=== PATIENT | male | born 1955 | race Caucasian/White ===

== ENCOUNTER 2020-11-23 09:25 | Inpatient (IN) | payer MEDICARE, OTHER ==
[~2020-11-23] VITALS: Ht 170.2 cm; Wt 87.1 kg
--- NOTE | 2020-11-23 09:45 | NUR ---
BIBRA39 HOME, WEAKNESS, DIARRHEA X 3 WEEKS. "I FAINT GOING TO THE BATHROOM" POSITIVE COVID19 CONTACTS. "BLACK TARRY STOOL NOTED." PATIENT A/OX4, BREATHING EVEN AND UNLABORED, NOS OB NOTED. PATIENT COVERED WITH BLACK STOOLS. CLEANED UP THE PATIENT. CHANGED INTO A GOWN. PERICARE AND SKINCARE PROVIDED.
[2020-11-23] MEDS ORDERED: PANTOPRAZOLE 40 MG VIAL ONE (09:48)
[2020-11-23] MEDS ORDERED: IV NS 0.9% 500 ML BAG IV ONE (10:00)
[2020-11-23] MEDS ORDERED: PANTOPRAZOLE 40 MG VIAL IV ONE (10:00)
[2020-11-23 10:25] LABS: BASOPHILS % (AUTO) 0.3 % (0.0-2.0); HEMATOCRIT 21 % (39-51); HEMOGLOBIN 7.4 g/dL (13.5-17.5); LYMPHOCYTES # (AUTO) 0.8 /CMM (0.8-4.8); LYMPHOCYTES % (AUTO) 11.8 % (20.0-44.0); MEAN CORPUSCULAR HGB CONC 35 g/dl (31.0-36.0); MEAN CORPUSCULAR VOLUME 92 fL (80-96); MONOCYTES # (AUTO) 0.5 /CMM (0.1-1.30); MONOCYTES % (AUTO) 7.6 % (2.0-12.0); NEUTROPHILS # (AUTO) 5.6 /CMM (1.8-8.9); NEUTROPHILS % (AUTO) 80.3 % (43.0-81.0); PLATELET COUNT (AUTO) 155 /CMM (150-450); RED BLOOD CELL COUNT(AUTO) 2.31 MIL/uL (4.5-6.0); WHITE BLOOD COUNT (AUTO) 6.9 K/uL (4.3-11.0)
--- NOTE | 2020-11-23 10:41 | NUR ---
COVID SWAB SENT. PATIENT WITH O2 SAT OF 80% ON ROOM AIR, PLACED PATIENT ON 4LPM VIA NC. NO DISTRESS NOTED. NEEDS ATTENDED.
[2020-11-23 11:00] LABS: ALANINE AMINOTRANSFERASE 41 U/L (12-78); ALBUMIN 2.8 g/dL (3.4-5.0); ALKALINE PHOSPHATASE 73 U/L (46-116); ASPARTATE AMINOTRANSFERASE 58 U/L (15-37); BILIRUBIN,DIRECT 0.2 mg/dL (0.0-0.2); BILIRUBIN,TOTAL 0.4 mg/dL (0.2-1.0); CALCIUM, SERUM 7.4 mg/dL (8.5-10.1); CARBON DIOXIDE 16 mmol/L (21-32); CHLORIDE 100 mmol/L (98-107); CREATININE 6.8 mg/dL (0.6-1.3); GLUCOSE 146 mg/dL (74-106); LIPASE 533 U/L (73-393); POTASSIUM 4.6 mmol/L (3.5-5.1); SODIUM SERUM 136 mmol/L (136-145); TOTAL PROTEIN, SERUM 6.5 g/dL (6.4-8.2)
[2020-11-23 11:05] LABS: UREA NITROGEN, BLOOD 199 mg/dL (7-18)
[2020-11-23] MEDS ORDERED: LOSA1TAB39 PO (11:09)
[2020-11-23] MEDS ORDERED: SIMV-46 PO (11:09)
[2020-11-23] MEDS ORDERED: METF-440 PO (11:09)
[2020-11-23] MEDS ORDERED: AMLO2.5T4 PO (11:09)
[2020-11-23] MEDS ORDERED: ATEN50TA PO (11:09)
--- NOTE | 2020-11-23 11:17 | NUR ---
16FR DEMARCO CATH INSERTED PER VERBAL ORDER FROM DR TIAN
[2020-11-23] MEDS ORDERED: LEVOFLOXACIN 750 MG /D5W 150ML 150 ML IV ONE ×2 (11:23→11:30)
[2020-11-23] MEDS ORDERED: IV NS 0.9% 1,000 ML BAG IV ONE (11:30)
[2020-11-23] MEDS ORDERED: ZOLPIDEM TARTRATE 5 MG TABLET PO PRN (11:30)
[2020-11-23] MEDS ORDERED: ONDANSETRON HCL/PF 4 MG/2 ML VIAL IVP PRN (11:30)
[2020-11-23] MEDS ORDERED: MAG HYDROX/AL HYDROX/SIMETH 30 ML UDC PO PRN (11:30)
[2020-11-23] MEDS ORDERED: Z GUARD REMEDY 2 OZ OINT TP PRN (11:30)
[2020-11-23] MEDS ORDERED: FAMOTIDINE/PF INJ 20 MG/2 ML VIAL IV SCH (12:00)
--- NOTE | 2020-11-23 14:06 | NUR ---
CALLED NURSING SUP FOR TELE BED.
--- NOTE | 2020-11-23 15:42 | NUR ---
PT IS COVID + PER RAPID SWAB
--- NOTE | 2020-11-23 15:46 | NUR ---
BED 204-2
--- NOTE | 2020-11-23 15:50 | NUR ---
REPORT GIVENT Lashell TOVAR RN FOR EMMANUEL.
[2020-11-23] MEDS: DEXAMETHASONE SOD PHOSPHATE 10 MG/ML VIAL IV SCH (16:00)
--- NOTE | 2020-11-23 16:33 | NUR ---
PATIENT TRANSFERRED TO ROOM 204-2 VIA ACLS PROTOCOL. NO DISTRESS NOTED. NEEDS ATTENDED.
[2020-11-23 17:24] LABS: C-REACTIVE PROTEIN 5.7 mg/dL (0.0-0.9)
[2020-11-23] MEDS: PANTOPRAZOLE 40 MG VIAL IV SCH (17:25)
--- NOTE | 2020-11-23 18:51 | NUR ---
RN closing Patient in bed resting, does no appears pain or discomfort. Skin is warm to touch keep clean/dry, intact site with SL. Respiratory even and unlabored with oxygen at 15LPM with NRM O2sat 99%. Kept elevated HOB for ensure air way and aspiration precaution and lowest bed for safety. Call light within reach, will endorse airdox fitter.
--- NOTE | 2020-11-23 19:30 | NUR ---
TELE/RN OPENING NOTES RECEIVED PATIENT IN BED RESTING. PATIENT IS ALERT AND ORIENTED X 4. PATIENT BREATHING IS LABORED, NO SIGNS OF RESPIRATORY DISTRESS NOTED. PATIENT HAS RIGHT WRIST #18G AND LEFT FA #20G. SAFETY MEASURES ARE IN PLACE, BED IS LOCKED AND PLACED IN THE LOW POSITION , SIDE RAILS UP X 2, CALL LIGHT WITHIN REACH. WILL CONTINUE TO MONITOR THROUGH OUT SHIFT.
[2020-11-23 20:00] VITALS: BP 90/54
[2020-11-23] MEDS ORDERED: SIMVASTATIN 20 MG TABLET PO SCH (22:00)
[2020-11-23 23:25] VITALS: BP 86/46
--- NOTE | 2020-11-23 23:25 | NUR ---
TELE/RN NOTES PATIENT STARTED ON BLOOD TRANSFUSION. STARTED ON LEFT FA, IV ACCESS INTACT. V/S BP 85/46 HR 76 RR 24 ON 15L NRM 97% TEMP 97.6. WILL CONTINUE TO MONITOR.
[2020-11-23 23:45] VITALS: BP 85/43
[2020-11-23] MEDS: HYDROCODONE/APAP 5/325MG TABLET PO PRN (23:50)
[2020-11-24] VITALS (9 sets, daily range): BP systolic 80–104; BP diastolic 42–64
[2020-11-24] MEDS: HYDROCODONE/APAP 5/325MG TABLET PO PRN (01:06)
[2020-11-24 07:00] LABS: BASOPHILS % (AUTO) 0.5 % (0.0-2.0); HEMATOCRIT 23 % (39-51); HEMOGLOBIN 7.8 g/dL (13.5-17.5); LYMPHOCYTES # (AUTO) 0.3 /CMM (0.8-4.8); MEAN CORPUSCULAR HGB CONC 34 g/dl (31.0-36.0); MEAN CORPUSCULAR VOLUME 93 fL (80-96); MONOCYTES # (AUTO) 0.2 /CMM (0.1-1.30); MONOCYTES % (AUTO) 5.5 % (2.0-12.0); NEUTROPHILS # (AUTO) 2.9 /CMM (1.8-8.9); PLATELET COUNT (AUTO) 104 /CMM (150-450); RED BLOOD CELL COUNT(AUTO) 2.45 MIL/uL (4.5-6.0); WHITE BLOOD COUNT (AUTO) 3.5 K/uL (4.3-11.0)
--- NOTE | 2020-11-24 07:00 | NUR ---
TELE/RN CLOSING NOTES PATIENT IN BED RESTING. PATIENT IS ALERT AND ORIENTED X 4. PATIENT BREATHING IS UNLABORED, NO SIGNS OF RESPIRATORY DISTRESS NOTED. PATIENT HAS RIGHT WRIST #18G AND LEFT FA #20G. PATIENT RECEIVED BLOOD TRANSFUSION ENDED AT 0238HRS. PATIENT IS HYPOTENSIVE. ALL NEEDS HAVE BEEN MET DURING SHIFT. SAFETY MEASURES ARE IN PLACE, BED IS LOCKED AND PLACED IN THE LOW POSITION , SIDE RAILS UP X 2, CALL LIGHT WITHIN REACH. WILL ENDORSE CARE TO DAY SHIFT NURSE.
--- NOTE | 2020-11-24 07:55 | NUR ---
MAIL COURIER OPEN NOTES PATIENT IS A/O X 4 WITH NO SIGNS OF DISTRESS ON 15L NONE-REBREATHER. IV R WRIST 18G AND L FA #20G INTACT. NO COMPLAIN OF PAIN AT THIS TIME. ON TELE MONITOR SR 62. SAFETY MEASURES ARE APPLIED, BED IS IN LOW POSITION SIDE RAILS UP X 2. CALL LIGHT WITHIN REACH. WILL CONTINUE TO MONITOR.
[2020-11-24 08:33] LABS: ALBUMIN 2.2 g/dL (3.4-5.0); BILIRUBIN,TOTAL 0.4 mg/dL (0.2-1.0); CALCIUM, SERUM 6.7 mg/dL (8.5-10.1); CREATININE 5.3 mg/dL (0.6-1.3); MAGNESIUM 2.2 mg/dL (1.8-2.4); PHOSPHORUS 6.1 mg/dL (2.5-4.9); POTASSIUM 4.5 mmol/L (3.5-5.1); TOTAL PROTEIN, SERUM 5.4 g/dL (6.4-8.2)
[2020-11-24] MEDS ORDERED: AMLODIPINE BESYLATE 2.5 MG TABLET PO SCH (09:00)
[2020-11-24] MEDS ORDERED: ATENOLOL 50 MG TABLET PO SCH (09:00)
--- NOTE | 2020-11-24 09:17 | NUR ---
INFORMED DR. RAYMOND ABOUT PATIENT ELEVATED TROPONIN 4.537.
--- NOTE | 2020-11-24 09:24 | NUR ---
RN NOTES RELAYED BUN 175 AND LOW BP OF 88/[address] RUTHERFORD WITH ORDER FOR NS BOLUS 500ML.
[2020-11-24] MEDS ORDERED: HEPARIN INFUSION/D5W 500 ML IV PRN (09:30)
[2020-11-24] MEDS ORDERED: IV NS 0.9% 500 ML IV ONE (09:30)
[2020-11-24] MEDS: ASPIRIN 81 MG TAB.CHEW PO SCH (09:33)
[2020-11-24] MEDS: DEXAMETHASONE SOD PHOSPHATE 10 MG/ML VIAL IV SCH (09:33)
[2020-11-24] MEDS: PANTOPRAZOLE 40 MG VIAL IV SCH ×2 (09:33→16:06)
--- NOTE | 2020-11-24 09:40 | NUR ---
CALLED DR. RAYMOND TO CLARIFY ORDER FOR HEPARIN DRIP SINCE PATIENT IS A GI BLEED, ANEMIC. S/P BLOOD TRANSFUSION ON 11/24/2019 @0200. DR. RAYMOND SAID TO CLARIFY ODER FIRST WITH DR. RUTHERFORD BEFORE STARTING .
--- NOTE | 2020-11-24 09:45 | NUR ---
CALLED DR. RUTHERFORD TO CLARIFY FIRST IF ITS OK TO START PATIENT ON HEPARIN DRIP DO TO ELEVATED TROPONIN 4.537. NO ANSWER YET WAITING FOR ORDERS.
--- NOTE | 2020-11-24 11:16 | NUR ---
INFORMED DR. RAYMOND ABOUT NOT HAVING CLARIFIED ORDERS YET FROM DR. RUTHERFORD IF ITS OK TO START PATIENT ON HEPARIN DRIP DO TO ELEVATED TROPONIN 4.537.
--- NOTE | 2020-11-24 11:35 | NUR ---
CALLED DR. RUTHERFORD TO CLARIFY AGAIN TO SEE IF ITS OK TO START PATIENT ON HEPARIN DRIP DO TO ELEVATED TROPONIN 4.537. NO ANSWER YET WAITING FOR ORDERS. SPOKE TO CHARGE NURSE JONI ABOUT IT AND SAID TO HOLD HEPARIN DRIP UNTIL GETTING CONFORMATION FOR HE ORDER FROM DR. RUTHERFORD.
--- NOTE | 2020-11-24 11:40 | NUR ---
INFORMED PHARMACY WE ARE HOLDING HEPARIN DRIP UNTIL WE GET THE OK TO START PATIENT ON HEPARIN DRIP FROM DR. RUTHERFORD. WILL CONTINUE TO MONITOR PATIENT.
--- NOTE | 2020-11-24 12:00 | NUR ---
PER DR. SANGEETA MISTRY TO GIVE HEPARIN DRIP ORDERED BY DR. RAYMOND.
--- NOTE | 2020-11-24 13:30 | NUR ---
HEPARIN DRIP WAS INITIALLY STARTED, EDUCATED PATIENT ON HEPARIN DRIP TO WATCH FOR ANY BLEEDING, PATIENT REPEATED BACK UNDERSTANDING, WILL CONTINUE TO MONITOR.
[2020-11-24] MEDS: ACETAMINOPHEN 325 MG TABLET PO PRN (17:22)
--- NOTE | 2020-11-24 19:44 | NUR ---
GAS METER CHECKER CLOSING NOTES PATIENT IS A/O X 4 WITH NO SIGNS OF DISTRESS ON 15L NONE-REBREATHER. IV L FA #20G INTACT RUNNING HEPARIN 1,100 U/HR PER HEPARIN PROTOCOL. NO COMPLAIN OF PAIN AT THIS TIME. ON TELE MONITOR SR 62. PATIENT KEPT CLEAN AND DRY. ALL NEEDS, CARE, TREATMENT, AND MEDICATIONS WERE ADMINISTERED ANTICIPATED PER ORDER. SAFETY MEASURES ARE APPLIED, BED IS IN LOW POSITION SIDE RAILS UP X 2. CALL LIGHT WITHIN REACH WILL ENDORSE TO THE ANNUAL CAMPAIGN MANAGER NURSE.
--- NOTE | 2020-11-24 20:24 | NUR ---
MANAGER SECURITY AND SAFETY OPENING NOTE Patient awake in bed, A/O x4, on bedrest. Tele monitor reading sinus rhythm. Breathing even, unlabored on 15 LPM non-rebreather mask. Skin is warm, pink, dry, appropriate for ethnicity, intact. Mild weakness noted on lower extremities. Borden catheter in place. Urine output clear, yellow. Patient is NPO except medications. IV site LFA 20g running heparin gtt @ 1100 units/hr. Bed in low position, wheels locked, side rails up x2, call light within reach.
--- NOTE | 2020-11-24 21:49 | NUR ---
RESPIRATORY MEDICINE PHYSICIAN NOTE Critical lab value reported. aPTT 108.4. Hospitalist notified. Heparin gtt stop for 1 hour. Will continue to monitor.
[2020-11-25] VITALS (9 sets, daily range): BP systolic 80–115; BP diastolic 51–72
--- NOTE | 2020-11-25 02:37 | NUR ---
BIOPHYSICS SCIENTIST NOTE Critical lab value reported by lab. aPTT 134.8. Hospitalist notified. Stopped infusion for 1 hour. Will continue to monitor.
--- NOTE | 2020-11-25 02:50 | NUR ---
SOLAR THERMAL INSTALLER NOTE Lab called to report gram(+) cocci clusters. Hospitalist notified. Afebrile. No acute distress noted. Will continue to monitor.
[2020-11-25] MEDS ORDERED: IV NS 0.9% 500 ML IV ONE (04:30)
--- NOTE | 2020-11-25 05:05 | NUR ---
MEDICAL RECORDS DIRECTOR NOTE Blood pressure 80/64. Hospitalist notified. Received new order for IV bolus. Will continue to monitor.
--- NOTE | 2020-11-25 05:06 | NUR ---
REGULATORY AFFAIRS SPECIALIST NOTE Per hospitalist, holding heparin gtt until next lab draw.
[2020-11-25 05:13] LABS: BASOPHILS % (AUTO) 0.3 % (0.0-2.0); HEMATOCRIT 26 % (39-51); HEMOGLOBIN 9.1 g/dL (13.5-17.5); LYMPHOCYTES # (AUTO) 0.4 /CMM (0.8-4.8); LYMPHOCYTES % (AUTO) 5.4 % (20.0-44.0); MEAN CORPUSCULAR HGB CONC 35 g/dl (31.0-36.0); MEAN CORPUSCULAR VOLUME 92 fL (80-96); MONOCYTES # (AUTO) 0.4 /CMM (0.1-1.30); MONOCYTES % (AUTO) 5.6 % (2.0-12.0); NEUTROPHILS # (AUTO) 6.3 /CMM (1.8-8.9); NEUTROPHILS % (AUTO) 88.7 % (43.0-81.0); PLATELET COUNT (AUTO) 139 /CMM (150-450); RED BLOOD CELL COUNT(AUTO) 2.86 MIL/uL (4.5-6.0); WHITE BLOOD COUNT (AUTO) 7.1 K/uL (4.3-11.0)
[2020-11-25 05:28] LABS: ALBUMIN 2.5 g/dL (3.4-5.0); BILIRUBIN,TOTAL 0.4 mg/dL (0.2-1.0); CALCIUM, SERUM 7.3 mg/dL (8.5-10.1); CREATININE 4.1 mg/dL (0.6-1.3); MAGNESIUM 2.4 mg/dL (1.8-2.4); PHOSPHORUS 5.1 mg/dL (2.5-4.9); POTASSIUM 4.3 mmol/L (3.5-5.1); TOTAL PROTEIN, SERUM 6.2 g/dL (6.4-8.2)
--- NOTE | 2020-11-25 05:48 | NUR ---
QUALITY CONTROL LAB TECHNICIAN NOTE Lab called for critical lab value. Trop 2.698. Hospitalist notified. Will continue to monitor.
[2020-11-25] MEDS ORDERED: VANCOMYCIN 1.5 GM in IV D5W 500ml IV ONE (06:30)
--- NOTE | 2020-11-25 07:14 | NUR ---
CERAMIC ARTIST CLOSING NOTE Patient asleep in bed, A/O x4, on bedrest. Tele monitor reading sinus rhythm. Breathing even, mild labor on 15 LPM non-rebreather mask, satting 94%. Skin is warm, pink, dry, appropriate for ethnicity, intact. Mild weakness noted on lower extremities. Borden catheter in place, 1275 ml output. Urine output clear, yellow. Patient is NPO except medications. IV site LFA 20g running heparin gtt @ 700 units/hr. Bed in low position, wheels locked, side rails up x2, call light within reach. Will endorse to oncoming nurse.
--- NOTE | 2020-11-25 07:25 | NUR ---
TIE LOADER OPENING NOTE Patient is in bed, awake and verbally responsive. A/O x4, able to make needs known. Breathing even, not distressed, currently on 15 LPM non-rebreather mask, saturating between 94-96%. On tele monitoring, reading of sinus rhythm, hr is in the 70's. Borden catheter intact, draining urine of yellow color. Currently NPO except medications. IV line on LFA 20g, intact and patent. Safety precs in place: bed locked and on lowest position, side rails up x2, call light within reach. Will continue to monitor.
[2020-11-25] MEDS: ASPIRIN 81 MG TAB.CHEW PO SCH (08:25)
[2020-11-25] MEDS: DEXAMETHASONE SOD PHOSPHATE 10 MG/ML VIAL IV SCH (08:25)
[2020-11-25] MEDS: PANTOPRAZOLE 40 MG VIAL IV SCH ×2 (08:28→17:13)
[2020-11-25] MEDS: HYDROCORTISONE SOD SUCCINATE 100 MG/2 ML VIAL IV SCH ×3 (08:30→23:07)
[2020-11-25] MEDS: IV NS 0.9% 1,000 ML IV PRN (11:48)
[2020-11-25] MEDS: SOD FERRIC GLUC 125 MG in IV NS 0.9% 100 ML IV SCH (15:07)
[2020-11-25] MEDS: HEPARIN SODIUM, PORCINE 5000 UNITS/1 ML VIAL SQ SCH ×2 (17:20→23:07)
--- NOTE | 2020-11-25 19:01 | NUR ---
UNEMPLOYMENT INSPECTOR CLOSING NOTE Patient is in bed resting, awake and verbally responsive. A/O x4, able to make needs known. Breathing even and unlabored, tolerating 15 LPM non-rebreather mask, saturating between 90-94%. On tele monitoring, reading of sinus rhythm, hr in the low 70's. Borden catheter intact, draining urine of yellow color. Changed diet to ccho, upgraded as per Dr. Stock. IV line on LFA 20g, intact and patent. Safety maintained: bed locked and on lowest position, side rails up x2, call light within reach. Will endorse to night court magistrate rn for suhas.
--- NOTE | 2020-11-25 20:43 | NUR ---
MS2/RN DURING INITIAL SHIFT ROUNDING, PATIENT WAS LYING IN BED TALKING ON THE PHONE, AWAKE, ALERT, ORIENTED, COMFORTABLE, NO C/O PAIN, NO DISTRESS NOTE, ON NRM 15LPM O2, CALL LIGHT IN REACH, WILL MONITOR.
[2020-11-26] VITALS: BP 122/71
[2020-11-26 02:08] LABS: PTH, INTACT 180 pg/mL (15-65)
--- NOTE | 2020-11-26 02:51 | NUR ---
MS2/RN O2 SAT 77-83, PATIENT REPORTS "HARD BREATHING", NO CHEST PAIN, NOTIFIED MONSTER ALMEIDA DNP, WITH ORDER FOR HIGH FLOW OXYGEN. ORDER ENTERED, NOTIFIED RT.
--- NOTE | 2020-11-26 03:03 | NUR ---
MS2/RN PER RT, PATIENT IS NOW ON HIGH FLOW O2 ORDERED, WITH O2 SAT 95%. WILL CONTINUE TO MONITOR PATIENT.
[2020-11-26 04:00] VITALS: BP 128/69
[2020-11-26] MEDS: IV NS 0.9% 1,000 ML IV PRN ×2 (04:34→15:22)
[2020-11-26] MEDS: HYDROCORTISONE SOD SUCCINATE 100 MG/2 ML VIAL IV SCH ×2 (05:38→20:55)
--- NOTE | 2020-11-26 06:16 | NUR ---
MS2/RN PATIENT IS AWAKE, ALERT, ORIENTED, COMFORTABLE, NO C/O PAIN, NO DISTRESS NOTED, ON HIGH FLOW OXYGEN, CALL LIGHT IN REACH, ALL NEEDS ATTENDED AT THIS TIME, WILL CONTINUE TO MONITOR.
[2020-11-26] MEDS ORDERED: VANCOMYCIN 500 MG in IV D5W 100 ML IV PRN (07:00)
[2020-11-26 07:11] LABS: BASOPHILS % (AUTO) 0.2 % (0.0-2.0); HEMATOCRIT 23 % (39-51); HEMOGLOBIN 8.3 g/dL (13.5-17.5); LYMPHOCYTES # (AUTO) 0.3 /CMM (0.8-4.8); LYMPHOCYTES % (AUTO) 3.8 % (20.0-44.0); MEAN CORPUSCULAR HGB CONC 35 g/dl (31.0-36.0); MEAN CORPUSCULAR VOLUME 91 fL (80-96); MONOCYTES # (AUTO) 0.4 /CMM (0.1-1.30); MONOCYTES % (AUTO) 5.5 % (2.0-12.0); NEUTROPHILS # (AUTO) 7.2 /CMM (1.8-8.9); NEUTROPHILS % (AUTO) 90.5 % (43.0-81.0); PLATELET COUNT (AUTO) 163 /CMM (150-450); RED BLOOD CELL COUNT(AUTO) 2.57 MIL/uL (4.5-6.0); WHITE BLOOD COUNT (AUTO) 7.9 K/uL (4.3-11.0)
[2020-11-26 07:37] LABS: ALBUMIN 2.4 g/dL (3.4-5.0); BILIRUBIN,TOTAL 0.4 mg/dL (0.2-1.0); CALCIUM, SERUM 7.3 mg/dL (8.5-10.1); CREATININE 2.9 mg/dL (0.6-1.3); MAGNESIUM 2.5 mg/dL (1.8-2.4); PHOSPHORUS 3.7 mg/dL (2.5-4.9); POTASSIUM 4.1 mmol/L (3.5-5.1)
[2020-11-26 08:16] VITALS: BP 114/68
--- NOTE | 2020-11-26 08:17 | NUR ---
MS/RN OPENING NOTES RECEIVED PATIENT IN BED. AWAKE. ALERT AND ORIENTED X4. PATIENT IS ON HIGH FLOW OXYGEN AT 60LPM SATURATION 97%. PATIENT IN NO APPARENT RESPIRATORY DISTRESS NOTED. NO COMPLAINED OF PAIN AT THIS TIME. TELE MONITOR READING SINUS RHYTHM 90. BUN [address] HARO IS AWARE, NO NEW ORDER AT THIS TIME. WILL CONTINUE TO MONITOR.
[2020-11-26] MEDS: DEXAMETHASONE SOD PHOSPHATE 10 MG/ML VIAL IV SCH (08:55)
[2020-11-26] MEDS: ASPIRIN 81 MG TAB.CHEW PO SCH (08:56)
[2020-11-26] MEDS: PANTOPRAZOLE 40 MG VIAL IV SCH ×2 (08:56→16:39)
--- NOTE | 2020-11-26 09:15 | NUR ---
TELE/RN NOTES DR. PARHAM ORDER TO TITRATE FIO2 FROM 100% TO 50% IF SATURATION 90-100. NOTED AND CARRIED OUT. RESPIRATORY THERAPIST IS AWARE.
[2020-11-26] MEDS: HEPARIN SODIUM, PORCINE 5000 UNITS/1 ML VIAL SQ SCH ×2 (09:24→20:57)
[2020-11-26 12:15] VITALS: BP 122/73
[2020-11-26 13:11] LABS: *SPE A/G RATIO 0.8 (0.7-1.7); *SPE ALBUMIN 2.1 g/dL (2.9-4.4); *SPE ALPHA-1-GLOBULIN 0.3 g/dL (0.0-0.4); *SPE BETA GLOBULIN 0.7 g/dL (0.7-1.3); *SPE GLOBULIN, TOTAL 2.5 g/dL (2.2-3.9); *SPE M-SPIKE Not Observed g/dL (Not Observed); *SPEGAMMA GLOBULIN 0.4 g/dL (0.4-1.8)
[2020-11-26] MEDS: SOD FERRIC GLUC 125 MG in IV NS 0.9% 100 ML IV SCH (15:15)
[2020-11-26 16:30] VITALS: BP 124/76
[2020-11-26] MEDS: VANCOMYCIN 0.75 GM in IV D5W 250 ML IV SCH (16:39)
--- NOTE | 2020-11-26 18:55 | NUR ---
TELE/RN CLOSING NOTES PATIENT IS ON BED. ALERT AND ORIENTED X4. PATIENT IS ON HIGH FLOW OXYGEN AT 60LPM SATURATION 94%. PATIENT IN NO APPARENT RESPIRATORY DISTRESS NOTED. NO COMPLAINED OF PAIN AT THIS TIME. TELE MONITOR READING SINUS RHYTHM 88 BPM WITH SLIGHTLY INVERTED T WAVE. SEEN AND EXAMINED BY MD WITH ORDERS MADE AND CARRIED OUT. ALL DUE MEDICATIONS WAS GIVEN. IV ACCESS AT LEFT FOREARM WITH IV FLUID OF NS 1L AT 70 ML/HR ON AND INFUSING WELL. SAFETY PRECAUTIONS WAS IN PLACED. BED IN LOWEST POSITION AND LOCKED. SIDERAILS UP X2. WILL ENDORSED TO WILDLIFE REFUGE SPECIALIST FOR EMMANUEL.
--- NOTE | 2020-11-26 19:30 | NUR ---
TELE/RN OPENING NOTES RECEIVED PATIENT IN BED. PATIENT ALERT AND ORIENTED X 3. PATIENT IS ON HIGH FLOW OXYGEN AT 50LPM SATURATION 92%. PATIENT IN NO APPARENT RESPIRATORY DISTRESS NOTED. NO COMPLAINED OF PAIN AT THIS TIME. TELE MONITOR READING SINUS RHYTHM. IV ACCESS AT LEFT FOREARM WITH IV FLUID OF NS AT 70 ML/HR. SAFETY PRECAUTIONS ARE IN PLACED. BED IN LOWEST POSITION AND LOCKED. SIDE RAILS UP X 3. WILL CONTINUE TO MONITOR THROUGH OUT SHIFT.
[2020-11-26 20:00] VITALS: BP 138/77
[2020-11-27] VITALS (9 sets, daily range): BP systolic 112–135; BP diastolic 67–89
--- NOTE | 2020-11-27 05:00 | NUR ---
TELE/RN NOTES PATIENT HIGH FLOW SETTING AT 40L NOT TOLERATING WELL. TITRATED UP TO 50L, PATIENT O2 STAT AT 88-90%. PATIENT TOLERATING HIGH FLOW SETTING AT 60L 02 STAT AT 94%. WILL CONTINUE TO MONITOR.
--- NOTE | 2020-11-27 06:39 | NUR ---
TELE/RN CLOSING NOTES PATIENT IN BED SLEEPING EASY TO AROUSE. PATIENT ALERT AND ORIENTED X 3. PATIENT IS ON HIGH FLOW OXYGEN AT 60L/PM SATURATION 94%. PATIENT IN NO APPARENT RESPIRATORY DISTRESS NOTED. TELE MONITOR READING SINUS RHYTHM. IV ACCESS AT LEFT FOREARM WITH IV FLUID OF NS AT 70 ML/HR. ALL PATIENTS NEEDS HAVE BEEN MET DURING SHIFT. SAFETY MEASURES ARE IN PLACE, BED IS LOCKED AND PLACED IN THE LOWEST POSITION, CALL LIGHT IS WITHIN REACH, SIDE RAILS X 3. WILL ENDORSE CARE TO DAY SHIFT NURSE.
[2020-11-27 06:45] LABS: HEMATOCRIT 22 % (39-51); HEMOGLOBIN 7.7 g/dL (13.5-17.5); LYMPHOCYTES # (AUTO) 0.5 /CMM (0.8-4.8); LYMPHOCYTES % (AUTO) 6.2 % (20.0-44.0); MEAN CORPUSCULAR HGB CONC 35 g/dl (31.0-36.0); MEAN CORPUSCULAR VOLUME 93 fL (80-96); MONOCYTES # (AUTO) 0.5 /CMM (0.1-1.30); MONOCYTES % (AUTO) 6.6 % (2.0-12.0); NEUTROPHILS # (AUTO) 6.5 /CMM (1.8-8.9); NEUTROPHILS % (AUTO) 87.2 % (43.0-81.0); PLATELET COUNT (AUTO) 158 /CMM (150-450); RED BLOOD CELL COUNT(AUTO) 2.43 MIL/uL (4.5-6.0); WHITE BLOOD COUNT (AUTO) 7.5 K/uL (4.3-11.0)
[2020-11-27 07:53] LABS: CALCIUM, SERUM 6.8 mg/dL (8.5-10.1); CREATININE 2.4 mg/dL (0.6-1.3); MAGNESIUM 2.4 mg/dL (1.8-2.4); PHOSPHORUS 3.5 mg/dL (2.5-4.9)
--- NOTE | 2020-11-27 08:00 | NUR ---
RN Opening note Received patient in bed, AO x 1 able to responds all stimuli, Pt does no appears pain or distress. Skin is warm to touch keep clean/dry intact IV site, respiratory even and unlabored with hi flow . Kept locked bed with elevated HOB for aspiration precaution and ensure airway and lowest bed foe safety. Call light within reach, will continue to monitor.
[2020-11-27 10:11] LABS: BAND % (MANUAL) 1 % (0.0-5.0); LYMPHOCYTES % (MANUAL) 9 % (16-48); METAMYELOCYTES % 1 % (0-0); MONOCYTES % (MANUAL) 3 % (0-11.0); MYELOCYTES % 3 % (0-0); NEUTROPHILS % (MANUAL) 83 (42-76)
[2020-11-27] MEDS: DEXAMETHASONE SOD PHOSPHATE 10 MG/ML VIAL IV SCH (10:54)
[2020-11-27] MEDS: ASPIRIN 81 MG TAB.CHEW PO SCH (10:54)
[2020-11-27] MEDS: PANTOPRAZOLE 40 MG VIAL IV SCH ×2 (10:55→17:25)
[2020-11-27] MEDS: HYDROCORTISONE SOD SUCCINATE 100 MG/2 ML VIAL IV SCH ×2 (10:56→21:37)
[2020-11-27] MEDS: HEPARIN SODIUM, PORCINE 5000 UNITS/1 ML VIAL SQ SCH ×2 (10:58→11:24)
[2020-11-27] MEDS: IV 1/2NS 1000 ML 1,000 ML IV PRN (11:35)
[2020-11-27] MEDS ORDERED: VANCOMYCIN 1 GM in IV D5W 250ml IV SCH (12:00)
[2020-11-27] MEDS: SOD FERRIC GLUC 125 MG in IV NS 0.9% 100 ML IV SCH (15:23)
[2020-11-27] MEDS: VANCOMYCIN 0.75 GM in IV D5W 250 ML IV SCH (16:06)
--- NOTE | 2020-11-27 18:45 | NUR ---
RN closing Patient in bed resting, finished RBC transfusion no s/s of reaction observed, patient denies itchy skin or discomfort. Skin is warm to touch no fever keep clean/dry, intact IV site. Respiratory even and unlabored with high flow oxygen at 60L Fio2 100% O2sat 93%. Kept elevated HOB for ensure air way and aspiration precaution and lowest bed for safety. Call light within reach, will endorse fast food shift lead.
--- NOTE | 2020-11-27 19:30 | NUR ---
supply technician opening notes Pt is resting in bed comfortably. Pt is alert and orientedX3-4. Respiration on high flow 60 L. No SOB. No S/S of distress noted. IV site at LFA# 20 is clean, intact and infusing well 0.45% @ 75 ml/hr. Borden cath is intact, patent and draining yellow urine. Tele monitor showed SR hr at 87 bpm. safety precautions is maintained. Bed at low position, brakes locked, side rails upX2 and call light is within reach. Will continue to monitor.
--- NOTE | 2020-11-27 20:17 | NUR ---
Tle RN notes Collected a stool sample for occult blood. Called lab to mixing picker tender the specimen.
--- NOTE | 2020-11-27 21:05 | NUR ---
tents assembler notes Informed and notified Boston Graham NP regarding Pt's history of diabetes and no order for accucheck. pt stated " i have diabetes and taking oral meds and i don't remember the name of meds." FOOD PHOTOGRAPHER order for mild sliding scale ACHS. Order carried out.
[2020-11-27 21:43] LABS: OCCULT BLOOD STOOL POSITIVE (NEGATIVE)
[2020-11-27] MEDS ORDERED: DEXTROSE 50%-WATER 50 ML DISP.SYRIN IV PRN (22:00)
[2020-11-27] MEDS: BLOOD SUGAR DIAGNOSTIC 1 EACH STRIP IN SCH (23:02)
[2020-11-27] MEDS: INSULIN REGULAR, HUMAN 100 UNIT/ML 3 ML VIAL SQ PRN (23:04)
[2020-11-28] VITALS (7 sets, daily range): BP systolic 133–147; BP diastolic 85–94
--- NOTE | 2020-11-28 00:09 | NUR ---
store detective notes Informed and notified COMMUNITY PHARMACIST regarding Pt's occult blood was positive. No new orders received. Will continue to monitor.
[2020-11-28] MEDS: BLOOD SUGAR DIAGNOSTIC 1 EACH STRIP IN SCH ×4 (06:41→22:00)
[2020-11-28] MEDS: INSULIN REGULAR, HUMAN 100 UNIT/ML 3 ML VIAL SQ PRN ×4 (06:43→21:32)
--- NOTE | 2020-11-28 06:50 | NUR ---
freelance displayer closing notes Pt is resting in bed comfortably. Pt is alert and orientedX3-4. Respiration on high flow 60 L Fio2 is 100%. No SOB. No S/S of distress noted. VS is stable. Afebrile. Routine meds were given as ordered. IV site at LFA# 20 is clean, intact and infusing well 0.45% @ 75 ml/hr. Borden cath is intact, patent and draining yellow urine 2000ml. Tele monitor showed SR hr at 85 bpm. Kept Pt clean, dry and comfortable. Safety precautions is maintained. Bed at low position, brakes locked, side rails upX2 and call light is within reach. Will endorse to morning nurse for EMMANUEL. Addendum: 11/28/20 at 0759 by SOLIS POTTS RN O2 sat is between 91-96%.
[2020-11-28 07:21] LABS: HEMATOCRIT 27 % (39-51); HEMOGLOBIN 9.4 g/dL (13.5-17.5); LYMPHOCYTES # (AUTO) 0.5 /CMM (0.8-4.8); LYMPHOCYTES % (AUTO) 5.3 % (20.0-44.0); MEAN CORPUSCULAR HGB CONC 35 g/dl (31.0-36.0); MEAN CORPUSCULAR VOLUME 92 fL (80-96); MONOCYTES # (AUTO) 0.5 /CMM (0.1-1.30); NEUTROPHILS # (AUTO) 8.5 /CMM (1.8-8.9); NEUTROPHILS % (AUTO) 89.7 % (43.0-81.0); PLATELET COUNT (AUTO) 180 /CMM (150-450); RED BLOOD CELL COUNT(AUTO) 2.96 MIL/uL (4.5-6.0); WHITE BLOOD COUNT (AUTO) 9.5 K/uL (4.3-11.0)
--- NOTE | 2020-11-28 07:30 | NUR ---
TELE/RN OPENING NOTE THE PATIENT IS RECEIVED IN BED. HE IS ON HIGH FLOW OXYGEN AT 60L FIO2 100%. PATIENT IS NOTED TO HAVE SOB WITH EXERTION. RESPIRATION REGULAR. PATIENT IS ALERT AND ORIENTED X3. DENIES PAIN. LFA G 20 PATENT AND 1/2 NS INFUSING AT 75ML/HR AND NO S/S INFILTRATION NOTED. TELE BOX READING IS SR 81. DEMARCO CATH PRESENT AND DRAINING CLEAR, YELLOW COLOR URINE. BED LOW AND LOCKED. SIDE RAILS UP X3. CALL LIGHT WITHIN REACH. WILL CONTINUE TO MONITOR.
[2020-11-28 07:46] LABS: CALCIUM, SERUM 6.8 mg/dL (8.5-10.1); CREATININE 2.1 mg/dL (0.6-1.3)
[2020-11-28] MEDS: DEXAMETHASONE SOD PHOSPHATE 10 MG/ML VIAL IV SCH (08:36)
[2020-11-28] MEDS: PANTOPRAZOLE 40 MG VIAL IV SCH ×2 (08:37→17:23)
[2020-11-28] MEDS: HYDROCORTISONE SOD SUCCINATE 100 MG/2 ML VIAL IV SCH ×2 (08:37→21:21)
[2020-11-28] MEDS: ASPIRIN 81 MG TAB.CHEW PO SCH ×2 (08:38→09:00)
[2020-11-28] MEDS: HEPARIN SODIUM, PORCINE 5000 UNITS/1 ML VIAL SQ SCH ×2 (09:00→21:00)
[2020-11-28] MEDS: IV 1/2NS 1000 ML 1,000 ML IV PRN (11:42)
--- NOTE | 2020-11-28 12:12 | NUR ---
RN NOTE PER DR HARO ASPIRIN 81 MF AND HEPARIN 5000 UNIT DUE AT 0900 ARE HELD.
[2020-11-28 13:58] LABS: BAND % (MANUAL) 3 % (0.0-5.0); LYMPHOCYTES % (MANUAL) 3 % (16-48); METAMYELOCYTES % 1 % (0-0); MONOCYTES % (MANUAL) 2 % (0-11.0); MYELOCYTES % 2 % (0-0); NEUTROPHILS % (MANUAL) 89 (42-76)
[2020-11-28] MEDS: SOD FERRIC GLUC 125 MG in IV NS 0.9% 100 ML IV SCH (14:54)
[2020-11-28] MEDS: VANCOMYCIN 0.75 GM in IV D5W 250 ML IV SCH (17:23)
--- NOTE | 2020-11-28 17:33 | NUR ---
TELE/RN URINE COLLECTED URINE COLLECTED AND LAB IS MADE AWARE TO SHIPPING CLERK CRATING THE SPECIMEN.
--- NOTE | 2020-11-28 18:05 | NUR ---
TELE/RN CLOSING NOTE PATIENT ALERT AND ORIENTED X3, ON HIGH FLOW OXYGEN AT 60L FIO2 100%. RESPIRATION REGULAR AND UNLABORED AT THIS TIME. DENIES PAIN. LFA G 20 PATENT AND 1/2 NS INFUSING AT 75ML/HR AND NO S/S INFILTRATION NOTED. TELE BOX READING IS SR 81. DEMARCO CATH PRESENT AND DRAINING CLEAR, YELLOW COLOR URINE. NO BLADDER DISTENSION NOTED. BED LOW AND LOCKED. SIDE RAILS UP X3. CALL LIGHT WITHIN REACH. WILL CONTINUE TO MONITOR. Addendum: 11/28/20 at 1828 by CYNTHIA BUCHANAN RN TELE/RN NOTE TELE BOX READING IS SR 81.
[2020-11-28 18:28] LABS: BILIRUBIN,URINE NEGATIVE (NEGATIVE); COLOR,URINE YELLOW (YELLOW); LEUKOCYTE ESTERASE ,URINE NEGATIVE (NEGATIVE); NITRITE, URINE NEGATIVE (NEGATIVE); PH,URINE 5.5 (5.0-8.0); PROTEIN,URINE 30 mg/dl (NEGATIVE); UGLUCOSE 250 MG/DL mg/dL (NEGATIVE); UROBILINOGEN,URINE 0.2 EU/dL (0.2)
[2020-11-28 18:56] LABS: CREATININE, URINE 80.5 MG/DL (30.0-125.0)
[2020-11-28 20:03] LABS: BACTERIA,URINE None seen /HPF (None Seen); SQUAMOUS EPITHELIAL CELL,UR 0-2 /HPF (None Seen)
[2020-11-28 20:04] LABS: URIC ACID CRYSTALS,URINE Moderate /HPF (None Seen)
[2020-11-28 20:15] LABS: EOSINOPHIL,URINE RARE
[2020-11-29] VITALS (8 sets, daily range): BP systolic 122–149; BP diastolic 63–92
[2020-11-29] MEDS: IV 1/2NS 1000 ML 1,000 ML IV PRN (06:56)
[2020-11-29] MEDS: INSULIN REGULAR, HUMAN 100 UNIT/ML 3 ML VIAL SQ PRN ×3 (06:57→23:16)
--- NOTE | 2020-11-29 07:36 | NUR ---
WASTE WATER PLANT OPERATOR OPENING NOTES RECEIVED PATIENT IN BED, AWAKE, A/O X4. PATIENT ON HIGH FLOW OXYGEN AT 60L FIO2 100%; BREATHING EVEN AT THIS TIME. NO COMPLAINS OF PAIN. R HAND IV ACCESS G # 22 PRESENT AND INTACT INFUSING 1/2 NS @ 75 MLS/HR. DEMARCO CATH IN PLACE DRAINING YELLOW URINE. SAFETY PRECAUTIONS IN PLACE; BED IN LOW POSITION AND LOCKED, RAILS UP X2, CALL LIGHT WITHIN REACH. WILL CONTINUE TO MONITOR PATIENT.
[2020-11-29] MEDS: BLOOD SUGAR DIAGNOSTIC 1 EACH STRIP IN SCH ×4 (07:55→23:17)
[2020-11-29 08:52] LABS: CALCIUM, SERUM 6.8 mg/dL (8.5-10.1); CREATININE 1.7 mg/dL (0.6-1.3); POTASSIUM 3.7 mmol/L (3.5-5.1)
[2020-11-29] MEDS: ASPIRIN 81 MG TAB.CHEW PO SCH (09:00)
[2020-11-29] MEDS: HEPARIN SODIUM, PORCINE 5000 UNITS/1 ML VIAL SQ SCH ×2 (09:00→21:00)
[2020-11-29] MEDS: PANTOPRAZOLE 40 MG VIAL IV SCH ×2 (09:04→16:10)
[2020-11-29] MEDS: DEXAMETHASONE SOD PHOSPHATE 10 MG/ML VIAL IV SCH (09:04)
[2020-11-29] MEDS: HYDROCORTISONE SOD SUCCINATE 100 MG/2 ML VIAL IV SCH ×2 (09:05→23:17)
[2020-11-29] MEDS: SOD FERRIC GLUC 125 MG in IV NS 0.9% 100 ML IV SCH (14:31)
[2020-11-30] VITALS: BP 153/80
[2020-11-30 04:00] VITALS: BP 110/90
--- NOTE | 2020-11-30 05:30 | NUR ---
pt titrated down by resp therapist to 100 liters on 70% hiflow oygen via nc. patient still saturationg at 97 percent will cont to monitor.
--- NOTE | 2020-11-30 07:30 | NUR ---
TELE/RN OPENING NOTE Received patient resting in bed, A&O x 4. No complaints of pain/discomfort at this time. Breathing even and non-labored on high flow 60 L Fio2 70%, saturating at 90%. No cardiac distress noted, on tele monitor reading SR 87. IV access noted on R hand 22, patent and intact, and running 1/2 NS @75 ml/hr. Borden in place, draining clear yellow urine well. Bed locked to its lowest position, side rails x 2 up, call light in hand. Will continue with current medical management.
[2020-11-30] MEDS: INSULIN REGULAR, HUMAN 100 UNIT/ML 3 ML VIAL SQ PRN ×4 (07:58→22:00)
[2020-11-30] MEDS: BLOOD SUGAR DIAGNOSTIC 1 EACH STRIP IN SCH ×4 (07:58→21:55)
[2020-11-30 08:00] VITALS: BP 141/84
[2020-11-30] MEDS: PANTOPRAZOLE 40 MG VIAL IV SCH ×2 (08:28→17:12)
[2020-11-30] MEDS: DEXAMETHASONE SOD PHOSPHATE 10 MG/ML VIAL IV SCH (08:28)
[2020-11-30] MEDS: ASPIRIN 81 MG TAB.CHEW PO SCH (08:28)
[2020-11-30] MEDS: HYDROCORTISONE SOD SUCCINATE 100 MG/2 ML VIAL IV SCH ×2 (08:28→20:33)
[2020-11-30] MEDS: HEPARIN SODIUM, PORCINE 5000 UNITS/1 ML VIAL SQ SCH ×2 (08:28→21:00)
[2020-11-30 10:19] LABS: CALCIUM, SERUM 6.7 mg/dL (8.5-10.1); CREATININE 1.5 mg/dL (0.6-1.3); POTASSIUM 3.8 mmol/L (3.5-5.1)
[2020-11-30 10:45] LABS: EOSINOPHILS % (AUTO) 0.1 % (0.0-6.0); HEMOGLOBIN 9.2 g/dL (13.5-17.5); PLATELET COUNT (AUTO) 202 /CMM (150-450)
[2020-11-30 11:05] LABS: HEMATOCRIT 27 % (39-51); LYMPHOCYTES # (AUTO) 0.4 /CMM (0.8-4.8); LYMPHOCYTES % (AUTO) 4.2 % (20.0-44.0); MEAN CORPUSCULAR HGB CONC 34 g/dl (31.0-36.0); MEAN CORPUSCULAR VOLUME 93 fL (80-96); MONOCYTES # (AUTO) 0.4 /CMM (0.1-1.30); MONOCYTES % (AUTO) 3.5 % (2.0-12.0); NEUTROPHILS # (AUTO) 9.3 /CMM (1.8-8.9); NEUTROPHILS % (AUTO) 92.2 % (43.0-81.0); RED BLOOD CELL COUNT(AUTO) 2.88 MIL/uL (4.5-6.0)
[2020-11-30] MEDS: IV 1/2NS 1000 ML 1,000 ML IV PRN (17:12)
--- NOTE | 2020-11-30 19:00 | NUR ---
TELE/RN CLOSING NOTE Patient in awake in bed, A&O x 4. No complaints of pain/discomfort throughout shift. Breathing even and non-labored on high flow 50 L Fio2 70%, saturating at 95%. No cardiac distress noted, on tele monitor reading SR 82. IV access noted on R hand 22, patent and intact, and running 1/2 NS @75 ml/hr. Borden in place, draining clear yellow urine well. Fall precautions maintained. Will endorse to rn night nurse.
--- NOTE | 2020-11-30 19:30 | NUR ---
WIND FARM SUPPORT SPECIALIST NOTES PATIENT IN BED, RESTING, ALERT AND ORIENTED X 4. BREATHING EVEN AND UNLABORED ON HIGH FLOW NASAL CANNULA 50L. SHOWS NO SIGNS OF ACUTE RESPIRATORY DISTRESS, NO ACUTE PAIN. TELE SR. FC INTACT AND IN PLACE. R HAND 22G 1/2 NS AT 75ML/HR. SHOWS NO SIGNS OF INFILTRATION, NO REDNESS. SAFETY PRECAUTIONS IN PLACE. BED IN LOWEST POSITION, LOCKED, AND CALL LIGHT KEPT WITHIN REACH. WILL CONTINUE TO MONITOR.
[2020-11-30 20:00] VITALS: BP 144/89
[2020-11-30 21:19] VITALS: BP 144/89
[2020-12-01] VITALS: BP 142/89
[2020-12-01] MEDS: IV 1/2NS 1000 ML 1,000 ML IV PRN (04:25)
[2020-12-01] MEDS: BLOOD SUGAR DIAGNOSTIC 1 EACH STRIP IN SCH ×4 (06:30→22:27)
[2020-12-01] MEDS: INSULIN REGULAR, HUMAN 100 UNIT/ML 3 ML VIAL SQ PRN ×3 (06:34→17:31)
[2020-12-01 06:40] VITALS: BP 142/80
--- NOTE | 2020-12-01 06:55 | NUR ---
CHIEF REVENUE OFFICER NOTES PATIENT IN BED, RESTING, ALERT AND ORIENTED X 4. BREATHING EVEN AND UNLABORED ON HIGH FLOW NASAL CANNULA 60L. SHOWS NO SIGNS OF ACUTE RESPIRATORY DISTRESS, NO ACUTE PAIN. TELE SR. FC INTACT AND IN PLACE FLOWING YELLOW URINE. R HAND 22G 1/2 NS AT 75ML/HR. SHOWS NO SIGNS OF INFILTRATION, NO REDNESS. ALL DUE MEDICATIONS GIVEN. ALL NEEDS ATTENDED TO. SAFETY PRECAUTIONS IN PLACE. BED IN LOWEST POSITION, LOCKED, AND CALL LIGHT KEPT WITHIN REACH. WILL ENDORSE TO ONCOMING NURSE.
--- NOTE | 2020-12-01 07:30 | NUR ---
TELE/RN OPENING NOTE Received patient resting in bed, A&O x 4. No complaints of pain/discomfort at this time. Breathing even and non-labored on high flow 60 L Fio2 100%, saturating at 92%. No cardiac distress noted, on tele monitor reading SR 83. IV access noted on R hand 22, patent and intact, and running 1/2 NS @75 ml/hr. Borden in place, draining clear yellow urine well. Bed locked to its lowest position, side rails x 2 up, call light in hand. Will continue with current medical management.
[2020-12-01 07:59] LABS: BASOPHILS % (AUTO) 0.1 % (0.0-2.0); EOSINOPHILS % (AUTO) 0.1 % (0.0-6.0); HEMATOCRIT 25 % (39-51); HEMOGLOBIN 8.9 g/dL (13.5-17.5); LYMPHOCYTES # (AUTO) 0.4 /CMM (0.8-4.8); MEAN CORPUSCULAR HGB CONC 35 g/dl (31.0-36.0); MEAN CORPUSCULAR VOLUME 90 fL (80-96); MONOCYTES # (AUTO) 0.3 /CMM (0.1-1.30); MONOCYTES % (AUTO) 3.5 % (2.0-12.0); NEUTROPHILS # (AUTO) 9.1 /CMM (1.8-8.9); NEUTROPHILS % (AUTO) 92.3 % (43.0-81.0); PLATELET COUNT (AUTO) 202 /CMM (150-450); RED BLOOD CELL COUNT(AUTO) 2.81 MIL/uL (4.5-6.0); WHITE BLOOD COUNT (AUTO) 9.8 K/uL (4.3-11.0)
[2020-12-01 08:00] VITALS: BP 137/85
[2020-12-01] MEDS: HYDROCORTISONE SOD SUCCINATE 100 MG/2 ML VIAL IV SCH ×2 (08:18→21:26)
[2020-12-01] MEDS: HEPARIN SODIUM, PORCINE 5000 UNITS/1 ML VIAL SQ SCH ×2 (08:18→21:27)
[2020-12-01] MEDS: DEXAMETHASONE SOD PHOSPHATE 10 MG/ML VIAL IV SCH (08:18)
[2020-12-01] MEDS: PANTOPRAZOLE 40 MG VIAL IV SCH ×2 (08:18→17:29)
[2020-12-01 08:19] LABS: BILIRUBIN,TOTAL 0.7 mg/dL (0.2-1.0); CALCIUM, SERUM 6.6 mg/dL (8.5-10.1); CREATININE 1.6 mg/dL (0.6-1.3); MAGNESIUM 1.5 mg/dL (1.8-2.4); PHOSPHORUS 2.9 mg/dL (2.5-4.9); POTASSIUM 3.6 mmol/L (3.5-5.1)
[2020-12-01] MEDS: ASPIRIN 81 MG TAB.CHEW PO SCH (08:19)
--- NOTE | 2020-12-01 09:00 | NUR ---
TELE/RN NOTE Infiltrated IV noted on R hand #22, removed IV access with catheter intact, placed pressure with dry dressing and tape. Elevated arm to heart level. Sravanthi CHAPMAN inserted a new IV access on L hand #22g, blood return noted, patent and intact, and flushing well. Addendum: 12/01/20 at 1936 by KATRIN JONES RN Patient is hard stick, notified and nursing supervisor public message service for midline access insertion.
[2020-12-01] MEDS ORDERED: Magnesium 1GM/D5W 100ML PREMIX 100 ML IV SCH (10:30)
[2020-12-01 11:56] VITALS: BP 132/76
--- NOTE | 2020-12-01 15:00 | NUR ---
MS/RN NOTE Midline nurse arrived, inserted midline in GENOVEVA, #18g, patent and intact, and flushing well.
[2020-12-01 16:43] VITALS: BP 141/93
--- NOTE | 2020-12-01 19:00 | NUR ---
TELE/RN CLOSING NOTE Patient awake in bed, A&O x 4. No complaints of pain/discomfort throughout shift. Breathing even and non-labored on high flow 60 L Fio2 100%, saturating at 94-97%. No cardiac distress noted, on tele monitor reading SR 82. IV access noted on L hand #22, and GENOVEVA midline #18. running 1/2 NS @75 ml/hr. Borden in place, draining clear yellow urine well. Fall precautions maintained. Will endorse to shift leader nurse.
--- NOTE | 2020-12-01 19:30 | NUR ---
TELE/RN NOTES RECEIVED PATIENT IN BED RESTING. PATIENT IS ALERT AND ORIENTED X 3. STATES NO PAIN AT THIS TIME. PATIENTS BREATHING IS EVEN AND UNLABORED. NO SIGNS OF RESPIRATORY DISTRESS NOTED. PATIENT HAD IV ACCESS ON RIGHT UA MIDLINE RUNNING 1/2 NS AT 75 ML/HR. SAFETY MEASURES ARE IN PLACE, BED IS LOCKED AND PLACED IN THE LOWEST POSITION, CALL LIGHT IS WITHIN REACH. WILL CONTINUE TO MONITOR THROUGH OUT SHIFT.
[2020-12-01 20:16] VITALS: BP 130/54
[2020-12-02 01:31] VITALS: BP 133/83
[2020-12-02 04:56] VITALS: BP 117/73
[2020-12-02] MEDS: IV 1/2NS 1000 ML 1,000 ML IV PRN (05:14)
[2020-12-02 06:25] LABS: BASOPHILS % (AUTO) 0.1 % (0.0-2.0); EOSINOPHILS % (AUTO) 0.2 % (0.0-6.0); HEMATOCRIT 26 % (39-51); LYMPHOCYTES # (AUTO) 0.4 /CMM (0.8-4.8); LYMPHOCYTES % (AUTO) 4.2 % (20.0-44.0); MEAN CORPUSCULAR HGB CONC 35 g/dl (31.0-36.0); MEAN CORPUSCULAR VOLUME 90 fL (80-96); MONOCYTES # (AUTO) 0.3 /CMM (0.1-1.30); MONOCYTES % (AUTO) 3.2 % (2.0-12.0); NEUTROPHILS # (AUTO) 8.7 /CMM (1.8-8.9); NEUTROPHILS % (AUTO) 92.3 % (43.0-81.0); PLATELET COUNT (AUTO) 195 /CMM (150-450); RED BLOOD CELL COUNT(AUTO) 2.87 MIL/uL (4.5-6.0); WHITE BLOOD COUNT (AUTO) 9.4 K/uL (4.3-11.0)
[2020-12-02] MEDS: BLOOD SUGAR DIAGNOSTIC 1 EACH STRIP IN SCH ×4 (06:43→22:16)
--- NOTE | 2020-12-02 07:00 | NUR ---
TELE/RN CLOSING NOTES PATIENT IN BED RESTING. PATIENT IS ALERT AND ORIENTED X 3. PATIENTS BREATHING IS EVEN AND UNLABORED. NO SIGNS OF RESPIRATORY DISTRESS NOTED. PATIENT HAD IV ACCESS ON RIGHT UA MIDLINE RUNNING 1/2 NS AT 75 ML/HR. PATIENT ON HIGH FLOW AT 60L STAT AT 93-96%. ALL PATIENT NEEDS HAVE BEEN DURING SHIFT. SAFETY MEASURES ARE IN PLACE, BED IS LOCKED AND PLACED IN THE LOWEST POSITION, CALL LIGHT IS WITHIN REACH. WILL ENDORSE CARE TO DAY SHIFT NURSE.
[2020-12-02 07:16] LABS: CALCIUM, SERUM 6.9 mg/dL (8.5-10.1); CREATININE 1.5 mg/dL (0.6-1.3); MAGNESIUM 1.7 mg/dL (1.8-2.4); PHOSPHORUS 3.1 mg/dL (2.5-4.9); POTASSIUM 3.7 mmol/L (3.5-5.1)
--- NOTE | 2020-12-02 07:39 | NUR ---
OPEN NOTES PATIENT IS IN BED A/O X 4 ON HIGH FLOW 60L FIO2 100% SPO2 90-97% WITH NO SIGNS OF DISTRESS. L HAND #22G AND R UA MIDLINE. ON TELE MONITOR SR 80. DEMARCO CATH INTACT. NO COMPLAIN OF PAIN AT THIS TIME. SAFETY MEASURES ARE APPLIED BED IS IN THE LOWEST POSITION SIDE RAILS UP X 2. CALL LIGHT WITHIN REACH WILL CONTINUE TO MONITOR.
[2020-12-02 08:00] VITALS: BP 151/89
[2020-12-02] MEDS: PANTOPRAZOLE 40 MG VIAL IV SCH ×2 (08:12→16:40)
[2020-12-02] MEDS: ASPIRIN 81 MG TAB.CHEW PO SCH (08:12)
[2020-12-02] MEDS: DEXAMETHASONE SOD PHOSPHATE 10 MG/ML VIAL IV SCH (08:12)
[2020-12-02] MEDS: HYDROCORTISONE SOD SUCCINATE 100 MG/2 ML VIAL IV SCH ×2 (08:12→20:08)
[2020-12-02] MEDS: HEPARIN SODIUM, PORCINE 5000 UNITS/1 ML VIAL SQ SCH (08:23)
[2020-12-02] MEDS ORDERED: Magnesium 1GM/D5W 100ML PREMIX 100 ML IV SCH (11:30)
[2020-12-02 12:00] VITALS: BP 126/89
[2020-12-02] MEDS: INSULIN REGULAR, HUMAN 100 UNIT/ML 3 ML VIAL SQ PRN ×2 (12:19→16:43)
[2020-12-02 16:00] VITALS: BP 140/83
--- NOTE | 2020-12-02 18:53 | NUR ---
CLOSING NOTES PATIENT IS IN BED A/O X 4 ON HIGH FLOW 60L FIO2 100% SPO2 90-97% WITH NO SIGNS OF DISTRESS. L HAND #22G AND R UA MIDLINE. ON TELE MONITOR SR. DEMARCO CATH INTACT. NO COMPLAIN OF PAIN AT THIS TIME.PATIENT KEPT CLEAN AND DRY. ALL NEEDS, CARE, TREATMENT, AND MEDICATIONS WERE ADMINISTERED ANTICIPATED PER ORDER. SAFETY MEASURES ARE APPLIED, BED IS IN LOW POSITION SIDE RAILS UP X 2. CALL LIGHT WITHIN REACH WILL ENDORSE TO THE SEISMIC PROSPECTING OBSERVER NURSE.
--- NOTE | 2020-12-02 19:30 | NUR ---
field project manager opening notes Received Pt from morning nurse. Pt is resting in bed comfortably. Pt is alert and orientedX4. Respiration on high flow 60 L fi02 100%. O2 sat is 94%. No SOB. No S/s of distress noted. IV site at L hand#22 is clean, intact and SL. GENOVEVA midline# 18 is clean, intact and infusing well 0.45%@75 ml/hr. Tele monitor showed SR Hr at 75 bpm. Safety precautions is maintained. Bed at low position, brakes locked, side rails upX2 and call light is within reach. Will continue to monitor.
[2020-12-02 20:00] VITALS: BP 130/91
--- NOTE | 2020-12-02 23:50 | NUR ---
spray drier operator notes Pt is complaining of sob. Pt is on high flow 60 L fio2 100% with O2 sat is 87%. Called RT Marco A. Marco A came and put on non rebreather mask 15 L with high flow. Pt O2 sat is 90%. Pt stated 'I feel better now." No SOB. No S/S of distress noted. Will continue to monitor.
[2020-12-03] VITALS (7 sets, daily range): BP systolic 111–152; BP diastolic 63–87
--- NOTE | 2020-12-03 06:33 | NUR ---
clam bed worker notes Noted Pt removed non rebreather mask several times. Educated and explained risks and benefits. Pt verbally understanding. No SOB. No S/S of distress noted. O2 sat is 90%. Will continue to monitor.
--- NOTE | 2020-12-03 06:50 | NUR ---
body straightener closing notes Pt is resting in bed comfortably. Pt is alert and orientedX4. Respiration on high flow 60 L fi02 100% and non rebreather mask 15 L. O2 sat is 90%. No SOB. No S/s of distress noted. IV site at L hand#22 is clean, intact and SL. GENOVEVA midline# 18 is clean, intact and SL. Tele monitor showed S tachy Hr at 116 bpm. Borden cath is intact and draining yellow urine 500 ml. Routine meds were given as ordered. Kept Pt clean, dry and comfortable. All needs met and attended. Safety precautions is maintained. Bed at low position, brakes locked, side rails upX2 and call light is within reach. Will endorse to morning nurse for EMMANUEL.
[2020-12-03] MEDS: BLOOD SUGAR DIAGNOSTIC 1 EACH STRIP IN SCH ×4 (07:02→22:33)
[2020-12-03] MEDS: INSULIN REGULAR, HUMAN 100 UNIT/ML 3 ML VIAL SQ PRN ×3 (07:02→17:41)
--- NOTE | 2020-12-03 07:15 | NUR ---
TELE/RN OPENING NOTES PATIENT RECEIVED IN BED ON SIDE LYING POSITION. A/O X4. AFEBRILE. RESPIRATION ON HIGH FLOW 60 L. NON REBREATHER MASK. SA02 87-89%. IN NO APPARENT DISTRESS. ON DEMARCO, INTACT, DRAINING WELL. L HAND #22 G SL AND GENOVEVA MIDLINE #18. PROVIDED SAFETY MEASURES. BED IN LOWEST POSITION, LOCKED. SIDE RAILS UP X 2. CALL LIGHT WITHIN REACH. WILL CONTINUE PLAN OF CARE.
[2020-12-03 07:22] LABS: BASOPHILS % (AUTO) 0.2 % (0.0-2.0); EOSINOPHILS % (AUTO) 0.9 % (0.0-6.0); HEMATOCRIT 29 % (39-51); HEMOGLOBIN 10.1 g/dL (13.5-17.5); LYMPHOCYTES # (AUTO) 0.5 /CMM (0.8-4.8); LYMPHOCYTES % (AUTO) 4.8 % (20.0-44.0); MEAN CORPUSCULAR HGB CONC 35 g/dl (31.0-36.0); MEAN CORPUSCULAR VOLUME 90 fL (80-96); MONOCYTES # (AUTO) 0.4 /CMM (0.1-1.30); MONOCYTES % (AUTO) 3.6 % (2.0-12.0); NEUTROPHILS # (AUTO) 9.3 /CMM (1.8-8.9); NEUTROPHILS % (AUTO) 90.5 % (43.0-81.0); PLATELET COUNT (AUTO) 216 /CMM (150-450); RED BLOOD CELL COUNT(AUTO) 3.23 MIL/uL (4.5-6.0); WHITE BLOOD COUNT (AUTO) 10.3 K/uL (4.3-11.0)
[2020-12-03 07:28] LABS: CALCIUM, SERUM 7.5 mg/dL (8.5-10.1); CREATININE 1.5 mg/dL (0.6-1.3); POTASSIUM 3.3 mmol/L (3.5-5.1)
[2020-12-03] MEDS: ASPIRIN 81 MG TAB.CHEW PO SCH (08:12)
[2020-12-03] MEDS: HYDROCORTISONE SOD SUCCINATE 100 MG/2 ML VIAL IV SCH ×2 (08:13→22:29)
[2020-12-03] MEDS: PANTOPRAZOLE 40 MG VIAL IV SCH ×2 (08:14→16:43)
[2020-12-03] MEDS ORDERED: FUROSEMIDE 40 MG/4 ML VIAL IV ONE (09:00)
[2020-12-03] MEDS ORDERED: POTASSIUM CHLORIDE 10 MEQ TABLET.SA PO ONE (11:00)
[2020-12-03 11:24] LABS: ABG OXYGEN SATURATION 95.8 % (92.0-98.5); ABG PCO2 26.2 mmHg (35.0-45.0); ABG PH 7.484 (7.350-7.450); ABG PO2 77.3 mmHg (75.0-100.0); AaDO2 609.5 mmHg; COHb 0.3 % (0.5-1.5); MetHb 0.1 % (0.0-1.5); O2Hb 95.4 % (94.0-97.0); SITE, ABG Left Radial; VENT MODE, BG HFNC 60L/100% + NRB 15L
[2020-12-03] MEDS: POTASSIUM CHLORIDE 20 MEQ TAB.PRT.SR PO SCH ×3 (11:33→13:14)
--- NOTE | 2020-12-03 19:36 | NUR ---
TELE/RN CLOSING NOTES PATIENT RESTING BED COMFORTABLY. A/O X4. AFEBRILE. IN NO APPARENT DISTRESS. ON HIGH FLOW O2 FI02 100 % WITH NON REBREATHER MASK. DEMARCO CATHETER, INTACT, DRAINING IN YELLOW URINE. L HAND @22 SL, GENOVEVA MIDLINE #18G. ROUTINE MEDS WERE GIVEN. SAFETY MEASURES MAINTAINED. BED IN LOWEST POSITION, LOCKED. SIDE RAILS UP X2. CALL LIGHT WITHIN REACH. WILL ENDORSE TO LOCOMOTIVE FIRER FOR EMMANUEL.
--- NOTE | 2020-12-03 20:00 | NUR ---
LAND MANAGER NOTE OPENING PATIENT IN BED. PT IS SR ON TELE MONITORING A/O X4. AFEBRILE. IN NO APPARENT DISTRESS. ON HIGH FLOW O2 FI02 100 % WITH NON REBREATHER MASK AT 15 LNC SATURATING AT 94%. DEMARCO CATHETER DRAINING IN YELLOW URINE. L HAND @22 SL, GENOVEVA MIDLINE #18G FLUSHED AND BOTH PATENT. PT ON CONTINUOUS SPO2 MONITOR. IVS ARE HEPLOCKED. BED IN LOWEST POSITION, LOCKED. SIDE RAILS UP X2. CALL LIGHT WITHIN REACH. PT VERBALIZED UNDERSTANDING TO CALL FOR ASSISTANCE IF NEEDED.
[2020-12-04] VITALS: BP 120/74
[2020-12-04] MEDS: BLOOD SUGAR DIAGNOSTIC 1 EACH STRIP IN SCH ×4 (07:00→22:57)
[2020-12-04] MEDS: INSULIN REGULAR, HUMAN 100 UNIT/ML 3 ML VIAL SQ PRN ×4 (07:01→22:57)
[2020-12-04 07:50] LABS: BASOPHILS % (AUTO) 0.1 % (0.0-2.0); EOSINOPHILS % (AUTO) 0.1 % (0.0-6.0); HEMATOCRIT 26 % (39-51); LYMPHOCYTES # (AUTO) 0.3 /CMM (0.8-4.8); LYMPHOCYTES % (AUTO) 3.4 % (20.0-44.0); MEAN CORPUSCULAR HGB CONC 35 g/dl (31.0-36.0); MEAN CORPUSCULAR VOLUME 92 fL (80-96); MONOCYTES # (AUTO) 0.3 /CMM (0.1-1.30); NEUTROPHILS # (AUTO) 8.3 /CMM (1.8-8.9); NEUTROPHILS % (AUTO) 93.4 % (43.0-81.0); PLATELET COUNT (AUTO) 181 /CMM (150-450); RED BLOOD CELL COUNT(AUTO) 2.84 MIL/uL (4.5-6.0); WHITE BLOOD COUNT (AUTO) 8.9 K/uL (4.3-11.0)
--- NOTE | 2020-12-04 07:55 | NUR ---
MANAGER DIESEL OPENING NOTE PATIENT IS IN BED RESTING. PATIENT IS IN NO ACUTE DISTRESS. NO SOB NOTED. PATIENT IS ON HIGH FLOW 60L AND NON-REBREATHER MASK AT 15L. PATIENT IS ON BUSINESS OBJECTS READING SR 87. SAFETY PRECAUTIONS ARE IN PLACE. BED IS LOCKED AND IN THE LOWEST POSITION. SIDE RAILS ARE UP CALL LIGHT WITHIN REACH. WILL CONTINUE TO MONITOR CLOSELY THROUGH OUT THE SHIFT.
[2020-12-04 07:58] LABS: CALCIUM, SERUM 7.5 mg/dL (8.5-10.1); CREATININE 1.6 mg/dL (0.6-1.3); MAGNESIUM 1.6 mg/dL (1.8-2.4); PHOSPHORUS 3.4 mg/dL (2.5-4.9); POTASSIUM 3.9 mmol/L (3.5-5.1)
[2020-12-04 08:00] VITALS: BP 145/85
[2020-12-04] MEDS: HYDROCORTISONE SOD SUCCINATE 100 MG/2 ML VIAL IV SCH (08:55)
[2020-12-04] MEDS: ASPIRIN 81 MG TAB.CHEW PO SCH (08:55)
[2020-12-04] MEDS: PANTOPRAZOLE 40 MG VIAL IV SCH ×2 (08:55→16:55)
[2020-12-04] MEDS ORDERED: FUROSEMIDE 40 MG/4 ML VIAL IV ONE (10:30)
[2020-12-04] MEDS ORDERED: Magnesium 1GM/D5W 100ML PREMIX 100 ML IV SCH (11:00)
[2020-12-04 12:00] VITALS: BP 124/75
[2020-12-04 16:00] VITALS: BP 117/75
--- NOTE | 2020-12-04 19:28 | NUR ---
SHIPPING HELPER CLOSING NOTE PATIENT IS IN BED RESTING. PATIENT IS ON HIGH FLOW ON 60L. TOLERATING WELL. NO SOB NOTED. PATIENT KEPT CLEAN DRY AND COMFORTABLE THROUGH OUT THE SHIFT. NO SIGNS ON DISTRESS NOTED. SAFETY PRECAUTIONS ARE IN PLACE. BED IN THE LOWEST POSITION, WITH BREAK ON. SIDE RAILS ARE UP, CALL LIGHT WITHIN REACH. ENDORSE PATIENT TO THE FINANCIAL AID MANAGER NURSE FOR EMMANUEL.
[2020-12-04 20:00] VITALS: BP 143/80
--- NOTE | 2020-12-04 20:27 | NUR ---
SAMPLE CARD MAKER OPENING NOTES PATIENT IN BED; A/O X4 WITH CONFUSION; ABLE TO MAKE NEEDS KNOWN. EXTERNAL CARDIAC MONITORING READS SR HR AT 80. ON HIGHFLOW 60LPM AND NRB 15LPM, TOLERATING WELL WITH NO SOB NOTED. NO S/S OF PAIN OR DISCOMFORT AT THIS TIME. GENOVEVA MIDLINE #18 PATENT AND INTACT. IV #22 ON L HAND; PATENT AND INTACT. DEMARCO CATHETER PATENT AND INTACT; DRAINING CLEAR YELLOW URINE BY GRAVITY. SAFETY MEASURES IN PLACE: BED IN LOWEST LOCK POSITION, SIDE RAILS UP X2, CALL LIGHT WITHIN REACH, BED ALARMS ON. WILL CONTINUE TO MONITOR.
[2020-12-05] VITALS: BP_SYST 130; BP_SYST 143; BP_DIAS 78; BP_DIAS 81
[2020-12-05 04:00] VITALS: BP 138/76
[2020-12-05 05:57] LABS: BASOPHILS % (AUTO) 0.1 % (0.0-2.0); EOSINOPHILS % (AUTO) 0.7 % (0.0-6.0); HEMATOCRIT 28 % (39-51); HEMOGLOBIN 9.6 g/dL (13.5-17.5); LYMPHOCYTES # (AUTO) 0.4 /CMM (0.8-4.8); MEAN CORPUSCULAR HGB CONC 35 g/dl (31.0-36.0); MEAN CORPUSCULAR VOLUME 91 fL (80-96); MONOCYTES # (AUTO) 0.4 /CMM (0.1-1.30); MONOCYTES % (AUTO) 3.7 % (2.0-12.0); NEUTROPHILS # (AUTO) 8.9 /CMM (1.8-8.9); NEUTROPHILS % (AUTO) 91.5 % (43.0-81.0); PLATELET COUNT (AUTO) 201 /CMM (150-450); RED BLOOD CELL COUNT(AUTO) 3.03 MIL/uL (4.5-6.0); WHITE BLOOD COUNT (AUTO) 9.8 K/uL (4.3-11.0)
[2020-12-05 06:21] LABS: CREATININE 1.6 mg/dL (0.6-1.3); MAGNESIUM 1.7 mg/dL (1.8-2.4); POTASSIUM 3.3 mmol/L (3.5-5.1)
[2020-12-05] MEDS: BLOOD SUGAR DIAGNOSTIC 1 EACH STRIP IN SCH ×3 (06:59→17:17)
--- NOTE | 2020-12-05 07:41 | NUR ---
SHIP ERECTOR CLOSING NOTES PATIENT IN BED; A/O X4 WITH CONFUSION; ABLE TO MAKE NEEDS KNOWN. EXTERNAL CARDIAC MONITORING READS SR. ON HIGHFLOW 60LPM AND NRB 15LPM, TOLERATING WELL WITH NO SOB NOTED. GENOVEVA MIDLINE #18 PATENT AND INTACT. IV #22 ON L HAND; PATENT AND INTACT. DEMARCO CATHETER PATENT AND INTACT; DRAINING CLEAR YELLOW URINE BY GRAVITY. SAFETY MEASURES IN PLACE: BED IN LOWEST LOCK POSITION, SIDE RAILS UP X2, CALL LIGHT WITHIN REACH, BED ALARMS ON. ENDORSED EMMANUEL TO ONCOMING MORNING RN
--- NOTE | 2020-12-05 07:56 | NUR ---
OPTICAL MODEL MAKER AND TESTER OPENING NOTES RECEIVED PATIENT IN BED, AWAKE, A/O X4. PATIENT ON HIGH FLOW 60LPM AND NRB 15LPM, TOLERATING WELL WITH NO SOB NOTED. GENOVEVA MIDLINE #18 PATENT AND INTACT. IV #22 ON L HAND; PATENT AND INTACT. DEMARCO CATHETER IN PLACE; DRAINING CLEAR YELLOW URINE BY GRAVITY. SAFETY PRECAUTIONS IN PLACE; BED IN LOW POSITION AND LOCKED, RAILS UP X2, CALL LIGHT WITHIN REACH. WILL CONTINUE TO MONITOR PATIENT.
[2020-12-05 08:00] VITALS: BP 141/73
[2020-12-05] MEDS ORDERED: Magnesium 1GM/D5W 100ML PREMIX 100 ML IV SCH (08:29)
[2020-12-05] MEDS: POTASSIUM CHLORIDE 20 MEQ TAB.PRT.SR PO SCH ×2 (08:31→10:15)
[2020-12-05] MEDS: HYDROCORTISONE SOD SUCCINATE 100 MG/2 ML VIAL IV SCH (08:31)
[2020-12-05] MEDS: ASPIRIN 81 MG TAB.CHEW PO SCH (08:31)
[2020-12-05] MEDS: PANTOPRAZOLE 40 MG VIAL IV SCH ×2 (08:31→16:12)
[2020-12-05 12:18] VITALS: BP 151/77
[2020-12-05 18:11] VITALS: BP 147/83
--- NOTE | 2020-12-05 18:48 | NUR ---
NET C DEVELOPER CLOSING NOTES PATIENT REMAINS IN BED, AWAKE, A/O X4. PATIENT ON HIGH FLOW 60LPM AND NRB 15LPM, HAS SOME DIFFICULTY BREATHING; SATURATING 88-89% RT AT BEDSIDE. GENOVEVA MIDLINE #18 PATENT AND INTACT. IV #22 ON L HAND; PATENT AND INTACT. DEMARCO CATHETER IN PLACE; DRAINING CLEAR YELLOW URINE BY GRAVITY WITH DAILY OUTPUT OF 700 MLS. ALL NEEDS ATTENDED THROUGHOUT THE DAY. SAFETY PRECAUTIONS IN PLACE; BED IN LOW POSITION AND LOCKED, RAILS UP X2, CALL LIGHT WITHIN REACH. WILL ENDORSE TO JAVA TECHNICAL MANAGER NURSE.
--- NOTE | 2020-12-05 19:36 | NUR ---
SOYBEAN GROWER OPENING NOTES PATIENT IN BED; A/O X4 WITH CONFUSION; ABLE TO MAKE NEEDS KNOWN. EXTERNAL CARDIAC MONITORING READS SR. ON O2 HIGHFLOW 60LPM AND NRB 15LPM, WITH SOB NOTED. NO S/S OF PAIN OR DISCOMFORT AT THIS TIME. GENOVEVA MIDLINE #18 PATENT AND INTACT. IV #22 ON L HAND; PATENT AND INTACT. DEMARCO CATHETER PATENT AND INTACT; DRAINING CLEAR YELLOW URINE BY GRAVITY. SAFETY MEASURES IN PLACE: BED IN LOWEST LOCK POSITION, SIDE RAILS UP X2, CALL LIGHT WITHIN REACH, BED ALARMS ON. WILL CONTINUE TO MONITOR.
[2020-12-05 20:07] VITALS: BP 147/91
[2020-12-05] MEDS ORDERED: ALBUTEROL SULFATE INH 18 GM HFA.AER.AD IH PRN (22:30)
[2020-12-05 22:32] LABS: ABG BASE EXCESS -3.2 mmol/L; ABG OXYGEN SATURATION 79.2 % (92.0-98.5); ABG PCO2 25.8 mmHg (35.0-45.0); ABG PH 7.486 (7.350-7.450); AaDO2 646.2 mmHg; COHb 0.4 % (0.5-1.5); MetHb 0.3 % (0.0-1.5); O2Hb 78.6 % (94.0-97.0); SITE, ABG Right Radial
[2020-12-05] MEDS ORDERED: SUCCINYLCHOLINE CHLORIDE 20 MG/ML VIAL IV ONE (23:30)
[2020-12-05] MEDS ORDERED: ETOMIDATE 2 MG/ML VIAL IV ONE (23:30)
--- NOTE | 2020-12-05 23:40 | NUR ---
RT NOTES PT ORALLY INTUBATED BY MD WITH 7.5 ETT SECURED AT 25CM AT THE LIP LINE. PT PLACED ON [facility] VENT PER MD ORDERS ON SETTINGS AC MODE, RATE 20, FIO2 100%, PEEP +10. EQUAL CHEST RISE NOTED, MIST IN TUBE NOTED. SVP DIGITAL SALES DONE. SUCTIONED SMALL AMOUNT OF PINK TINGE SECRETIONS. ALARMS SET AND AUDIBLE. AMBUBAG AT BEDSIDE. VENT PLUGGED INTO RED OUTLET. WILL CONT TO MONITOR CLOSELY. Addendum: 12/06/20 at 0032 by JAIRON VENCES RT Amended: Links added.
--- NOTE | 2020-12-05 23:46 | NUR ---
RN NOTES - TRANSFER PATIENT ON HIGH FLOW 60L FIO2 100% AND 15LPM VIA NRB; PATIENT SOB RR 30; O2SAT 78-85%. PATIENT A/O X4; RESPONSIVE; COMPLAINS OF "CANT BREATHE" AND CHEST PAIN. NOTIFIED DR. GRACIA; GOT ORDER FOR ABG STAT, INTUBATION, ALBUTEROL INHALER, AND TRANSFER TO ICU. INFORMED PATIENT THAT HE WILL BE INTUBATED TO HELP HIM BREATH AND HE VERBALLY AGREED. SHANIQUE CHARGE NURSE AWARE. RN GAVE REPORT TO VAL CHAPMAN. TRANSFERRED PATIENT TO ICU.
[2020-12-05] MEDS ORDERED: PROPOFOL 100 ML ONE (23:49)
[2020-12-05] MEDS ORDERED: MIDAZOLAM HCL 2 MG/2ML VIAL ONE (23:50)
[2020-12-06] VITALS (77 sets, daily range): BP systolic 65–178; BP diastolic 39–90
[2020-12-06] MEDS ORDERED: MIDAZOLAM HCL 5 MG/5ML VIAL IV ONE
[2020-12-06] MEDS ORDERED: PROPOFOL 100 ML IV PRN
[2020-12-06] MEDS: PROPOFOL 100 ML IV PRN ×6 (00:48→21:08)
[2020-12-06] MEDS: IV NS 0.9% 250 ML IV PRN (00:50)
[2020-12-06] MEDS ORDERED: PHENYLEPHRINE 10 MG/ML VIAL ONE (00:57)
[2020-12-06] MEDS: PHENYLEPHRINE 50 MG in IV NS 0.9% 245 ML IV PRN ×2 (01:09→18:52)
[2020-12-06 01:39] LABS: ABG BASE EXCESS -5.9 mmol/L; ABG OXYGEN SATURATION 97.9 % (92.0-98.5); ABG PCO2 29.5 mmHg (35.0-45.0); ABG PH 7.401 (7.350-7.450); ABG PO2 119.3 mmHg (75.0-100.0); AaDO2 564.2 mmHg; COHb 0.2 % (0.5-1.5); MetHb 0.2 % (0.0-1.5); O2Hb 97.5 % (94.0-97.0); SITE, ABG Right Radial
--- NOTE | 2020-12-06 02:37 | NUR ---
agricultural equipment operator. transfer the pt from [facility] [place] for desaturation with high flow and nonrebreather. pt intubated by md bautista. ett 7.5,ac 20,lip 25,tv 500,fio2 100%,peep 5. sat 98%. no acute distress noted. diprivan started. fc patent. urine draining. gabbie soft wrist restraint checked and released, no injury or redness noted. will continue to monitor
[2020-12-06] MEDS ORDERED: ACETAMINOPHEN 650 MG/SUPP.RECT RC PRN (04:00)
[2020-12-06 05:18] LABS: BASOPHILS % (AUTO) 0.3 % (0.0-2.0); EOSINOPHILS % (AUTO) 0.4 % (0.0-6.0); HEMATOCRIT 28 % (39-51); HEMOGLOBIN 9.4 g/dL (13.5-17.5); LYMPHOCYTES # (AUTO) 0.8 /CMM (0.8-4.8); MEAN CORPUSCULAR HGB CONC 34 g/dl (31.0-36.0); MEAN CORPUSCULAR VOLUME 92 fL (80-96); MONOCYTES # (AUTO) 0.6 /CMM (0.1-1.30); MONOCYTES % (AUTO) 4.6 % (2.0-12.0); NEUTROPHILS # (AUTO) 11.5 /CMM (1.8-8.9); NEUTROPHILS % (AUTO) 88.7 % (43.0-81.0); PLATELET COUNT (AUTO) 258 /CMM (150-450); RED BLOOD CELL COUNT(AUTO) 3.01 MIL/uL (4.5-6.0)
[2020-12-06 05:47] LABS: MAGNESIUM 1.8 mg/dL (1.8-2.4); PHOSPHORUS 3.4 mg/dL (2.5-4.9); POTASSIUM 4.1 mmol/L (3.5-5.1)
--- NOTE | 2020-12-06 07:36 | NUR ---
agriculture science teacher. dip 70mcg/kg/min,to 1mcg/kg/min, temp 101. tylenol supp given.
--- NOTE | 2020-12-06 08:41 | NUR ---
received pt from night shift manager, s/p intubation s/t covid PNA, sedated on Diprivan at 80mcg, ST, on 100% fio2 sat 88 -90, lungs congested, no edema, NPO, f/c OK output, receiving to at 1 mcg, v/s stable, no pain, pt turned and repositioned.
[2020-12-06] MEDS: ASPIRIN 81 MG TAB.CHEW PO SCH (09:00)
[2020-12-06] MEDS: FUROSEMIDE 40 MG/4 ML VIAL IV SCH (09:05)
[2020-12-06] MEDS: PANTOPRAZOLE 40 MG VIAL IV SCH ×2 (09:06→17:20)
[2020-12-06] MEDS: HYDROCORTISONE SOD SUCCINATE 100 MG/2 ML VIAL IV SCH (09:06)
[2020-12-06 09:12] LABS: ABG BASE EXCESS -3.1 mmol/L; ABG OXYGEN SATURATION 87.1 % (92.0-98.5); ABG PCO2 38.1 mmHg (35.0-45.0); ABG PH 7.375 (7.350-7.450); ABG PO2 55.4 mmHg (75.0-100.0); AaDO2 619.5 mmHg; COHb 0.4 % (0.5-1.5); MetHb 0.4 % (0.0-1.5); O2Hb 86.4 % (94.0-97.0); SITE, ABG Left Radial; VENT MODE, BG AC 20 500 +8 100%
--- NOTE | 2020-12-06 17:05 | NUR ---
pt is resting in the bed, sedated on Diprivan at 100%, receiving to at 1mcg, on 80% fi02 and peep of 12, v/s stable, no pain, pt cleaned, changed and repositioned.
--- NOTE | 2020-12-06 17:59 | NUR ---
RT 0740 RECEIVED PT ORALLY INTUBATED WITH NOTED SETTINGS. 7.5 ETT MARKED @ 25CM LIP. TAIL SAWYER DONE AND TUBE IS SECURE. AMBU BAG NOTED HOB. VENT ALARMS CHECKED AND AUDIBLE. VENT PLUGGED IN RED OUTLET. [address] PARHAM, DECREASE FIO2 TO 70% 0920 PT START DESATTING INCREASED FIO2 TO 100%, ABG DONE AND RESULTS RELAYED TO DR PARHAM. [address] PARHAM, INCREASE PEEP TO 8 AND CAN GO UP TO 15 TO MAINTAIN SP02 > 90%, ORDER IS IN AND VENT CHANGES MADE 1030 INCREASED PEEP TO 12, DUE TO LOW SP02 85-87%, ORDER IS IN , VENT CHANGES MADE
--- NOTE | 2020-12-06 19:38 | NUR ---
PT REC'D ORALLY INTUBATED VIA ETT 7.5 SECURED @ 25 CM LIP LINE ON [facility] VENT WITH THE SETTINGS OF AC 20, 500,70%,PEEP 12. ET TUBE SECURED AND PATENT. BILATERAL CHEST RISE NOTED. PT IS SEDATED. SX DONE . ALARMS ARE SET AND AUDIBLE. VENT PLUGGED INTO RED OUTLET. AMBU BAG@ BEDSIDE. WILL CONTINUE TO MONITOR T/O THE SHIFT.
--- NOTE | 2020-12-06 23:00 | NUR ---
PT IS DESATTING, INCREASED FIO2 TO 100%, RN BIN AWARE.
--- NOTE | 2020-12-06 23:28 | NUR ---
INCREASED PEEP TO [address]'S ORDER[address] ARI STEWARD NOTIFIED
[2020-12-06] MEDS: HYDROCODONE/APAP 5/325MG TABLET PO PRN (23:41)
[2020-12-07] VITALS (85 sets, daily range): BP systolic 68–143; BP diastolic 25–85
[2020-12-07] MEDS: PROPOFOL 100 ML IV PRN ×9 (00:05→21:39)
[2020-12-07] MEDS: PHENYLEPHRINE 50 MG in IV NS 0.9% 245 ML IV PRN ×5 (02:12→22:43)
--- NOTE | 2020-12-07 08:00 | NUR ---
RN NOTE RECEIVED PATIENT IN BED, SEDATED. PATIENT IN NO S/SX OF ACUTE DISTRESS AT THIS TIME. PATIENT'S BREATHING IS EVEN AND UNLABORED. TOLERATING MECHANICAL VENT SETTING WELL. SATURATION CURRENTLY AT 94%. PATIENT IS SR-SR ON BEDSIDE MONITOR, HR IS 90. NG TUBE AT PLACEMENT WAS CHECKED , AND CLAMPED. NOTED GENOVEVA MIDLINE L PATENT AND FLUSHING WELL, NOREPINEPHRINE AT 3 MCG,LOW BP 88/50, DIPRIVAN 90MCG/KG/HR, DEMARCO CATH DRAINING TO A CLEAR YELLOW OUTPUT. ASSIST TURN AND REPOSTION Q 2 HR, SAFETY MEASURES IMPLEMENTED PER PROTOCOL. PATIENT BED ALARM IS ON. HEAD OF BED ELEVATED. BED IS LOCKED, IN LOWEST POSITION AND SIDE RAILS UP. CALL LIGHT WITHIN REACH OF THE PATIENT. WILL CONTINUE TO MONITOR.
[2020-12-07 08:39] LABS: BASOPHILS # (AUTO) 0.1 /CMM (0.0-0.2); BASOPHILS % (AUTO) 0.8 % (0.0-2.0); EOSINOPHILS % (AUTO) 0.2 % (0.0-6.0); HEMATOCRIT 28 % (39-51); HEMOGLOBIN 9.5 g/dL (13.5-17.5); LYMPHOCYTES # (AUTO) 0.4 /CMM (0.8-4.8); LYMPHOCYTES % (AUTO) 3.6 % (20.0-44.0); MEAN CORPUSCULAR HGB CONC 34 g/dl (31.0-36.0); MEAN CORPUSCULAR VOLUME 94 fL (80-96); MONOCYTES # (AUTO) 0.5 /CMM (0.1-1.30); MONOCYTES % (AUTO) 4.3 % (2.0-12.0); NEUTROPHILS # (AUTO) 10.2 /CMM (1.8-8.9); NEUTROPHILS % (AUTO) 91.1 % (43.0-81.0); PLATELET COUNT (AUTO) 191 /CMM (150-450); RED BLOOD CELL COUNT(AUTO) 3.03 MIL/uL (4.5-6.0); WHITE BLOOD COUNT (AUTO) 11.2 K/uL (4.3-11.0)
[2020-12-07 08:43] LABS: ABG BASE EXCESS -6.9 mmol/L; ABG OXYGEN SATURATION 98.3 % (92.0-98.5); ABG PCO2 36.2 mmHg (35.0-45.0); ABG PH 7.324 (7.350-7.450); ABG PO2 146.6 mmHg (75.0-100.0); AaDO2 530.2 mmHg; COHb 0.3 % (0.5-1.5); MetHb 0.4 % (0.0-1.5); O2Hb 97.6 % (94.0-97.0); SITE, ABG Right Femoral
[2020-12-07] MEDS: FUROSEMIDE 40 MG/4 ML VIAL IV SCH (09:00)
--- NOTE | 2020-12-07 09:00 | NUR ---
RN NOTES SEDATION VACATION, DONE TITRATED DIPRIVAN PER PROTOCOL, AM CARE DONE, ASSIST TURN AND REPOSITION Q 2 HR.
[2020-12-07] MEDS: HYDROCORTISONE SOD SUCCINATE 100 MG/2 ML VIAL IV SCH (10:32)
[2020-12-07] MEDS: PANTOPRAZOLE 40 MG VIAL IV SCH ×2 (10:33→16:23)
[2020-12-07] MEDS: ASPIRIN 81 MG TAB.CHEW PO SCH (10:33)
[2020-12-07 13:42] LABS: CALCIUM, SERUM 8.4 mg/dL (8.5-10.1); CREATININE 3.2 mg/dL (0.6-1.3); POTASSIUM 4.3 mmol/L (3.5-5.1)
[2020-12-07 14:46] LABS: MAGNESIUM 1.7 mg/dL (1.8-2.4); PHOSPHORUS 4.9 mg/dL (2.5-4.9)
[2020-12-07] MEDS: Magnesium 1GM/D5W 100ML PREMIX 100 ML IV SCH ×2 (16:23→17:07)
[2020-12-07] MEDS: GLUCERNA 1.2 1,000 ML BOTTLE NG PRN (17:20)
--- NOTE | 2020-12-07 17:30 | NUR ---
rn notes started Glucerna OGT feeding at this time 20 cc/hr intact, administered scheduled medication.
--- NOTE | 2020-12-07 18:30 | NUR ---
RN NOTES PATIENT PM CARE DONE, MEDICATION ADMINISTERED, SUCTION, NO ACUTE RESPIRATORY DISTRESS. OGT INTACT, RUNNING GLUCERNA 20 CC/HR INTACT, GOAL IS TITRATE 50CC Q12 HR, INFUSING DIPRIVAN 90MCG/KG/HR, AND NEOSYNEPHRINE 2.2 MCH/KG/HR,BP 95/51, AND DIPRIVAN 90MCG/KG/HR INTACT ON RIGHT UPPER ARM MIDLINE INFUSING WELL, DEMARCO DRAINING YELLOW OUTPUT, ASSIST TURN AND REPOSTION Q 2 HR, KEEP HOB ELEVATED. ENDORSED ONCOMING NURSE FOLLOW PLAN OF CARE.
[2020-12-07] MEDS ORDERED: PHENYLEPHRINE 10 MG/ML VIAL ONE (22:25)
[2020-12-08] VITALS (82 sets, daily range): BP systolic 89–129; BP diastolic 51–72
[2020-12-08] MEDS: PROPOFOL 100 ML IV PRN ×11 (00:38→22:59)
[2020-12-08] MEDS ORDERED: PHENYLEPHRINE 10 MG/ML VIAL ONE (03:33)
[2020-12-08] MEDS: PHENYLEPHRINE 50 MG in IV NS 0.9% 245 ML IV PRN ×4 (03:54→20:42)
--- NOTE | 2020-12-08 04:33 | NUR ---
RN notes Received patient in bed, sedated with no distress noted. Breathing even and unlabored. Vent setting well tolerated. No significant change of condition. FiO2 decreased to at 80% with a peep of 12, tolerating well. On Profopol drip (90mcg) and neosporing at drip (4mcg), No physical manifestation of pain or discomfort. On Levo drip at 2.2 mcg, no adverse effect noted. Vital signs within normal level. Suctioned moderate amount of semi loose yellowish thick secretion. Feeding well tolerated, increased to 50 mls/hr, no residual. Abdomen soft and non tender. Borden Cath in place draining clear yellow with no foul odor urine. Kept clean and dry. Will endorse to next shift for continuity of care. Addendum: 12/08/20 at 0442 by BIN POLK RN On neosyphrine drip, not levo. increased to 3mcg/kg/hr. No adverse effect noted. Addendum: 12/08/20 at 0446 by BIN POLK RN On neosyphrine drip, not levo at 2.2mcg/kg/hr (not 3mcg). NO adverse effect noted
[2020-12-08 05:46] LABS: ABG BASE EXCESS -5.8 mmol/L; ABG OXYGEN SATURATION 95.8 % (92.0-98.5); ABG PCO2 51.3 mmHg (35.0-45.0); ABG PH 7.243 (7.350-7.450); ABG PO2 88.4 mmHg (75.0-100.0); AaDO2 428.1 mmHg; COHb 0.3 % (0.5-1.5); MetHb 0.4 % (0.0-1.5); O2Hb 95.1 % (94.0-97.0); PEEP,BG 12 cm H2O; SITE, ABG Right Radial; VENT MODE, BG AC 20 500 80% +12; VT, ABG 500 mL
--- NOTE | 2020-12-08 08:00 | NUR ---
RN NOTES PATIENT HAS NO ACUTE RESPIRATORY DISTRESS, TOLERATING EET VENT SETTING WELL, BP HOLDING ON 99/64 ON NEOSYNEPHRINE 2 MCG/KG/HR AND DIPRIVAN 90 MCG/KG/HR ON RIGHT PICC LINE UPPER ARM INTACT, INFUSING WELL, DEMARCO DRAINING YELLOW OUTPUT BY GRAVITY. RESIDUAL 135 ML, PLACEMENT CHECKED TOO. KEEP HOB ELEVATED, MEDICATION ADMINISTERED VIS OGT, ASSIST TURN AND REPOSTION Q 2 HR. WILL MONITORING.
[2020-12-08] MEDS: FUROSEMIDE 40 MG/4 ML VIAL IV SCH (08:15)
[2020-12-08] MEDS ORDERED: DEXTROSE 50%-WATER 50 ML DISP.SYRIN IV PRN (09:00)
--- NOTE | 2020-12-08 09:00 | NUR ---
RN NOTES BS132 MG/DL, COVERAGE GIVEN, RESIDUAL GET 135 ML.
[2020-12-08] MEDS: BLOOD SUGAR DIAGNOSTIC 1 EACH STRIP IN SCH ×4 (09:20→22:16)
[2020-12-08] MEDS: HYDROCORTISONE SOD SUCCINATE 100 MG/2 ML VIAL IV SCH (09:20)
[2020-12-08] MEDS: PANTOPRAZOLE 40 MG VIAL IV SCH ×2 (09:20→16:44)
[2020-12-08] MEDS: ASPIRIN 81 MG TAB.CHEW PO SCH (09:20)
--- NOTE | 2020-12-08 12:00 | NUR ---
RN NOTES SEDATION VACATION DONE. AM CARE PROVIDED, SUCTION MOUTH, PATIENT HAS LATS OF SECRETION. MOUTH CARE DONE, BS-149MG/DL COVERAGE GIVEN.
[2020-12-08] MEDS: INSULIN REGULAR, HUMAN 100 UNIT/ML 3 ML VIAL SQ PRN ×3 (13:09→22:22)
[2020-12-08 13:53] LABS: BASOPHILS % (AUTO) 0.3 % (0.0-2.0); EOSINOPHILS % (AUTO) 0.4 % (0.0-6.0); HEMATOCRIT 26 % (39-51); HEMOGLOBIN 8.5 g/dL (13.5-17.5); LYMPHOCYTES # (AUTO) 0.3 /CMM (0.8-4.8); LYMPHOCYTES % (AUTO) 3.3 % (20.0-44.0); MEAN CORPUSCULAR HGB CONC 33 g/dl (31.0-36.0); MEAN CORPUSCULAR VOLUME 94 fL (80-96); MONOCYTES # (AUTO) 0.6 /CMM (0.1-1.30); NEUTROPHILS # (AUTO) 8.2 /CMM (1.8-8.9); RED BLOOD CELL COUNT(AUTO) 2.76 MIL/uL (4.5-6.0); WHITE BLOOD COUNT (AUTO) 9.2 K/uL (4.3-11.0)
[2020-12-08 14:05] LABS: ALBUMIN 1.5 g/dL (3.4-5.0); BILIRUBIN,TOTAL 0.6 mg/dL (0.2-1.0); CALCIUM, SERUM 8.3 mg/dL (8.5-10.1); CREATININE 3.3 mg/dL (0.6-1.3); MAGNESIUM 2.3 mg/dL (1.8-2.4); PHOSPHORUS 4.9 mg/dL (2.5-4.9); POTASSIUM 4.4 mmol/L (3.5-5.1); TOTAL PROTEIN, SERUM 5.4 g/dL (6.4-8.2)
[2020-12-08] MEDS: GLUCERNA 1.2 1,000 ML BOTTLE NG PRN (16:43)
[2020-12-08 16:52] LABS: PLATELET COUNT (AUTO) 146 /CMM (150-450)
--- NOTE | 2020-12-08 18:48 | NUR ---
RN NOTES PM CARE DONE, SUCTION , DUE MEDICATION ADMINISTERED, BS-158 MG/DL COVERAGE GIVEN. INFUSING DIPRIVAN 90 MCG/KG/HR, AND NEOSYNEPHRINE 2 MCG/KG/HR, BP-, RUNNING GLUCERNA 50 CC./HR INTACT, KEEP HOB ELEVATED, ASSIST TURN AND REPOSTION Q 2 HR. ENDORSED ONCOMING NURSE FOLLOW PLAN OF CARE.
--- NOTE | 2020-12-08 19:10 | NUR ---
LINE COOK NOTE RECEIVED PATIENT SEDATED ON MECHANICAL VENT SETTING ON ETT 7.5/25 AC20 TV 821QGF0:70% PEEP 10 O2:96% ON ORAL G TUBE GLUCERNA 1.2 AT 50 CC/HR CHECKED PLACEMENT IN PLACE 110 CC RESIDUAL, ON NEOSY 1.8 MCG/KG/MIN AND PROPOFOL 90MCG/KG/MIN HEAD OF BED ELEVATED, IV LINE IS ON RIGHT UPPER ARM MIDLINE INTACT PATENT,SAFETY MEASURE IMPLEMENT CONTINUE TO MONITOR.
[2020-12-09] VITALS (89 sets, daily range): BP systolic 78–138; BP diastolic 44–76
[2020-12-09] MEDS: PROPOFOL 100 ML IV PRN ×7 (01:48→15:42)
[2020-12-09] MEDS: PHENYLEPHRINE 50 MG in IV NS 0.9% 245 ML IV PRN ×2 (02:47→14:31)
[2020-12-09 04:35] LABS: BASOPHILS % (AUTO) 0.7 % (0.0-2.0); EOSINOPHILS % (AUTO) 2.1 % (0.0-6.0); HEMATOCRIT 26 % (39-51); HEMOGLOBIN 8.7 g/dL (13.5-17.5); LYMPHOCYTES # (AUTO) 0.6 /CMM (0.8-4.8); LYMPHOCYTES % (AUTO) 8.3 % (20.0-44.0); MEAN CORPUSCULAR HGB CONC 34 g/dl (31.0-36.0); MEAN CORPUSCULAR VOLUME 94 fL (80-96); MONOCYTES # (AUTO) 0.4 /CMM (0.1-1.30); MONOCYTES % (AUTO) 5.3 % (2.0-12.0); NEUTROPHILS # (AUTO) 5.7 /CMM (1.8-8.9); NEUTROPHILS % (AUTO) 83.6 % (43.0-81.0); PLATELET COUNT (AUTO) 148 /CMM (150-450); RED BLOOD CELL COUNT(AUTO) 2.75 MIL/uL (4.5-6.0); WHITE BLOOD COUNT (AUTO) 6.8 K/uL (4.3-11.0)
[2020-12-09 04:51] LABS: CALCIUM, SERUM 8.4 mg/dL (8.5-10.1); POTASSIUM 4.1 mmol/L (3.5-5.1)
--- NOTE | 2020-12-09 06:00 | NUR ---
RN NOTE FIO2 INCREASED FROM 70% TO 80%
[2020-12-09 06:06] LABS: ABG BASE EXCESS -4.5 mmol/L; ABG OXYGEN SATURATION 90.3 % (92.0-98.5); ABG PCO2 44.1 mmHg (35.0-45.0); ABG PH 7.307 (7.350-7.450); ABG PO2 63.1 mmHg (75.0-100.0); AaDO2 388.6 mmHg; COHb 0.1 % (0.5-1.5); MetHb 0.3 % (0.0-1.5); O2Hb 89.9 % (94.0-97.0); PEEP,BG 10 cm H2O; SITE, ABG Right Radial; VENT MODE, BG AC 20 500 70% +10; VT, ABG 500 mL
--- NOTE | 2020-12-09 07:06 | NUR ---
RN NOTE PATIENT REMAINS ON SEDATED ON MECHANICAL VENT ETT 7.5/25 AC 20 TV500 FIO2:80% PEEP 10 ON ORAL G-TUBE GLUCERNA 1.2 50CC/HR ON PROPOFOL 90 MCG/KG/MIN AND STOPPED NEORSY HEAD THE BED ELEVATED ALL DUE MEDS GIVEN MD ORDERED KEPT CLEAN AND ALL THE TIME,ENDORSE NEXT COMING SHIFT FOR CONTINUATION OF CARE.
[2020-12-09] MEDS: BLOOD SUGAR DIAGNOSTIC 1 EACH STRIP IN SCH ×4 (08:02→22:59)
[2020-12-09] MEDS: PANTOPRAZOLE 40 MG VIAL IV SCH ×2 (08:16→16:03)
[2020-12-09] MEDS: ASPIRIN 81 MG TAB.CHEW PO SCH (08:16)
[2020-12-09] MEDS: HYDROCORTISONE SOD SUCCINATE 100 MG/2 ML VIAL IV SCH (08:16)
[2020-12-09] MEDS: INSULIN REGULAR, HUMAN 100 UNIT/ML 3 ML VIAL SQ PRN ×2 (08:39→12:13)
[2020-12-09] MEDS ORDERED: FENTANYL CITRATE IV 1,250 MCG in IV NS 0.9% 225 ML IV PRN (10:00)
[2020-12-09] MEDS ORDERED: LORAZEPAM INJ 2 MG/ML VIAL IV STA (10:01)
[2020-12-09] MEDS: FENTANYL CITRAT IV 2,500 MCG in IV NS 0.9% 200 ML IV PRN (11:43)
[2020-12-09] MEDS: GLUCERNA 1.2 1,000 ML BOTTLE NG PRN (12:13)
[2020-12-09] MEDS: ACETAMINOPHEN 325 MG TABLET PO PRN ×2 (13:40→19:52)
[2020-12-09] MEDS: MIDAZOLAM HCL 100 MG in IV NS 0.9% 80 ML IV PRN (15:47)
[2020-12-10] VITALS (98 sets, daily range): BP systolic 84–145; BP diastolic 57–83
[2020-12-10] MEDS: PHENYLEPHRINE 50 MG in IV NS 0.9% 245 ML IV PRN ×2 (01:30→14:02)
[2020-12-10] MEDS ORDERED: ADENOSINE 6 MG/2 ML VIAL IVP STA (04:15)
[2020-12-10] MEDS ORDERED: ADENOSINE 6 MG/2 ML VIAL IVP ONE (04:30)
[2020-12-10 04:49] LABS: CALCIUM, SERUM 8.3 mg/dL (8.5-10.1); CREATININE 2.5 mg/dL (0.6-1.3); MAGNESIUM 1.9 mg/dL (1.8-2.4); PHOSPHORUS 4.7 mg/dL (2.5-4.9); POTASSIUM 4.8 mmol/L (3.5-5.1)
[2020-12-10 04:51] LABS: BASOPHILS # (AUTO) 0.1 /CMM (0.0-0.2); BASOPHILS % (AUTO) 1.1 % (0.0-2.0); EOSINOPHILS % (AUTO) 1.8 % (0.0-6.0); HEMATOCRIT 26 % (39-51); HEMOGLOBIN 8.4 g/dL (13.5-17.5); LYMPHOCYTES # (AUTO) 0.6 /CMM (0.8-4.8); LYMPHOCYTES % (AUTO) 8.9 % (20.0-44.0); MEAN CORPUSCULAR HGB CONC 33 g/dl (31.0-36.0); MEAN CORPUSCULAR VOLUME 94 fL (80-96); MONOCYTES # (AUTO) 0.5 /CMM (0.1-1.30); MONOCYTES % (AUTO) 6.9 % (2.0-12.0); NEUTROPHILS # (AUTO) 5.6 /CMM (1.8-8.9); NEUTROPHILS % (AUTO) 81.3 % (43.0-81.0); PLATELET COUNT (AUTO) 108 /CMM (150-450); RED BLOOD CELL COUNT(AUTO) 2.72 MIL/uL (4.5-6.0); WHITE BLOOD COUNT (AUTO) 6.9 K/uL (4.3-11.0)
--- NOTE | 2020-12-10 05:00 | NUR ---
BRAKE REPAIR SUPERVISOR PT NOTED TO GO INTO SVT 180s. ADENOSINE 6 MG IVP GIVEN; NOT EFFECTIVE FOLLOWED BY 12 MG; ST 120s.
[2020-12-10 05:23] LABS: ABG BASE EXCESS -2.2 mmol/L; ABG OXYGEN SATURATION 97.2 % (92.0-98.5); ABG PCO2 55.6 mmHg (35.0-45.0); ABG PO2 109.7 mmHg (75.0-100.0); AaDO2 402.3 mmHg; COHb 0.2 % (0.5-1.5); MetHb 0.4 % (0.0-1.5); O2Hb 96.6 % (94.0-97.0); SITE, ABG Right Radial
[2020-12-10] MEDS: MIDAZOLAM HCL 100 MG in IV NS 0.9% 80 ML IV PRN ×2 (05:44→20:45)
[2020-12-10] MEDS ORDERED: AMIODARONE 150 MG in IV D5W 100 ML IV ONE (07:30)
[2020-12-10] MEDS ORDERED: AMIODARONE 450 MG in IV D5W 250 ML IV PRN (07:30)
[2020-12-10] MEDS: BLOOD SUGAR DIAGNOSTIC 1 EACH STRIP IN SCH ×4 (07:30→21:47)
--- NOTE | 2020-12-10 08:33 | NUR ---
RN NOTES LOADING DOSE OF AMIO GIVEN, AMIO DRIP IS ALREADY RUNNING BUT UNABLE TO SCAN, CALLED PHARMACY TO INFORM THEM, PER PHARMACY IT IS OKAY, JUST PUT NOTES AND THEY WILL SEND A NEW LABEL.
[2020-12-10] MEDS: ACETAMINOPHEN 325 MG TABLET PO PRN ×2 (08:41→17:28)
[2020-12-10] MEDS: PANTOPRAZOLE 40 MG VIAL IV SCH ×2 (08:41→16:04)
[2020-12-10] MEDS: ASPIRIN 81 MG TAB.CHEW PO SCH (08:42)
[2020-12-10] MEDS: HYDROCORTISONE SOD SUCCINATE 100 MG/2 ML VIAL IV SCH (08:42)
[2020-12-10] MEDS: GLUCERNA 1.2 1,000 ML BOTTLE NG PRN (08:51)
[2020-12-10] MEDS: INSULIN REGULAR, HUMAN 100 UNIT/ML 3 ML VIAL SQ PRN ×4 (09:05→21:48)
[2020-12-10] MEDS: FENTANYL CITRAT IV 2,500 MCG in IV NS 0.9% 200 ML IV PRN (12:58)
--- NOTE | 2020-12-10 14:45 | NUR ---
RN NOTES AMIO DRIP STARTED AT 08:30, 1MG/MIN (33.3 RATE) X 6HRS THEN AT 14:30 CHANGED IT TO 0.5MG/MIN (16.6 RATE) AND WILL RUN FOR 18 HRS. UNABLE TO SCAN THE MEDICATION, CALLED PHARMACY AND SPOKE TO HERMELINDA. WILL CONTINUE TO MONITOR.
--- NOTE | 2020-12-10 19:29 | NUR ---
FINISH CLEANER OPENING NOTES: Rec'd pt in bed, intubated 7.5/25cm at the lip on mechanical ventilation. Tolerating settings well. ST on tele monitor. GTF Glucerna infusing at 50ml/hr. GENOVEVA midline patent and infusing Fentanyl at 1mcg, Versed at 7ml/hr, Simon at 1mcg, and Amio at 0.5mg/hr. Borden catheter in place draining urine via gravity. Safety measures in place. Will continue to monitor.
[2020-12-11] VITALS (92 sets, daily range): BP systolic 93–140; BP diastolic 55–104
[2020-12-11] MEDS: PHENYLEPHRINE 50 MG in IV NS 0.9% 245 ML IV PRN ×2 (01:35→13:16)
[2020-12-11 04:21] LABS: BASOPHILS % (AUTO) 0.6 % (0.0-2.0); EOSINOPHILS % (AUTO) 1.5 % (0.0-6.0); HEMATOCRIT 25 % (39-51); HEMOGLOBIN 8.3 g/dL (13.5-17.5); LYMPHOCYTES # (AUTO) 0.7 /CMM (0.8-4.8); LYMPHOCYTES % (AUTO) 10.3 % (20.0-44.0); MEAN CORPUSCULAR HGB CONC 33 g/dl (31.0-36.0); MEAN CORPUSCULAR VOLUME 95 fL (80-96); MONOCYTES # (AUTO) 0.5 /CMM (0.1-1.30); MONOCYTES % (AUTO) 7.5 % (2.0-12.0); NEUTROPHILS # (AUTO) 5.2 /CMM (1.8-8.9); NEUTROPHILS % (AUTO) 80.1 % (43.0-81.0); PLATELET COUNT (AUTO) 110 /CMM (150-450); RED BLOOD CELL COUNT(AUTO) 2.63 MIL/uL (4.5-6.0); WHITE BLOOD COUNT (AUTO) 6.4 K/uL (4.3-11.0)
[2020-12-11] MEDS: ACETAMINOPHEN 325 MG TABLET PO PRN (04:29)
[2020-12-11 04:34] LABS: CALCIUM, SERUM 8.4 mg/dL (8.5-10.1); CREATININE 2.3 mg/dL (0.6-1.3)
--- NOTE | 2020-12-11 04:36 | NUR ---
ROBOTIC MACHINE OPERATOR NOTE: Pt's GT residual noted to be 250ml. TF held, charge nurse aware.
--- NOTE | 2020-12-11 04:40 | NUR ---
SWAMPER NOTE: RT titrated fio2 to 70%. Will continue to monitor.
[2020-12-11] MEDS: ASPIRIN 81 MG TAB.CHEW PO SCH (08:49)
[2020-12-11] MEDS: HYDROCORTISONE SOD SUCCINATE 100 MG/2 ML VIAL IV SCH (08:50)
[2020-12-11] MEDS: PANTOPRAZOLE 40 MG VIAL IV SCH ×2 (08:50→17:10)
--- NOTE | 2020-12-11 08:53 | NUR ---
WOUND CARE CONSULT: REVIEWED CHART AND NURSING DOCUMENTATION WHICH INDICATES IMMOBILITY. PT IS ON LILI ISOFLEX LOW AIRLOSS BED. DEMARCO CATH NOTED. RECOMMENDATIONS MADE FOR SKIN PROTECTION. DISCUSSED WITH NURSING STAFF. MD IN AGREEMENT WITH PLAN OF CARE.
[2020-12-11] MEDS ORDERED: METOCLOPRAMIDE HCL 10 MG/2 ML VIAL IV PRN (11:00)
[2020-12-11] MEDS: MIDAZOLAM HCL 100 MG in IV NS 0.9% 80 ML IV PRN (11:15)
[2020-12-11] MEDS: BLOOD SUGAR DIAGNOSTIC 1 EACH STRIP IN SCH ×2 (11:31→17:17)
[2020-12-11] MEDS: INSULIN REGULAR, HUMAN 100 UNIT/ML 3 ML VIAL SQ PRN ×2 (11:35→17:20)
[2020-12-11] MEDS: AMIODARONE HCL 200 MG TABLET PO SCH ×2 (13:24→17:10)
[2020-12-11] MEDS: GLUCERNA 1.2 1,000 ML BOTTLE NG PRN (17:13)
[2020-12-12] VITALS (92 sets, daily range): BP systolic 99–142; BP diastolic 59–88
[2020-12-12] MEDS: BLOOD SUGAR DIAGNOSTIC 1 EACH STRIP IN SCH ×5 (00:58→23:14)
[2020-12-12] MEDS: FENTANYL CITRAT IV 2,500 MCG in IV NS 0.9% 200 ML IV PRN (01:00)
[2020-12-12] MEDS: MIDAZOLAM HCL 100 MG in IV NS 0.9% 80 ML IV PRN ×2 (01:07→12:47)
[2020-12-12] MEDS: PHENYLEPHRINE 50 MG in IV NS 0.9% 245 ML IV PRN ×3 (01:07→23:55)
[2020-12-12] MEDS: INSULIN REGULAR, HUMAN 100 UNIT/ML 3 ML VIAL SQ PRN ×3 (01:26→17:00)
[2020-12-12 04:11] LABS: BASOPHILS # (AUTO) 0.1 /CMM (0.0-0.2); BASOPHILS % (AUTO) 1.2 % (0.0-2.0); HEMATOCRIT 24 % (39-51); LYMPHOCYTES # (AUTO) 0.9 /CMM (0.8-4.8); LYMPHOCYTES % (AUTO) 12.3 % (20.0-44.0); MEAN CORPUSCULAR HGB CONC 33 g/dl (31.0-36.0); MEAN CORPUSCULAR VOLUME 94 fL (80-96); MONOCYTES # (AUTO) 0.5 /CMM (0.1-1.30); MONOCYTES % (AUTO) 7.3 % (2.0-12.0); NEUTROPHILS # (AUTO) 5.3 /CMM (1.8-8.9); NEUTROPHILS % (AUTO) 75.2 % (43.0-81.0); PLATELET COUNT (AUTO) 107 /CMM (150-450); WHITE BLOOD COUNT (AUTO) 7.1 K/uL (4.3-11.0)
[2020-12-12 04:17] LABS: CALCIUM, SERUM 8.3 mg/dL (8.5-10.1); CREATININE 2.1 mg/dL (0.6-1.3); MAGNESIUM 1.9 mg/dL (1.8-2.4); PHOSPHORUS 2.6 mg/dL (2.5-4.9); POTASSIUM 4.6 mmol/L (3.5-5.1)
[2020-12-12 07:34] LABS: ABG BASE EXCESS 0.3 mmol/L; ABG OXYGEN SATURATION 91.6 % (92.0-98.5); ABG PCO2 49.6 mmHg (35.0-45.0); ABG PH 7.342 (7.350-7.450); ABG PO2 65.9 mmHg (75.0-100.0); AaDO2 379.9 mmHg; COHb 0.8 % (0.5-1.5); MetHb 0.2 % (0.0-1.5); O2Hb 90.7 % (94.0-97.0); SITE, ABG Right Femoral; VENT MODE, BG AC 20 500 70% +10
--- NOTE | 2020-12-12 08:00 | NUR ---
rn notes Recivied pt in bed, intubated on mechanical ventilation tolearing setting well. no acute respiratory distress, suction patient hasn lats of secrition. ST on tele monitor 80. GTF Glucerna infusing at 50ml/hr. residual 100 ml, also checked placement. GENOVEVA midline patent and infusing Fentanyl at 1mcg, Versed at 7ml/hr, Simon at 1mcg. Borden catheter in place draining urine via gravity. Safety measures in place. Will continue to monitor.
[2020-12-12] MEDS: PANTOPRAZOLE 40 MG VIAL IV SCH ×2 (09:12→16:46)
[2020-12-12] MEDS: ASPIRIN 81 MG TAB.CHEW PO SCH (09:13)
[2020-12-12] MEDS: HYDROCORTISONE SOD SUCCINATE 100 MG/2 ML VIAL IV SCH (09:13)
[2020-12-12] MEDS: AMIODARONE HCL 200 MG TABLET PO SCH ×3 (09:13→16:46)
[2020-12-12] MEDS: GLUCERNA 1.2 1,000 ML BOTTLE NG PRN (10:57)
[2020-12-12] MEDS: IV NS 0.9% 250 ML IV PRN (13:35)
--- NOTE | 2020-12-12 16:35 | NUR ---
rn notes covid -19 retesting swab done .
--- NOTE | 2020-12-12 18:00 | NUR ---
rn notes patient covid test resule get negative, per lab result.
--- NOTE | 2020-12-12 18:30 | NUR ---
raul harris pm acre done, suction keep hob elevated, due medication administered, patient stable at this time. assist turn and repostion q 2 hr . titrated medication per protocol. keep hob elevated, assist turn and repostion q 2 hr. endorsed oncoming nurse follow plan of care.
--- NOTE | 2020-12-12 19:05 | NUR ---
RN NOTE RECEIVED PT SEDATED IN BED IN SEMI CHACON'S POSITION. INTUBATED AND TOLERATING VENT SETTINGS WELL. RESPIRATIONS EVEN AND UNLABORED, NO SIGNS OF PAIN OR DISCOMFORT. VITAL SIGNS STABLE VIA BEDSIDE MONITOR. SR ON THE ACUTE CARE REGISTERED NURSE. DEMARCO CATHETER PATENT AND IN PLACE DRAINING CLEAR YELLOW URINE VIA GRAVITY. OGT PATENT AND IN PLACE VERIFIED VIA AUSCULTATION AND ASPIRATION OF GASTRIC CONTENTS. WITH GLUCERNA RUNNING @ 50CC/HOUR HELD DUE TO GASTRIC RESIDUAL > 100ML. RIGHT UPPER ARM MID LINE PATENT AND WITHOUT COMPLICATIONS NOTED AT SITE. WITH VERSED RUNNING AT 7MG, FENTANYL RUNNING AT 1MCG, AND VAL RUNNING AT 1MCG. IV COMPATIBILITY VERIFIED VIA MICROMEDEX. ORAL CARE DONE. SAFETY MEASURES IN PLACE PER PROTOCOL, BED ALARM ON, BED LOCKED AND IN LOW POSITION, SIDE RAILS UP X 2, WILL MONITOR PATIENT.
--- NOTE | 2020-12-12 23:34 | NUR ---
RN NOTE RECHECKED GASTRIC RESIDUAL. 60CC. RESUMED FEEDING AT 35CC/HOUR AND WILL INCREASE TOLERATED. OGT PLACEMENT VERIFIED BY AUSCULTATION BEFORE RESUMPTION OF TUBE FEEDING.
[2020-12-13] VITALS (89 sets, daily range): BP systolic 84–124; BP diastolic 45–70
--- NOTE | 2020-12-13 | NUR ---
RN NOTE COMPLETE BED BATH AND LINEN CHANGE COMPLETED. PT TOLERATED WELL. VITAL SIGNS STABLE. OGT PLACEMENT VERIFIED BY AUSCULTATION AND ASPIRATION OF GASTRIC CONTENTS.
[2020-12-13] MEDS: FENTANYL CITRAT IV 2,500 MCG in IV NS 0.9% 200 ML IV PRN (00:17)
[2020-12-13] MEDS: MIDAZOLAM HCL 100 MG in IV NS 0.9% 80 ML IV PRN ×2 (02:55→16:30)
[2020-12-13 04:20] LABS: BASOPHILS % (AUTO) 0.7 % (0.0-2.0); EOSINOPHILS % (AUTO) 4.9 % (0.0-6.0); HEMATOCRIT 22 % (39-51); HEMOGLOBIN 7.4 g/dL (13.5-17.5); LYMPHOCYTES # (AUTO) 0.8 /CMM (0.8-4.8); LYMPHOCYTES % (AUTO) 12.9 % (20.0-44.0); MEAN CORPUSCULAR HGB CONC 33 g/dl (31.0-36.0); MEAN CORPUSCULAR VOLUME 95 fL (80-96); MONOCYTES # (AUTO) 0.5 /CMM (0.1-1.30); MONOCYTES % (AUTO) 8.8 % (2.0-12.0); NEUTROPHILS # (AUTO) 4.3 /CMM (1.8-8.9); NEUTROPHILS % (AUTO) 72.7 % (43.0-81.0); PLATELET COUNT (AUTO) 160 /CMM (150-450); RED BLOOD CELL COUNT(AUTO) 2.37 MIL/uL (4.5-6.0); WHITE BLOOD COUNT (AUTO) 5.9 K/uL (4.3-11.0)
[2020-12-13 04:34] LABS: CALCIUM, SERUM 8.3 mg/dL (8.5-10.1); CREATININE 1.9 mg/dL (0.6-1.3); MAGNESIUM 1.9 mg/dL (1.8-2.4); PHOSPHORUS 2.6 mg/dL (2.5-4.9); POTASSIUM 4.4 mmol/L (3.5-5.1)
[2020-12-13] MEDS: BLOOD SUGAR DIAGNOSTIC 1 EACH STRIP IN SCH ×4 (05:17→23:29)
[2020-12-13 05:39] LABS: BAND % (MANUAL) 5 % (0.0-5.0); EOSINOPHILS % (MANUAL) 3 % (0-4); LYMPHOCYTES % (MANUAL) 13 % (16-48); MONOCYTES % (MANUAL) 8 % (0-11.0); NEUTROPHILS % (MANUAL) 71 (42-76)
--- NOTE | 2020-12-13 06:05 | NUR ---
RN NOTE ABG RESULTED. NO CHANGES MADE TO VENT SETTINGS PER RT.
[2020-12-13 06:06] LABS: ABG OXYGEN SATURATION 94.1 % (92.0-98.5); ABG PCO2 55.1 mmHg (35.0-45.0); ABG PH 7.316 (7.350-7.450); ABG PO2 74.6 mmHg (75.0-100.0); AaDO2 365.3 mmHg; COHb 0.6 % (0.5-1.5); O2Hb 93.5 % (94.0-97.0); PEEP,BG 10 cm H2O
--- NOTE | 2020-12-13 06:55 | NUR ---
RN NOTE NO ACUTE CHANGES OBSERVED OVERNIGHT. PT REMAINS SEDATED IN BED IN SEMI CHACON'S POSITION. INTUBATED. NO CHANGES MADE TO VENT SETTINGS THIS SHIFT. RESPIRATIONS EVEN AND UNLABORED, NO SIGNS OF PAIN OR DISCOMFORT. VITAL SIGNS STABLE VIA BEDSIDE MONITOR. SR ON THE ELECTRONIC PARTS DESIGNER. DEMARCO CATHETER PATENT AND IN PLACE DRAINING CLEAR YELLOW URINE VIA GRAVITY. OGT PATENT AND IN PLACE VERIFIED VIA AUSCULTATION AND ASPIRATION OF GASTRIC CONTENTS. WITH GLUCERNA RUNNING @ 35CC/HOUR. 50ML OF GASTRIC RESIDUAL NOTED. RIGHT UPPER ARM MID LINE PATENT AND WITHOUT COMPLICATIONS NOTED AT SITE. WITH VERSED RUNNING AT 7MG, FENTANYL RUNNING AT 1MCG, AND VAL RUNNING AT 0.9MCG. ORAL CARE DONE. TURNED AND REPOSITIONED PER COMFORT AND TOLERATED, SAFETY MEASURES IN PLACE PER PROTOCOL, BED ALARM ON, BED LOCKED AND IN LOW POSITION, SIDE RAILS UP X 2, WILL ENDORSE TO MORNING RN FOR EMMANUEL.
--- NOTE | 2020-12-13 07:50 | NUR ---
RN NOTES GET PATIENT RESIDUAL 120 ML, HOLD FEEDING, V/S STABLE VIA BEDSIDE MONITOR SR 79, NO ACUTE RESPIRATORY DISTRESS, OGT PATENT AND IN PLACE VERIFIED VIA AUSCULTATION AND ASPIRATION OF GASTRIC. RIGHT UPPER ARM MID LINE PATENT AND WITHOUT COMPLICATIONS NOTED AT SITE. WITH VERSED AT 7MG, FENTANYL 1M MG AND NEOSYNEPHRINE 0.9 MCG/KG/HR. FOLET DRAINING BY GRAVITY. TURNED AND REPOSITIONED PER COMFORT AND TOLERATED, SAFETY MEASURES IN PLACE PER PROTOCOL, BED ALARM ON, BED LOCKED AND IN LOW POSITION, SIDE RAILS UP X 2. WILL MONITORING.
[2020-12-13] MEDS: HYDROCORTISONE SOD SUCCINATE 100 MG/2 ML VIAL IV SCH (09:19)
[2020-12-13] MEDS: PANTOPRAZOLE 40 MG VIAL IV SCH ×2 (09:19→17:43)
[2020-12-13] MEDS: AMIODARONE HCL 200 MG TABLET PO SCH ×3 (09:20→17:44)
[2020-12-13] MEDS: ASPIRIN 81 MG TAB.CHEW PO SCH (09:20)
[2020-12-13] MEDS: IV NS 0.9% 250 ML IV PRN (10:17)
[2020-12-13] MEDS: PHENYLEPHRINE 50 MG in IV NS 0.9% 245 ML IV PRN (12:29)
[2020-12-13] MEDS: INSULIN REGULAR, HUMAN 100 UNIT/ML 3 ML VIAL SQ PRN ×2 (13:39→17:52)
--- NOTE | 2020-12-13 17:04 | NUR ---
rn notes started blood transfusion at this time v/s wnl, t-98.2, r-20, bp 97/57,p-69 patient sedated, no acute respiratory distress, will monitoring.
--- NOTE | 2020-12-13 17:20 | NUR ---
rn notes v/s t-98, p-67, r-15, bp 104/61, no acute respiratory distress, increase infusion 75 ml/hr.
[2020-12-13] MEDS: GLUCERNA 1.2 1,000 ML BOTTLE NG PRN (17:43)
--- NOTE | 2020-12-13 18:00 | NUR ---
rn notes patient stable no acute respiratory distress, t098, r-19, p=67, bp 108/63. increased blood infusion 125 ml/hr intact. will monitoring.
--- NOTE | 2020-12-13 18:48 | NUR ---
rn notes GET TO ORDER DULCOLAX SUPPOSITORY RECTAL DAILY PRN. ORDER TAKEN AND CARRIED OUT.
--- NOTE | 2020-12-13 19:00 | NUR ---
RN NOTES PATIENT STILL GETTING BLOOD TRANSFUSION, NO ACUTE RESPIRATORY DISTRESS, V/S STABLE, ENDORSEDONCOMING NURSE FOLLOW PLAN OF CARE.
--- NOTE | 2020-12-13 19:15 | NUR ---
FLAT DRIER OPENING NOTES: Rec'd pt in bed, intubated 7.5/25cm at the lip on mechanical ventilation. Tolerating settings well. SR on tele monitor. GTF Glucerna infusing at 50ml/hr. GENOVEVA midline patent and infusing Fentanyl at 1mcg, Versed at 7ml/hr, and Simon at 0.5mcg. Blood transfusion currently infusing. No adverse reactions noted. Borden catheter in place draining urine via gravity. Safety measures in place. Will continue to monitor.
[2020-12-14] VITALS (82 sets, daily range): BP systolic 79–136; BP diastolic 50–75
[2020-12-14] MEDS: BISACODYL SUPP (10 MG) 10 MG/SUPP.RECT SUPP.RECT RC PRN (00:21)
[2020-12-14] MEDS: FENTANYL CITRAT IV 2,500 MCG in IV NS 0.9% 200 ML IV PRN (00:46)
[2020-12-14 05:06] LABS: BASOPHILS % (AUTO) 0.6 % (0.0-2.0); EOSINOPHILS % (AUTO) 4.3 % (0.0-6.0); HEMATOCRIT 27 % (39-51); HEMOGLOBIN 8.8 g/dL (13.5-17.5); LYMPHOCYTES # (AUTO) 0.7 /CMM (0.8-4.8); LYMPHOCYTES % (AUTO) 13.7 % (20.0-44.0); MEAN CORPUSCULAR HGB CONC 33 g/dl (31.0-36.0); MEAN CORPUSCULAR VOLUME 96 fL (80-96); MONOCYTES # (AUTO) 0.4 /CMM (0.1-1.30); MONOCYTES % (AUTO) 7.8 % (2.0-12.0); NEUTROPHILS # (AUTO) 3.5 /CMM (1.8-8.9); NEUTROPHILS % (AUTO) 73.6 % (43.0-81.0); PLATELET COUNT (AUTO) 165 /CMM (150-450); RED BLOOD CELL COUNT(AUTO) 2.78 MIL/uL (4.5-6.0); WHITE BLOOD COUNT (AUTO) 4.8 K/uL (4.3-11.0)
[2020-12-14 05:18] LABS: CALCIUM, SERUM 8.6 mg/dL (8.5-10.1); CREATININE 1.8 mg/dL (0.6-1.3); POTASSIUM 4.6 mmol/L (3.5-5.1)
[2020-12-14] MEDS: BLOOD SUGAR DIAGNOSTIC 1 EACH STRIP IN SCH ×4 (05:21→23:46)
[2020-12-14] MEDS: MIDAZOLAM HCL 100 MG in IV NS 0.9% 80 ML IV PRN ×2 (05:29→18:09)
--- NOTE | 2020-12-14 07:58 | NUR ---
RN OPENING NOTES: RECEIVED PT IN BED, PT IS INTUBATED 7.5/25cm AT THE LIP ON MECHANICAL VENTILATION ORDERED PER SETTINGS. TOLERATING WELL NO S/S OF SHORTNESS OB BREATH OR RESPIRATORY DISTRESS NOTED. SB ON MONITOR. NGT IN PLACE. GENOVEVA PICC LINE WITH Fentanyl at 1mcg ,Versed at 7ml/hr . DEMARCO CATH IN PLACE DRAINING YELLOW SAFETY MEASUREMENTS ARE IN PLACE. BED IS IN THE LOWEST POSITION, BED LOCKED AND SIDE RAILS ARE UP. WILL CONTINUE TO MONITOR
[2020-12-14] MEDS: PANTOPRAZOLE 40 MG VIAL IV SCH ×2 (08:11→16:20)
[2020-12-14] MEDS: ASPIRIN 81 MG TAB.CHEW PO SCH (08:12)
[2020-12-14] MEDS: AMIODARONE HCL 200 MG TABLET PO SCH ×3 (08:12→16:20)
[2020-12-14] MEDS: HYDROCORTISONE SOD SUCCINATE 100 MG/2 ML VIAL IV SCH (08:12)
[2020-12-14 08:37] LABS: ABG BASE EXCESS 2.7 mmol/L; ABG OXYGEN SATURATION 91.3 % (92.0-98.5); ABG PCO2 53.8 mmHg (35.0-45.0); ABG PH 7.349 (7.350-7.450); ABG PO2 62.8 mmHg (75.0-100.0); AaDO2 378.5 mmHg; COHb 0.9 % (0.5-1.5); MetHb 0.3 % (0.0-1.5); O2Hb 90.2 % (94.0-97.0); PEEP,BG 10 cm H2O; SITE, ABG Right Radial; VT, ABG 500 mL
[2020-12-14] MEDS: INSULIN REGULAR, HUMAN 100 UNIT/ML 3 ML VIAL SQ PRN ×3 (11:05→23:46)
--- NOTE | 2020-12-14 11:38 | NUR ---
RN NOTES PEEP OF 12
[2020-12-14] MEDS: GLUCERNA 1.2 1,000 ML BOTTLE NG PRN (17:28)
--- NOTE | 2020-12-14 19:06 | NUR ---
RN CLOSING NOTES: RECEIVED PT IN BED, PT IS INTUBATED 7.5/25cm AT THE LIP ON MECHANICAL VENTILATION ORDERED PER SETTINGS. TOLERATING WELL NO S/S OF SHORTNESS OB BREATH OR RESPIRATORY DISTRESS NOTED. SB ON MONITOR. NGT IN PLACE. GENOVEVA PICC LINE WITH Fentanyl at 1mcg ,Versed at 7ml/hr . DEMARCO CATH IN PLACE DRAINING YELLOW SAFETY MEASUREMENTS ARE IN PLACE. BED IS IN THE LOWEST POSITION, BED LOCKED AND SIDE RAILS ARE UP. WILL ENDORSE TO PM NURSE FOR EMMANUEL
--- NOTE | 2020-12-14 19:20 | NUR ---
ROLLING UP MACHINE OPERATOR OPENING NOTES: Rec'd pt in bed, intubated 7.5/25cm at the lip on mechanical ventilation. Tolerating settings well. SR on tele monitor. GTF Glucerna infusing at 50ml/hr. GENOVEVA midline patent and infusing Fentanyl at 1mcg and Versed at 7ml/hr. Borden catheter in place draining urine via gravity. Safety measures in place. Will continue to monitor.
--- NOTE | 2020-12-14 20:27 | NUR ---
RECEIVED PT INTUBATED ON VENT 7.5 ETT SECURED AT 25CM LIP LINE. TOLERATING VENT SETTINGS. SX'D SML AMT OF THIN TINGED SECRETIONS. VENT ALARMS AUDIBLE. ETT CUFF CHECKED. CONTINUE TO MONITOR. Addendum: 12/14/20 at 2028 by SHALA THRASHER RT Amended: Links added.
[2020-12-15] VITALS (42 sets, daily range): BP systolic 93–151; BP diastolic 53–85
--- NOTE | 2020-12-15 01:40 | NUR ---
CORPORATE DEVELOPMENT MANAGER OPENING NOTES: Rec'd pt in bed, intubated 7.5/25cm at the lip on mechanical ventilation. Tolerating settings well. SR on tele monitor. GTF Glucerna infusing at 50ml/hr. GENOVEVA midline patent and infusing Fentanyl at 1mcg and Versed at 7ml/hr. Borden catheter in place draining urine via gravity. Safety measures in place. Will continue to monitor. Addendum: 12/15/20 at 0142 by JAMA FERNANDEZ RN WRONG TIME DOCUMENTED!
[2020-12-15] MEDS: FENTANYL CITRAT IV 2,500 MCG in IV NS 0.9% 200 ML IV PRN (02:03)
[2020-12-15 05:15] LABS: BASOPHILS % (AUTO) 0.7 % (0.0-2.0); EOSINOPHILS % (AUTO) 4.2 % (0.0-6.0); HEMATOCRIT 28 % (39-51); HEMOGLOBIN 9.2 g/dL (13.5-17.5); LYMPHOCYTES # (AUTO) 0.6 /CMM (0.8-4.8); LYMPHOCYTES % (AUTO) 9.8 % (20.0-44.0); MEAN CORPUSCULAR HGB CONC 33 g/dl (31.0-36.0); MEAN CORPUSCULAR VOLUME 95 fL (80-96); MONOCYTES # (AUTO) 0.3 /CMM (0.1-1.30); MONOCYTES % (AUTO) 5.3 % (2.0-12.0); PLATELET COUNT (AUTO) 190 /CMM (150-450); RED BLOOD CELL COUNT(AUTO) 2.93 MIL/uL (4.5-6.0); WHITE BLOOD COUNT (AUTO) 6.3 K/uL (4.3-11.0)
[2020-12-15] MEDS: MIDAZOLAM HCL 100 MG in IV NS 0.9% 80 ML IV PRN ×2 (05:18→16:54)
[2020-12-15 05:34] LABS: CALCIUM, SERUM 8.8 mg/dL (8.5-10.1); CREATININE 1.7 mg/dL (0.6-1.3)
[2020-12-15] MEDS: BLOOD SUGAR DIAGNOSTIC 1 EACH STRIP IN SCH ×4 (06:12→23:43)
[2020-12-15] MEDS: INSULIN REGULAR, HUMAN 100 UNIT/ML 3 ML VIAL SQ PRN ×4 (06:13→23:47)
[2020-12-15] MEDS: PANTOPRAZOLE 40 MG VIAL IV SCH ×2 (08:27→16:52)
[2020-12-15] MEDS: HYDROCORTISONE SOD SUCCINATE 100 MG/2 ML VIAL IV SCH (08:27)
[2020-12-15] MEDS: AMIODARONE HCL 200 MG TABLET PO SCH ×3 (08:27→16:53)
[2020-12-15 08:40] LABS: ABG BASE EXCESS 2.4 mmol/L; ABG OXYGEN SATURATION 92.5 % (92.0-98.5); ABG PCO2 47.4 mmHg (35.0-45.0); ABG PH 7.387 (7.350-7.450); ABG PO2 64.5 mmHg (75.0-100.0); AaDO2 383.7 mmHg; COHb 0.1 % (0.5-1.5); MetHb 0.1 % (0.0-1.5); O2Hb 92.3 % (94.0-97.0); PEEP,BG 12 cm H2O; SITE, ABG Right Radial; VT, ABG 500 mL
[2020-12-15] MEDS: ACETAMINOPHEN 325 MG TABLET PO PRN (12:45)
[2020-12-15] MEDS: HEPARIN SODIUM, PORCINE 5000 UNITS/1 ML VIAL SQ SCH ×2 (13:03→21:18)
[2020-12-15] MEDS: GLUCERNA 1.2 1,000 ML BOTTLE NG PRN (16:54)
--- NOTE | 2020-12-15 20:00 | NUR ---
RN NOTES PATIENT IN BED INTUBATED. ON MECHANICAL VENT, TOLERATING SETTINGS WELL. TELE MONITOR ON, SR 80'S. WITH OG TUBE, GLUCERNA INFUSING @ 50ML/HR, NOTED WITH 50 ML RESIDUAL. GENOVEVA MIDLINE PATENT AND INFUSING FENTANYL @ 1MCG AND VERSED @ 7ML/HR. DEMARCO CATH IN PLACE DRAINING YELLOW URINE VIA GRAVITY. WILL CONTINUE TO MONITOR.
[2020-12-16] VITALS (84 sets, daily range): BP systolic 84–117; BP diastolic 48–78
[2020-12-16 05:03] LABS: BASOPHILS % (AUTO) 0.5 % (0.0-2.0); EOSINOPHILS % (AUTO) 3.3 % (0.0-6.0); HEMATOCRIT 26 % (39-51); HEMOGLOBIN 8.4 g/dL (13.5-17.5); LYMPHOCYTES # (AUTO) 0.5 /CMM (0.8-4.8); LYMPHOCYTES % (AUTO) 9.4 % (20.0-44.0); MEAN CORPUSCULAR HGB CONC 33 g/dl (31.0-36.0); MEAN CORPUSCULAR VOLUME 94 fL (80-96); MONOCYTES # (AUTO) 0.4 /CMM (0.1-1.30); MONOCYTES % (AUTO) 6.3 % (2.0-12.0); NEUTROPHILS # (AUTO) 4.7 /CMM (1.8-8.9); NEUTROPHILS % (AUTO) 80.5 % (43.0-81.0); PLATELET COUNT (AUTO) 226 /CMM (150-450); RED BLOOD CELL COUNT(AUTO) 2.72 MIL/uL (4.5-6.0); WHITE BLOOD COUNT (AUTO) 5.8 K/uL (4.3-11.0)
[2020-12-16 05:35] LABS: CALCIUM, SERUM 8.6 mg/dL (8.5-10.1); CREATININE 1.8 mg/dL (0.6-1.3); MAGNESIUM 1.8 mg/dL (1.8-2.4); PHOSPHORUS 3.3 mg/dL (2.5-4.9)
[2020-12-16] MEDS: BLOOD SUGAR DIAGNOSTIC 1 EACH STRIP IN SCH ×3 (05:48→17:27)
[2020-12-16] MEDS: INSULIN REGULAR, HUMAN 100 UNIT/ML 3 ML VIAL SQ PRN ×3 (05:50→17:36)
[2020-12-16] MEDS: MIDAZOLAM HCL 100 MG in IV NS 0.9% 80 ML IV PRN ×2 (06:19→10:03)
--- NOTE | 2020-12-16 07:01 | NUR ---
RN NOTES PATIENT IN BED INTUBATED. ON MECHANICAL VENT, TOLERATING SETTINGS WELL. TELE MONITOR ON, SR 70'S. WITH OG TUBE, GLUCERNA INFUSING @ 50ML/HR, NOTED WITH 50 ML RESIDUAL. GENOVEVA MIDLINE PATENT AND INFUSING FENTANYL @ 1MCG AND VERSED @ 7ML/HR. DEMARCO CATH IN PLACE DRAINING YELLOW URINE VIA GRAVITY, OUTPUT 805. ALL DUE MEDS GIVEN ORDERED. CARE RENDERED. WILL ENDORSED TO ONCOMING SHIFT.
--- NOTE | 2020-12-16 08:00 | NUR ---
RN NOTES Received pt in bed, EET 7.5/25cm at the lip on mechanical ventilation. Tolerating settings well. SR on tele monitor SR. keep hob elevated, suction, residual, and placement checked. infusing glucerna 50 ml/hr intact, also flashed with water 250 ml q6hr. GENOVEVA midline patent and infusing Fentanyl at 1mcg/kg/hr, and and Versed at 7ml/hr. Borden catheter in place draining urine via gravity. assist turn and reposition q 2 hr. Safety measures in place. Will continue to monitor.
[2020-12-16] MEDS: PANTOPRAZOLE 40 MG VIAL IV SCH ×2 (09:59→17:21)
[2020-12-16] MEDS: HYDROCORTISONE SOD SUCCINATE 100 MG/2 ML VIAL IV SCH (09:59)
--- NOTE | 2020-12-16 10:00 | NUR ---
rn notes patient has sacral open wound DTI, and discoloration, picture taken, wound consult triggered, wound cleaned ns , pat dry, applied oil emulsion, and covered add pad, fixed with paper tape.
[2020-12-16] MEDS: AMIODARONE HCL 200 MG TABLET PO SCH ×3 (10:01→17:27)
[2020-12-16] MEDS: HEPARIN SODIUM, PORCINE 5000 UNITS/1 ML VIAL SQ SCH ×2 (10:02→21:50)
[2020-12-16] MEDS: GLUCERNA 1.2 1,000 ML BOTTLE NG PRN (10:23)
[2020-12-16] MEDS: FENTANYL CITRAT IV 2,500 MCG in IV NS 0.9% 200 ML IV PRN (12:31)
--- NOTE | 2020-12-16 12:38 | NUR ---
rn notes bs-153 mg/dl coverage given. Patient sedated, suction, am care done, assist turn and reposition q2 hr.
[2020-12-16] MEDS: BISACODYL SUPP (10 MG) 10 MG/SUPP.RECT SUPP.RECT RC PRN (18:28)
--- NOTE | 2020-12-16 18:29 | NUR ---
rn notes administered rectal supp 10 mg for constipation, am care done, suction, administered scheduled medication, assist turn and reposition q 2 hr, infusing fentanyl 1 mcg/kg/hr, and Versed 7 mg/ml, infusing well. assist turn and reposition q 2 hr. Borden draining via gravity. endorsed oncoming nurse follow plan of care.
[2020-12-17] VITALS (25 sets, daily range): BP systolic 66–161; BP diastolic 39–85
[2020-12-17] MEDS: BLOOD SUGAR DIAGNOSTIC 1 EACH STRIP IN SCH ×5 (00:18→23:31)
[2020-12-17] MEDS: INSULIN REGULAR, HUMAN 100 UNIT/ML 3 ML VIAL SQ PRN ×5 (00:36→23:34)
[2020-12-17] MEDS: MIDAZOLAM HCL 100 MG in IV NS 0.9% 80 ML IV PRN ×2 (00:40→16:22)
[2020-12-17 04:19] LABS: BASOPHILS % (AUTO) 0.5 % (0.0-2.0); EOSINOPHILS % (AUTO) 3.1 % (0.0-6.0); HEMATOCRIT 25 % (39-51); HEMOGLOBIN 8.3 g/dL (13.5-17.5); LYMPHOCYTES # (AUTO) 0.6 /CMM (0.8-4.8); LYMPHOCYTES % (AUTO) 9.3 % (20.0-44.0); MEAN CORPUSCULAR HGB CONC 34 g/dl (31.0-36.0); MEAN CORPUSCULAR VOLUME 94 fL (80-96); MONOCYTES # (AUTO) 0.4 /CMM (0.1-1.30); MONOCYTES % (AUTO) 6.9 % (2.0-12.0); NEUTROPHILS % (AUTO) 80.2 % (43.0-81.0); PLATELET COUNT (AUTO) 231 /CMM (150-450); RED BLOOD CELL COUNT(AUTO) 2.62 MIL/uL (4.5-6.0); WHITE BLOOD COUNT (AUTO) 6.2 K/uL (4.3-11.0)
[2020-12-17 04:33] LABS: CALCIUM, SERUM 8.5 mg/dL (8.5-10.1); CREATININE 1.7 mg/dL (0.6-1.3); MAGNESIUM 1.9 mg/dL (1.8-2.4); POTASSIUM 4.2 mmol/L (3.5-5.1)
--- NOTE | 2020-12-17 07:20 | NUR ---
EDITOR & CO FOUNDER PT REMAINED INTUBATED; FIO2 TITRATED TO 60%. REMAINED ON VERSED AND FENTANYL.
[2020-12-17] MEDS: PANTOPRAZOLE 40 MG VIAL IV SCH ×2 (08:28→16:57)
[2020-12-17] MEDS: HYDROCORTISONE SOD SUCCINATE 100 MG/2 ML VIAL IV SCH (08:29)
[2020-12-17] MEDS: HEPARIN SODIUM, PORCINE 5000 UNITS/1 ML VIAL SQ SCH ×2 (08:30→21:06)
[2020-12-17 08:31] LABS: ABG BASE EXCESS 4.9 mmol/L; ABG OXYGEN SATURATION 97.7 % (92.0-98.5); ABG PH 7.401 (7.350-7.450); ABG PO2 109.1 mmHg (75.0-100.0); AaDO2 263.7 mmHg; COHb 0.4 % (0.5-1.5); MetHb 0.3 % (0.0-1.5); PEEP,BG 12 cm H2O; SITE, ABG Right Radial; VENT MODE, BG AC 20 VT 500 60%; VT, ABG 500 mL
[2020-12-17] MEDS: AMIODARONE HCL 200 MG TABLET PO SCH ×3 (08:31→16:57)
--- NOTE | 2020-12-17 08:38 | NUR ---
WOUND CARE CONSULT: REVIEWED CHART, NURSING DOCUMENTATION AND PHOTOS WHICH INDICATE SACRAL DEEP TISSUE INJURY WHICH IS IN EVOLUTION AND INCLUDES BUTTOCKS. PT NOTED TO HAVE MULTIPLE CO-MORBIDITIES INCLUDING COVID PNEUMONIA (CURRENTLY INTUBATED), ACUTE RENAL FAILURE, DIABETES AND GI BLEED. DUE TO MULTIPLE CO-MORBIDITIES, FURTHER SKIN BREAKDOWN MAY BE UNAVOIDABLE. RECOMMENDATIONS MADE FOR WOUND CARE AND SKIN PROTECTION. DISCUSSED WITH NURSING STAFF. [facility] IN AGREEMENT WITH PLAN OF CARE. Addendum: 12/17/20 at 0842 by DARWIN CROSS WNDNU PT CURRENTLY ON PRESSORS.
[2020-12-17] MEDS: GLUCERNA 1.2 1,000 ML BOTTLE NG PRN (12:43)
[2020-12-17] MEDS: FENTANYL CITRAT IV 2,500 MCG in IV NS 0.9% 200 ML IV PRN (16:22)
[2020-12-17] MEDS: ACETAMINOPHEN 325 MG TABLET PO PRN (19:44)
--- NOTE | 2020-12-17 20:21 | NUR ---
RECEIVED PT INTUBATED 7.5 ETT AT 25CM AT THE LIP. VENT SETTINGS AC 20, 500, 80%, +12. SX'D MOD AMT OF YELLOW SECRETIONS. ETT CUFF CHECKED. VENT ALARMS AUDIBLE. CONTINUE TO MONITOR. Addendum: 12/17/20 at 2021 by SHALA THRASHER RT Amended: Links added.
--- NOTE | 2020-12-17 20:30 | NUR ---
KST OPERATOR NOTE PT IN BED SEDATED. ON VENT/ETT TOLERATING THE SETTINGS WELL. NO DISTRESS OR DISCOMFORT NOTED. NO S/S OF PAIN NOTED. EARLIER AT 1944 NOTED PT WITH TEMP 102.5 TYELNOL 650 MG VIA OGT GIVEN. ALSO BODY COOLING MEASURE APPLIED. F/C INTACT AND PATENT DRAINING YELLOWISH COLOR URINE. OGT INFUSING GLUCERNA AT 50 ML/HR. GENOVEVA MIDLINE GETTING FENTANYL 1 MCG AND VERSAD 7 MCG NO S/S OF INFILTRATION NOTED. KEPT HIM DRY AND CLEAN. REPOSITION HIM FOR SKIN MANAGEMENT. SIDE RAILS UP X 3 AND CALL LIGHT WITHIN REACH. CONTINUE TO MONITOR HIM.
--- NOTE | 2020-12-17 21:39 | NUR ---
CLINICAL TRIALS SPECIALIST NOTE PT B/P REMAIN LOW 71/44, LOWER THE VERSED RATE TO 6 MG/HR. CONTINUE TO MONITOR HIM .
[2020-12-18] VITALS (42 sets, daily range): BP systolic 81–134; BP diastolic 45–85
[2020-12-18 04:27] LABS: BASOPHILS % (AUTO) 0.2 % (0.0-2.0); EOSINOPHILS % (AUTO) 0.1 % (0.0-6.0); HEMATOCRIT 25 % (39-51); HEMOGLOBIN 8.4 g/dL (13.5-17.5); LYMPHOCYTES # (AUTO) 0.5 /CMM (0.8-4.8); LYMPHOCYTES % (AUTO) 5.5 % (20.0-44.0); MEAN CORPUSCULAR HGB CONC 33 g/dl (31.0-36.0); MEAN CORPUSCULAR VOLUME 94 fL (80-96); MONOCYTES # (AUTO) 0.5 /CMM (0.1-1.30); MONOCYTES % (AUTO) 5.7 % (2.0-12.0); NEUTROPHILS # (AUTO) 7.4 /CMM (1.8-8.9); NEUTROPHILS % (AUTO) 88.5 % (43.0-81.0); PLATELET COUNT (AUTO) 270 /CMM (150-450); RED BLOOD CELL COUNT(AUTO) 2.67 MIL/uL (4.5-6.0); WHITE BLOOD COUNT (AUTO) 8.3 K/uL (4.3-11.0)
[2020-12-18 04:41] LABS: CALCIUM, SERUM 8.8 mg/dL (8.5-10.1); CREATININE 2.4 mg/dL (0.6-1.3); POTASSIUM 5.5 mmol/L (3.5-5.1)
[2020-12-18] MEDS: BLOOD SUGAR DIAGNOSTIC 1 EACH STRIP IN SCH ×4 (05:50→23:23)
[2020-12-18] MEDS: INSULIN REGULAR, HUMAN 100 UNIT/ML 3 ML VIAL SQ PRN ×4 (05:56→23:23)
--- NOTE | 2020-12-18 07:09 | NUR ---
FIBRE OPTICS JOINTER NOTE NO CHANGE IN CONDITION PT REMAIN SEDATED. NO FEVER NOTED AT THIS TIME. ENDORSED TO DAY SHIFT NURSE NOREEN FOR CONTINUE TO CARE.
--- NOTE | 2020-12-18 07:18 | NUR ---
RECEIVED PATIENT IN BED. NO ACUTE DISTRESS NOTED. PATIENT SEDATED ON VERSED, FENTANYL. PATIENT ON MECHANICAL VENTILATOR, TOLERATING SETTINGS WELL (93-95% O2 SATURATION). PATIENT ON MANAGER TEST, NSR NOTED WITH HR IN 80S. PATIENT OGT IN PLACE, INTACT. PATIENT FC IN PLACE, INTACT, DRAINING TO GRAVITY. PATIENT GENOVEVA MIDLINE IN PLACE, INTACT, PATENT. PATIENT SAFETY MEASURES MAINTAINED. WILL CONTINUE TO MONITOR.
[2020-12-18] MEDS: HYDROCORTISONE SOD SUCCINATE 100 MG/2 ML VIAL IV SCH (08:16)
[2020-12-18] MEDS: PANTOPRAZOLE 40 MG VIAL IV SCH ×2 (08:16→17:13)
[2020-12-18] MEDS: HEPARIN SODIUM, PORCINE 5000 UNITS/1 ML VIAL SQ SCH ×2 (08:17→20:50)
[2020-12-18] MEDS: AMIODARONE HCL 200 MG TABLET PO SCH ×4 (08:17→17:14)
[2020-12-18] MEDS: MIDAZOLAM HCL 100 MG in IV NS 0.9% 80 ML IV PRN ×2 (08:21→23:40)
[2020-12-18] MEDS ORDERED: SODIUM POLYSTYRENE SULFONATE 15 G/60 ML BOTTLE PO ONE (08:30)
[2020-12-18 08:46] LABS: ABG OXYGEN SATURATION 96.1 % (92.0-98.5); ABG PCO2 46.1 mmHg (35.0-45.0); ABG PH 7.466 (7.350-7.450); ABG PO2 80.3 mmHg (75.0-100.0); AaDO2 224.3 mmHg; COHb 0.4 % (0.5-1.5); O2Hb 95.7 % (94.0-97.0); SITE, ABG Right Radial; VT, ABG 500 mL
[2020-12-18] MEDS: GLUCERNA 1.2 1,000 ML BOTTLE NG PRN (09:59)
[2020-12-18 11:43] LABS: PEEP,BG 12 cm H2O
--- NOTE | 2020-12-18 19:15 | NUR ---
RN NOTE RECEIVED PATIENT IN BED, SEDATED, IN NO S/SX OF ACUTE DISTRESS AT THIS TIME. PATIENT ON ET TUBE CONNECTED TO MECHANICAL VENT WITH SETTINGS PRESCRIBED, SATURATION AT 96%, SR ON THE MONITOR, HR IS 81. NOTED OG TUBE INTACT, PLACEMENT WAS CONFIRMED BY ASPIRATION AND AUSCULTATION, WITH GLUCERNA REGULATED AT 50 ML/HR. GENOVEVA MIDLINE INTACT, BOTH HUBS PATENT AND FLUSHING WELL, NO S/S OF INFECTION, FENTANYL INFUSING AT 1 MCG/KG/HR, AND VERSED AT 7 MG/HR. DEMARCO CATHETER CONNECTED TO URINE BAG IN PLACE DRAINING TO A CLEAR YELLOW URINE. SAFETY MEASURES HAVE BEEN PROVIDED AND IMPLEMENTED. PATIENT BED ALARM IS ON. HEAD OF BED ELEVATED. BED IS LOCKED, IN LOWEST POSITION AND SIDE RAILS UP. CALL LIGHT WITHIN REACH OF THE PATIENT. WILL CONTINUE TO MONITOR AND REASSESS FOR ANY CHANGES.
[2020-12-19] VITALS (43 sets, daily range): BP systolic 91–145; BP diastolic 49–86
[2020-12-19] MEDS: FENTANYL CITRAT IV 2,500 MCG in IV NS 0.9% 200 ML IV PRN (05:06)
[2020-12-19] MEDS: BLOOD SUGAR DIAGNOSTIC 1 EACH STRIP IN SCH ×4 (06:27→23:32)
[2020-12-19] MEDS: INSULIN REGULAR, HUMAN 100 UNIT/ML 3 ML VIAL SQ PRN ×4 (06:29→23:34)
[2020-12-19] MEDS: PANTOPRAZOLE 40 MG VIAL IV SCH ×2 (09:16→16:33)
[2020-12-19] MEDS: AMIODARONE HCL 200 MG TABLET PO SCH ×2 (09:17→16:33)
[2020-12-19] MEDS: HYDROCORTISONE SOD SUCCINATE 100 MG/2 ML VIAL IV SCH (09:17)
[2020-12-19] MEDS: HEPARIN SODIUM, PORCINE 5000 UNITS/1 ML VIAL SQ SCH ×2 (09:20→20:06)
[2020-12-19 09:28] LABS: CALCIUM, SERUM 8.9 mg/dL (8.5-10.1); CREATININE 1.9 mg/dL (0.6-1.3); POTASSIUM 3.8 mmol/L (3.5-5.1)
[2020-12-19] MEDS: GLUCERNA 1.2 1,000 ML BOTTLE NG PRN (15:04)
[2020-12-19] MEDS: MIDAZOLAM HCL 100 MG in IV NS 0.9% 80 ML IV PRN (15:04)
--- NOTE | 2020-12-19 19:20 | NUR ---
ASSISTANT PLANT MANAGER OPENING NOTES: Rec'd pt in bed intubated and sedated 7.5/25cm at the lip. Tolerating vent settings well. No resp distress noted. ST on tele monitor. OGT in place w/ Glucerna infusing at 50ml/hr. GENOVEVA midline in place w/ Versed infusing at 7mg. Borden catheter in place patent and draining urine via gravity. Safety measures in place. Will continue to monitor
[2020-12-19] MEDS: ACETAMINOPHEN 325 MG TABLET PO PRN (20:02)
--- NOTE | 2020-12-19 20:11 | NUR ---
USED CAR MANAGER NOTE: Pt noted w/ temp of 102.9 axillary. Tylenol 650mg PRN given as ordered. Cooling measures in place. Mohinder continue to monitor.
[2020-12-20] VITALS (29 sets, daily range): BP systolic 85–174; BP diastolic 48–102
[2020-12-20 05:02] LABS: CALCIUM, SERUM 8.5 mg/dL (8.5-10.1); MAGNESIUM 1.8 mg/dL (1.8-2.4); PHOSPHORUS 3.2 mg/dL (2.5-4.9)
[2020-12-20 05:06] LABS: BASOPHILS % (AUTO) 0.5 % (0.0-2.0); HEMATOCRIT 27 % (39-51); LYMPHOCYTES # (AUTO) 0.6 /CMM (0.8-4.8); LYMPHOCYTES % (AUTO) 6.5 % (20.0-44.0); MEAN CORPUSCULAR HGB CONC 33 g/dl (31.0-36.0); MEAN CORPUSCULAR VOLUME 93 fL (80-96); MONOCYTES # (AUTO) 0.4 /CMM (0.1-1.30); MONOCYTES % (AUTO) 4.5 % (2.0-12.0); NEUTROPHILS # (AUTO) 8.3 /CMM (1.8-8.9); NEUTROPHILS % (AUTO) 87.5 % (43.0-81.0); PLATELET COUNT (AUTO) 351 /CMM (150-450); RED BLOOD CELL COUNT(AUTO) 2.92 MIL/uL (4.5-6.0); WHITE BLOOD COUNT (AUTO) 9.5 K/uL (4.3-11.0)
[2020-12-20] MEDS: BLOOD SUGAR DIAGNOSTIC 1 EACH STRIP IN SCH ×4 (05:19→23:26)
[2020-12-20] MEDS: INSULIN REGULAR, HUMAN 100 UNIT/ML 3 ML VIAL SQ PRN ×3 (05:23→18:57)
[2020-12-20] MEDS: MIDAZOLAM HCL 100 MG in IV NS 0.9% 80 ML IV PRN (05:37)
[2020-12-20] MEDS: HYDROCORTISONE SOD SUCCINATE 100 MG/2 ML VIAL IV SCH (08:30)
[2020-12-20] MEDS: PANTOPRAZOLE 40 MG VIAL IV SCH ×2 (08:30→16:34)
[2020-12-20] MEDS: HEPARIN SODIUM, PORCINE 5000 UNITS/1 ML VIAL SQ SCH ×2 (08:31→20:32)
[2020-12-20] MEDS: AMIODARONE HCL 200 MG TABLET PO SCH ×2 (08:31→16:34)
[2020-12-20] MEDS: GLUCERNA 1.2 1,000 ML BOTTLE NG PRN ×2 (10:56→14:56)
--- NOTE | 2020-12-20 19:00 | NUR ---
RN NOTE RECEIVED INTUBATED. NOTED WITH SLIGHT AGITATION AND TO BE FIGHTING THE VENT, WILL RESUME SEDATION (VERSED DRIP).PATIENT ON MECHANICAL VENT; SETTINGS PRESCRIBED; PT TOLERATED WELL. AMBU BAG AT BED SIDE ALARMS SET PER PROTOCOL AND AUDIBLE. VENT PLUGGED IN TO RED OUTLET. NO DISTRESS NOTED. NOTED OGT IN PLACED. PLACEMENT VERIFIED WITH AUSCULTATION AND ASPIRATION. NO RESIDUAL TAKEN AT THIS TIME. TUBE FEEDING RUNNING ORDERED. NOTED WITH RIGHT UPPER ARM MIDLINE. PATENT, INTACT AND FLUSHING WELL; NO S/S OF INFECTION OR INFILTRATION. DEMARCO CATH IN PLACE WITH URINE DRAINING VIA GRAVITY. BILATERAL SOFT WRIST RESTRAINTS IN PLACE ORDERED FOR SAFETY. WILL DO VISUAL CHECKS Q15M. SAFETY MEASURES HAVE BEEN PROVIDED AND IMPLEMENTED. PATIENT BED ALARM IS ON. HEAD OF BED ELEVATED. BED IS LOCKED, IN LOWEST POSITION AND SIDE RAILS UP. WILL CONTINUE TO MONITOR AND REASSESS FOR ANY CHANGES AND WILL CARRY OUT ANY ONGOING AND ACTIVE MD ORDER.
--- NOTE | 2020-12-20 20:22 | NUR ---
ARI NORIEGA RT AT BEDSIDE INCREASED FIO2 TO 60%. Addendum: 12/20/20 at 2236 by SHANT BRIGHT RN RT AT BEDSIDE INCREASED FIO2 TO 80% DUE TO O2 SATURATION 85-87%.
[2020-12-20] MEDS: HYDROCODONE/APAP 5/325MG TABLET PO PRN (22:12)
[2020-12-20] MEDS: ACETAMINOPHEN 325 MG TABLET PO PRN (22:18)
--- NOTE | 2020-12-20 23:00 | NUR ---
RN NOTE COMPLETE BED BATH AND LINEN CHANGE COMPLETED, PT TOLERATED WELL. VITAL SIGNS STABLE VIA BEDSIDE MONITOR. PT STILL SLIGHTLY AGITATED AND FIGHTING VENT. ONGOING TITRATION OF VERSED DRIP. WILL CONTINUE TO MONITOR.
[2020-12-21] VITALS (48 sets, daily range): BP systolic 95–159; BP diastolic 49–102
--- NOTE | 2020-12-21 02:00 | NUR ---
RN NOTE PATIENT REMAINS IN NO ACUTE RESPIRATORY DISTRESS AT THIS TIME, NO CHANGES TO CONDITION/STATUS. WILL CONTINUE TO MONITOR AND REASSESS FOR ANY CHANGES THROUGHOUT THE SHIFT
[2020-12-21] MEDS: BLOOD SUGAR DIAGNOSTIC 1 EACH STRIP IN SCH ×3 (05:10→18:04)
[2020-12-21] MEDS: INSULIN REGULAR, HUMAN 100 UNIT/ML 3 ML VIAL SQ PRN ×4 (05:12→23:30)
[2020-12-21 05:22] LABS: BASOPHILS % (AUTO) 0.3 % (0.0-2.0); EOSINOPHILS % (AUTO) 0.3 % (0.0-6.0); HEMATOCRIT 23 % (39-51); HEMOGLOBIN 7.8 g/dL (13.5-17.5); LYMPHOCYTES # (AUTO) 0.4 /CMM (0.8-4.8); LYMPHOCYTES % (AUTO) 4.9 % (20.0-44.0); MEAN CORPUSCULAR HGB CONC 34 g/dl (31.0-36.0); MEAN CORPUSCULAR VOLUME 92 fL (80-96); MONOCYTES # (AUTO) 0.3 /CMM (0.1-1.30); MONOCYTES % (AUTO) 3.7 % (2.0-12.0); NEUTROPHILS # (AUTO) 8.1 /CMM (1.8-8.9); NEUTROPHILS % (AUTO) 90.8 % (43.0-81.0); PLATELET COUNT (AUTO) 286 /CMM (150-450); RED BLOOD CELL COUNT(AUTO) 2.51 MIL/uL (4.5-6.0); WHITE BLOOD COUNT (AUTO) 8.9 K/uL (4.3-11.0)
[2020-12-21] MEDS: MIDAZOLAM HCL 100 MG in IV NS 0.9% 80 ML IV PRN ×2 (05:37→21:10)
[2020-12-21 05:41] LABS: CALCIUM, SERUM 8.3 mg/dL (8.5-10.1); CREATININE 1.8 mg/dL (0.6-1.3)
--- NOTE | 2020-12-21 06:42 | NUR ---
RN NOTE PATIENT REMAINS IN ROOM IN NO SIGNS OF RESPIRATORY DISTRESS; STILL INTUBATED AND ON VENT SETTING ORDERED. SEDATED ON VERSED DRIP ORDERED. SAFETY MEASURES IMPLEMENTED, BED IN LOWEST POSITION, LOCKED, SIDE RAILS UP, ALL NEEDS AND ORDERS ADDRESSED DURING THE SHIFT. IV ACCESS MAINTAINED INTACT, SECURED AND FLUSHING WELL. ALL DUE MEDS ADMINISTERED ORDERED; OGT PATENT AND IN PLACE VERIFIED BY AUSCULTATION AND ASPIRATION. MINIMAL RESIDUAL NOTED. ONGOING TUBE FEEDING ORDERED. DEMARCO CATHETER PATENT AND IN PLACE DRAINING URINE. BILATERAL SOFT MITTEN RESTRAINS IN PLACE ORDERED FOR SAFETY. VISUAL CHECKED DONE Q15M. PATIENT KEPT CLEAN AND COMFORTABLE THROUGHOUT THE SHIFT. ALL NEEDS MET AND ATTENDED TO. WILL ENDORSE TO MORNING RN FOR EMMANULE.
[2020-12-21] MEDS: HYDROCORTISONE SOD SUCCINATE 100 MG/2 ML VIAL IV SCH (08:16)
[2020-12-21] MEDS: PANTOPRAZOLE 40 MG VIAL IV SCH ×2 (08:16→17:32)
[2020-12-21] MEDS: AMIODARONE HCL 200 MG TABLET PO SCH ×2 (08:17→17:33)
[2020-12-21] MEDS: HEPARIN SODIUM, PORCINE 5000 UNITS/1 ML VIAL SQ SCH ×2 (08:18→20:31)
[2020-12-21 08:43] LABS: ABG BASE EXCESS 10.4 mmol/L; ABG OXYGEN SATURATION 95.4 % (92.0-98.5); ABG PCO2 41.4 mmHg (35.0-45.0); ABG PH 7.532 (7.350-7.450); ABG PO2 76.3 mmHg (75.0-100.0); AaDO2 378.3 mmHg; COHb 0.7 % (0.5-1.5); O2Hb 94.7 % (94.0-97.0); PEEP,BG 5 cm H2O; SITE, ABG Right Radial; VT, ABG 500 mL
[2020-12-21] MEDS: GLUCERNA 1.2 1,000 ML BOTTLE NG PRN (11:41)
[2020-12-21 15:01] LABS: ABG BASE EXCESS 10.1 mmol/L; ABG OXYGEN SATURATION 96.8 % (92.0-98.5); ABG PCO2 44.7 mmHg (35.0-45.0); ABG PH 7.503 (7.350-7.450); ABG PO2 91.9 mmHg (75.0-100.0); AaDO2 359.2 mmHg; O2Hb 96.8 % (94.0-97.0); PEEP,BG 5 cm H2O; SITE, ABG Right Radial; VENT MODE, BG ac 2:1 ratio; VT, ABG 450 mL
--- NOTE | 2020-12-21 19:16 | NUR ---
RN NOTE RECEIVED SEDATED AND INTUBATED. ON VERSED DRIP AT 7MG. .PATIENT ON MECHANICAL VENT; SETTINGS PRESCRIBED; PT TOLERATED WELL. AMBU BAG AT BED SIDE ALARMS SET PER PROTOCOL AND AUDIBLE. VENT PLUGGED IN TO RED OUTLET. NO DISTRESS NOTED. NOTED OGT IN PLACED. PLACEMENT VERIFIED WITH AUSCULTATION AND ASPIRATION. NO RESIDUAL TAKEN AT THIS TIME. TUBE FEEDING RUNNING ORDERED. NOTED WITH RIGHT UPPER ARM MIDLINE. PATENT, INTACT AND FLUSHING WELL; NO S/S OF INFECTION OR INFILTRATION. DEMARCO CATH IN PLACE WITH URINE DRAINING VIA GRAVITY. NOTED WITH ORDER TO TRANSFUSE 1 PRBCS AT THIS TIME. WITH TEMPERATURE OF 100.5. PER MD, DO NOT TRANSFUSE UNTIL TEMPERATURE IS STABLE. WILL ADMINISTER TYLENOL AND APPLY COOLING MEASURES. WILL MONITOR TEMPERATURE THROUGHOUT SHIFT. SAFETY MEASURES HAVE BEEN PROVIDED AND IMPLEMENTED. PATIENT BED ALARM IS ON. HEAD OF BED ELEVATED. BED IS LOCKED, IN LOWEST POSITION AND SIDE RAILS UP. WILL CONTINUE TO MONITOR AND REASSESS FOR ANY CHANGES AND WILL CARRY OUT ANY ONGOING AND ACTIVE MD ORDER.
[2020-12-21] MEDS: ACETAMINOPHEN 325 MG TABLET PO PRN (19:34)
--- NOTE | 2020-12-21 21:30 | NUR ---
RN NOTE TEMPERATURE RECHECKED. 100.2 AX. 100 ORAL. COOLING MEASURES STILL IN PLACE, WILL CONTINUE TO MONITOR.
[2020-12-22] VITALS (55 sets, daily range): BP systolic 83–131; BP diastolic 41–79
[2020-12-22] MEDS: BLOOD SUGAR DIAGNOSTIC 1 EACH STRIP IN SCH ×4 (00:04→18:35)
--- NOTE | 2020-12-22 02:00 | NUR ---
RN NOTE COMPLETE BED BATH/LINEN CHANGE AND AM CARE COMPLETED. PT TOLERATED WELL. NO SIGNS OF ACUTE DISTRESS, OGT PLACEMENT VERIFIED BY AUSCULTATION BEFORE RESUMPTION OF TUBE FEEDING. WILL CONTINUE TO MONITOR.
[2020-12-22] MEDS: ACETAMINOPHEN 325 MG TABLET PO PRN (04:40)
[2020-12-22 05:21] LABS: BASOPHILS % (AUTO) 0.3 % (0.0-2.0); EOSINOPHILS % (AUTO) 0.9 % (0.0-6.0); HEMATOCRIT 22 % (39-51); HEMOGLOBIN 7.4 g/dL (13.5-17.5); LYMPHOCYTES # (AUTO) 0.7 /CMM (0.8-4.8); LYMPHOCYTES % (AUTO) 8.3 % (20.0-44.0); MEAN CORPUSCULAR HGB CONC 34 g/dl (31.0-36.0); MEAN CORPUSCULAR VOLUME 91 fL (80-96); MONOCYTES # (AUTO) 0.5 /CMM (0.1-1.30); MONOCYTES % (AUTO) 5.7 % (2.0-12.0); NEUTROPHILS # (AUTO) 6.9 /CMM (1.8-8.9); NEUTROPHILS % (AUTO) 84.8 % (43.0-81.0); PLATELET COUNT (AUTO) 292 /CMM (150-450); RED BLOOD CELL COUNT(AUTO) 2.38 MIL/uL (4.5-6.0); WHITE BLOOD COUNT (AUTO) 8.1 K/uL (4.3-11.0)
[2020-12-22 05:39] LABS: CALCIUM, SERUM 8.4 mg/dL (8.5-10.1); CREATININE 1.8 mg/dL (0.6-1.3); MAGNESIUM 2.1 mg/dL (1.8-2.4); PHOSPHORUS 3.3 mg/dL (2.5-4.9); POTASSIUM 3.9 mmol/L (3.5-5.1)
--- NOTE | 2020-12-22 06:32 | NUR ---
RN NOTE TEMPERATURE RECHECKED POST ADMINISTRATION OF ACETAMINOPHEN. 99.6 AXILLARY. WILL CONTINUE TO MONITOR.
--- NOTE | 2020-12-22 07:12 | NUR ---
RN NOTE PATIENT REMAINS IN ROOM IN NO SIGNS OF RESPIRATORY DISTRESS; STILL INTUBATED AND ON VENT SETTING ORDERED. SEDATED ON VERSED DRIP. SAFETY MEASURES IMPLEMENTED, BED IN LOWEST POSITION, LOCKED, SIDE RAILS UP, PT IS PENDING 1 UNIT OF PRBCS. IV ACCESS MAINTAINED INTACT, SECURED AND FLUSHING WELL. ALL DUE MEDS ADMINISTERED ORDERED; OGT PATENT AND IN PLACE VERIFIED BY AUSCULTATION AND ASPIRATION. MINIMAL RESIDUAL NOTED. ONGOING TUBE FEEDING ORDERED. DEMARCO CATHETER PATENT AND IN PLACE DRAINING URINE. PATIENT KEPT CLEAN AND COMFORTABLE THROUGHOUT THE SHIFT. ALL NEEDS MET AND ATTENDED TO. WILL ENDORSE TO MORNING RN FOR CONTINUTATION OF CARE
[2020-12-22 08:15] LABS: ABG BASE EXCESS 8.7 mmol/L; ABG OXYGEN SATURATION 94.8 % (92.0-98.5); ABG PCO2 45.7 mmHg (35.0-45.0); ABG PH 7.478 (7.350-7.450); ABG PO2 74.3 mmHg (75.0-100.0); AaDO2 230.8 mmHg; COHb 0.8 % (0.5-1.5); MetHb 0.3 % (0.0-1.5); O2Hb 93.8 % (94.0-97.0); PEEP,BG 5 cm H2O; SITE, ABG Right Radial; VENT MODE, BG AC 2:1 I:E; VT, ABG 450 mL
--- NOTE | 2020-12-22 08:59 | NUR ---
RN NOTES PER DR PARHAM START PRECEDEX 0.4 TITRATED UP, AND TITRATE DOWN VERSED. ORDER PATIENT AND CARRIED OUT.
--- NOTE | 2020-12-22 08:59 | NUR ---
RN NOTES PER MARKETING COORDINATOR TITRATE DOWN VERSED DOSE , TO ORDER TAKEN AND CARRIED OUT. NOW PATIENT ON VERSED 6MG/HR.
[2020-12-22] MEDS: PANTOPRAZOLE 40 MG VIAL IV SCH ×2 (09:04→18:40)
[2020-12-22] MEDS: HYDROCORTISONE SOD SUCCINATE 100 MG/2 ML VIAL IV SCH (09:04)
[2020-12-22] MEDS: AMIODARONE HCL 200 MG TABLET PO SCH ×2 (09:04→18:36)
[2020-12-22] MEDS: PRECEDEX 400 MCG/100 ML BOTTLE 100 ML IV PRN ×2 (09:48→18:35)
[2020-12-22] MEDS: MIDAZOLAM HCL 100 MG in IV NS 0.9% 80 ML IV PRN (11:42)
[2020-12-22] MEDS: INSULIN REGULAR, HUMAN 100 UNIT/ML 3 ML VIAL SQ PRN ×2 (13:04→19:11)
[2020-12-22] MEDS: GLUCERNA 1.2 1,000 ML BOTTLE NG PRN (13:06)
--- NOTE | 2020-12-22 16:24 | NUR ---
rn notes started one units of rbc transfusion at this time per md order v/s taken t-97.4, p-59, r-21, bp 93/56. patient intubated, and sedated by versed, no acute respiratory distress. will monitoring.
--- NOTE | 2020-12-22 16:45 | NUR ---
rn notes v/s wnl, t-97.5, bp 93/57, p-62, no acute respiratory distress, continued infusion of blood, increased 125 ml/hr.
--- NOTE | 2020-12-22 19:18 | NUR ---
PT REC'D ORALLY INTUBATED VIA ETT 7.5 SECURED @ 25 [facility] WITH THE SETTINGS OF AC 20, 450,50%,PEEP 5 ET TUBE SECURED AND PATENT. BILATERAL CHEST RISE NOTED. SX DONE . ALARMS ARE SET AND AUDIBLE. VENT PLUGGED INTO RED OUTLET. AMBU BAG@ BEDSIDE. WILL CONTINUE TO MONITOR T/O THE SHIFT.
--- NOTE | 2020-12-22 19:30 | NUR ---
EN NOTES BLOOD TRANSFUSION FINISHED AT THIS TIME, PATIENT STABLE V/S WNL, NO ACUTE RESPIRATORY DISTRESS. BS-164 MG/DL. DUE MEDICATION ADMINISTERED. PM CARE DOME,SUCTION. ASSIST TURN AND REPOSTION Q2 HR, OGT RUNNING GLUCERNA 50 ML/HR INTACT. HOB ELEVATED FOR ASPIRATION PRECAUTION, DEMARCO DRAINING YELLOW OUTPUT. ENDORSED ONCOMING NURSE FOLLOW PLAN OF CARE.
[2020-12-23] VITALS (47 sets, daily range): BP systolic 70–177; BP diastolic 39–95
[2020-12-23] MEDS: PRECEDEX 400 MCG/100 ML BOTTLE 100 ML IV PRN ×7 (00:01→21:36)
[2020-12-23] MEDS: BLOOD SUGAR DIAGNOSTIC 1 EACH STRIP IN SCH ×4 (00:24→18:04)
[2020-12-23 05:12] LABS: CALCIUM, SERUM 8.8 mg/dL (8.5-10.1); CREATININE 1.7 mg/dL (0.6-1.3); POTASSIUM 4.2 mmol/L (3.5-5.1)
[2020-12-23 05:17] LABS: BASOPHILS % (AUTO) 0.3 % (0.0-2.0); EOSINOPHILS % (AUTO) 1.5 % (0.0-6.0); HEMATOCRIT 27 % (39-51); HEMOGLOBIN 9.1 g/dL (13.5-17.5); LYMPHOCYTES # (AUTO) 0.8 /CMM (0.8-4.8); LYMPHOCYTES % (AUTO) 10.2 % (20.0-44.0); MEAN CORPUSCULAR HGB CONC 34 g/dl (31.0-36.0); MEAN CORPUSCULAR VOLUME 89 fL (80-96); MONOCYTES # (AUTO) 0.4 /CMM (0.1-1.30); MONOCYTES % (AUTO) 5.9 % (2.0-12.0); NEUTROPHILS # (AUTO) 6.1 /CMM (1.8-8.9); NEUTROPHILS % (AUTO) 82.1 % (43.0-81.0); PLATELET COUNT (AUTO) 285 /CMM (150-450); RED BLOOD CELL COUNT(AUTO) 3.06 MIL/uL (4.5-6.0); WHITE BLOOD COUNT (AUTO) 7.4 K/uL (4.3-11.0)
[2020-12-23] MEDS: INSULIN REGULAR, HUMAN 100 UNIT/ML 3 ML VIAL SQ PRN ×4 (06:06→18:05)
--- NOTE | 2020-12-23 08:00 | NUR ---
RN NOTE PATIENT HAS NO SIGNS OF RESPIRATORY DISTRESS; STILL INTUBATED AND ON VENT SETTING TOLERATED. SEDATED ON VERSED DRIP 3.5, AND PRECEDEX 1.5 MCG/KG/HR. IV ACCESS MAINTAINED INTACT, SECURED AND FLUSHING WELL. GOAL IS TITRATE VERSED DOWN FOR EXTUBATION TOMORROW. ALL DUE MEDS ADMINISTERED ORDERED; OGT PATENT AND IN PLACE VERIFIED BY AUSCULTATION AND ASPIRATION. MINIMAL RESIDUAL NOTED, GLUCERNA 50 CC/HR. DEMARCO CATHETER PATENT AND IN PLACE DRAINING URINE BY GRAVITY. ALL NEEDS MET AND ATTENDED TO. WILL MONITORING.
[2020-12-23] MEDS: PANTOPRAZOLE 40 MG VIAL IV SCH ×2 (09:15→16:43)
[2020-12-23] MEDS: HYDROCORTISONE SOD SUCCINATE 100 MG/2 ML VIAL IV SCH (09:15)
[2020-12-23] MEDS: AMIODARONE HCL 200 MG TABLET PO SCH ×2 (09:15→16:43)
[2020-12-23] MEDS: MIDAZOLAM HCL 100 MG in IV NS 0.9% 80 ML IV PRN (10:39)
[2020-12-23] MEDS: GLUCERNA 1.2 1,000 ML BOTTLE NG PRN (13:34)
--- NOTE | 2020-12-23 15:00 | NUR ---
RN NOTES REPORT RECEIVED FROM ARI BROUSSARD. PATIENT IS IN NO SIGNS OF DISTRESS, SAFETY MEASURES IN PLACE, WILL CONTINUE WITH PLAN OF CARE.
[2020-12-23] MEDS: hydrALAZINE HCL IV 20 MG VIAL IV PRN (18:00)
[2020-12-23 19:32] LABS: ABG BASE EXCESS 1.7 mmol/L; ABG OXYGEN SATURATION 87.5 % (92.0-98.5); ABG PCO2 51.3 mmHg (35.0-45.0); ABG PH 7.354 (7.350-7.450); ABG PO2 57.4 mmHg (75.0-100.0); AaDO2 241.4 mmHg; COHb 0.5 % (0.5-1.5); MetHb 0.6 % (0.0-1.5); O2Hb 86.5 % (94.0-97.0); PEEP,BG 5 cm H2O; SITE, ABG Right Radial
--- NOTE | 2020-12-23 19:33 | NUR ---
STAT ABG DONE. NOTIFIED RN WITH THE RESULT. FIO2 INCREASED.
[2020-12-23] MEDS: ACETAMINOPHEN 325 MG TABLET PO PRN (20:03)
--- NOTE | 2020-12-23 20:34 | NUR ---
RECEIVED PT INTUBATED ON VENT. 7.5 ETT AT 25CM LIP LINE. ETT CUFF CLIPPER AND TURNER. VENT ALARMS SET AND AUDIBLE. VENT PLUGGED INTO RED OUTLET. CONTINUE TO MONITOR. Addendum: 12/23/20 at 2041 by SHALA THRASHER RT Amended: Links added.
--- NOTE | 2020-12-23 20:45 | NUR ---
VOLUME CHANGED TO [address] FISHER. RN NOTIFIED.
[2020-12-23] MEDS ORDERED: NOREPINEPHRINE 8MG/250ML RTU 250 ML IV ONE (23:04)
[2020-12-23] MEDS: NOREPINEPHRINE 8 MG in IV NS 0.9% 242 ML IV PRN (23:11)
[2020-12-24] VITALS (48 sets, daily range): BP systolic 77–160; BP diastolic 45–88
[2020-12-24] MEDS: BLOOD SUGAR DIAGNOSTIC 1 EACH STRIP IN SCH ×4 (01:01→18:21)
[2020-12-24] MEDS: INSULIN REGULAR, HUMAN 100 UNIT/ML 3 ML VIAL SQ PRN ×4 (01:02→18:21)
[2020-12-24] MEDS: PRECEDEX 400 MCG/100 ML BOTTLE 100 ML IV PRN ×7 (01:07→23:15)
[2020-12-24 04:40] LABS: BASOPHILS % (AUTO) 0.1 % (0.0-2.0); EOSINOPHILS % (AUTO) 0.1 % (0.0-6.0); HEMATOCRIT 30 % (39-51); LYMPHOCYTES # (AUTO) 0.9 /CMM (0.8-4.8); LYMPHOCYTES % (AUTO) 5.9 % (20.0-44.0); MEAN CORPUSCULAR HGB CONC 33 g/dl (31.0-36.0); MEAN CORPUSCULAR VOLUME 88 fL (80-96); MONOCYTES # (AUTO) 0.8 /CMM (0.1-1.30); MONOCYTES % (AUTO) 5.6 % (2.0-12.0); NEUTROPHILS # (AUTO) 13.1 /CMM (1.8-8.9); NEUTROPHILS % (AUTO) 88.3 % (43.0-81.0); PLATELET COUNT (AUTO) 393 /CMM (150-450); RED BLOOD CELL COUNT(AUTO) 3.43 MIL/uL (4.5-6.0); WHITE BLOOD COUNT (AUTO) 14.8 K/uL (4.3-11.0)
[2020-12-24 04:43] LABS: CALCIUM, SERUM 8.6 mg/dL (8.5-10.1); CREATININE 1.8 mg/dL (0.6-1.3); POTASSIUM 4.5 mmol/L (3.5-5.1)
--- NOTE | 2020-12-24 05:22 | NUR ---
FiO2 titrated to 70%. RN notified.
[2020-12-24] MEDS: MIDAZOLAM HCL 100 MG in IV NS 0.9% 80 ML IV PRN ×2 (05:53→22:28)
[2020-12-24] MEDS: PANTOPRAZOLE 40 MG VIAL IV SCH ×2 (08:36→16:53)
[2020-12-24] MEDS: HYDROCORTISONE SOD SUCCINATE 100 MG/2 ML VIAL IV SCH (08:36)
[2020-12-24] MEDS: AMIODARONE HCL 200 MG TABLET PO SCH ×2 (08:42→16:53)
[2020-12-24 08:54] LABS: ABG BASE EXCESS 2.4 mmol/L; ABG PCO2 41.3 mmHg (35.0-45.0); ABG PH 7.432 (7.350-7.450); ABG PO2 68.9 mmHg (75.0-100.0); AaDO2 385.8 mmHg; MetHb 0.4 % (0.0-1.5); O2Hb 92.6 % (94.0-97.0); SITE, ABG Right Radial
--- NOTE | 2020-12-24 09:11 | NUR ---
WOUND CARE FOLLOW UP: PT SEEN FOR SACRAL DEEP TISSUE INJURY WHICH IS IN EVOLUTION AND EXTENDS TO BUTTOCKS. DISCUSSED SKIN PROTECTION AND WOUND CARE WITH NURSING STAFF. RECOMMEND CONTINUING PRESENT TREATMENT OF OIL EMULSION DRESSING, COVER WITH ABD PAD AND SECURE WITH PAPER TAPE. OFFLOAD AREA. [facility] IN AGREEMENT WITH PLAN OF CARE. Addendum: 12/24/20 at 0913 by DARWIN GALVEZ Amended: Links added. Addendum: 12/24/20 at 0920 by DARWIN GALVEZ PT CONTINUES TO BE INTUBATED AND ON PRESSORS.
[2020-12-24] MEDS: GLUCERNA 1.2 1,000 ML BOTTLE NG PRN (10:02)
[2020-12-24] MEDS: NOREPINEPHRINE 8 MG in IV NS 0.9% 242 ML IV PRN (17:21)
[2020-12-25] VITALS (46 sets, daily range): BP systolic 106–137; BP diastolic 61–81
[2020-12-25] MEDS: BLOOD SUGAR DIAGNOSTIC 1 EACH STRIP IN SCH ×5 (00:30→23:48)
[2020-12-25] MEDS: INSULIN REGULAR, HUMAN 100 UNIT/ML 3 ML VIAL SQ PRN ×5 (00:31→23:50)
[2020-12-25] MEDS: PRECEDEX 400 MCG/100 ML BOTTLE 100 ML IV PRN ×6 (02:17→22:22)
[2020-12-25] MEDS: GLUCERNA 1.2 1,000 ML BOTTLE NG PRN (06:44)
[2020-12-25 08:56] LABS: ABG BASE EXCESS 3.9 mmol/L; ABG OXYGEN SATURATION 93.8 % (92.0-98.5); ABG PCO2 40.7 mmHg (35.0-45.0); ABG PH 7.457 (7.350-7.450); ABG PO2 69.7 mmHg (75.0-100.0); AaDO2 168.7 mmHg; COHb 0.6 % (0.5-1.5); MetHb 0.3 % (0.0-1.5); PEEP,BG 8 cm H2O; SITE, ABG Right Radial; VENT MODE, BG AC 2:1; VT, ABG 500 mL
[2020-12-25] MEDS: AMIODARONE HCL 200 MG TABLET PO SCH ×2 (09:00→09:32)
[2020-12-25] MEDS: PANTOPRAZOLE 40 MG VIAL IV SCH ×2 (09:25→16:31)
[2020-12-25] MEDS: HYDROCORTISONE SOD SUCCINATE 100 MG/2 ML VIAL IV SCH ×3 (09:39→21:38)
[2020-12-25 10:13] LABS: BASOPHILS % (AUTO) 0.2 % (0.0-2.0); EOSINOPHILS % (AUTO) 1.1 % (0.0-6.0); HEMATOCRIT 27 % (39-51); LYMPHOCYTES # (AUTO) 0.7 /CMM (0.8-4.8); LYMPHOCYTES % (AUTO) 7.2 % (20.0-44.0); MEAN CORPUSCULAR HGB CONC 33 g/dl (31.0-36.0); MEAN CORPUSCULAR VOLUME 89 fL (80-96); MONOCYTES # (AUTO) 0.4 /CMM (0.1-1.30); MONOCYTES % (AUTO) 3.6 % (2.0-12.0); NEUTROPHILS # (AUTO) 8.8 /CMM (1.8-8.9); NEUTROPHILS % (AUTO) 87.9 % (43.0-81.0); PLATELET COUNT (AUTO) 274 /CMM (150-450); RED BLOOD CELL COUNT(AUTO) 3.08 MIL/uL (4.5-6.0); WHITE BLOOD COUNT (AUTO) 10.1 K/uL (4.3-11.0)
[2020-12-25 10:24] LABS: CALCIUM, SERUM 8.5 mg/dL (8.5-10.1); CREATININE 1.5 mg/dL (0.6-1.3)
[2020-12-25] MEDS: MIDAZOLAM HCL 100 MG in IV NS 0.9% 80 ML IV PRN (16:43)
[2020-12-25] MEDS: NOREPINEPHRINE 8 MG in IV NS 0.9% 242 ML IV PRN (17:37)
[2020-12-26] VITALS (38 sets, daily range): BP systolic 123–153; BP diastolic 70–90
[2020-12-26] MEDS: PRECEDEX 400 MCG/100 ML BOTTLE 100 ML IV PRN ×7 (01:02→22:14)
[2020-12-26] MEDS: GLUCERNA 1.2 1,000 ML BOTTLE NG PRN (03:21)
[2020-12-26 05:06] LABS: BASOPHILS % (AUTO) 0.3 % (0.0-2.0); EOSINOPHILS % (AUTO) 0.2 % (0.0-6.0); HEMATOCRIT 26 % (39-51); HEMOGLOBIN 8.8 g/dL (13.5-17.5); LYMPHOCYTES # (AUTO) 0.4 /CMM (0.8-4.8); MEAN CORPUSCULAR HGB CONC 34 g/dl (31.0-36.0); MEAN CORPUSCULAR VOLUME 88 fL (80-96); MONOCYTES # (AUTO) 0.2 /CMM (0.1-1.30); MONOCYTES % (AUTO) 2.8 % (2.0-12.0); NEUTROPHILS % (AUTO) 91.7 % (43.0-81.0); PLATELET COUNT (AUTO) 240 /CMM (150-450); RED BLOOD CELL COUNT(AUTO) 2.97 MIL/uL (4.5-6.0); WHITE BLOOD COUNT (AUTO) 8.8 K/uL (4.3-11.0)
[2020-12-26 05:23] LABS: CALCIUM, SERUM 8.8 mg/dL (8.5-10.1); CREATININE 1.5 mg/dL (0.6-1.3); PHOSPHORUS 3.5 mg/dL (2.5-4.9); POTASSIUM 4.3 mmol/L (3.5-5.1)
[2020-12-26] MEDS: HYDROCORTISONE SOD SUCCINATE 100 MG/2 ML VIAL IV SCH ×3 (05:26→21:34)
[2020-12-26] MEDS: BLOOD SUGAR DIAGNOSTIC 1 EACH STRIP IN SCH ×4 (06:14→23:59)
[2020-12-26] MEDS: INSULIN REGULAR, HUMAN 100 UNIT/ML 3 ML VIAL SQ PRN ×3 (06:15→17:31)
--- NOTE | 2020-12-26 08:00 | NUR ---
RN NOTES RECEIVED PATIENT HAS NO SIGNS OF RESPIRATORY DISTRESS; STILL INTUBATED AND ON VENT SETTING TOLERATED. SEDATED ON VERSED DRIP 6MG/HR, GOAL IS TITRATE VERSED DOWN FOR EXTUBATING IF PATIENT TOLERATED, AND PRECEDEX 1.5 MCG/KG/HR. IV ACCESS MAINTAINED INTACT, SECURED AND FLUSHING WELL. ALL DUE MEDS ADMINISTERED ORDERED; OGT PATENT AND IN PLACE VERIFIED BY AUSCULTATION AND ASPIRATION. RESIDUAL IS 100CC . GLUCERNA 50 CC/HR. DEMARCO CATHETER PATENT AND IN PLACE DRAINING URINE BY GRAVITY. ALL NEEDS MET AND ATTENDED TO. WILL MONITORING.
[2020-12-26] MEDS: PANTOPRAZOLE 40 MG VIAL IV SCH ×2 (08:32→17:28)
[2020-12-26] MEDS: AMIODARONE HCL 200 MG TABLET PO SCH (08:32)
[2020-12-26] MEDS: MIDAZOLAM HCL 100 MG in IV NS 0.9% 80 ML IV PRN (09:24)
--- NOTE | 2020-12-26 18:30 | NUR ---
RN NOTES PATIENT AM CARE DONE SUCTION, DUE MEDICATION ADMINISTERED, V/S WNL, TITRATED VERSED PER PROTOCOL, BECAUSE PER PLAN IS DECREASE SEDATION FOR EXTUBATION. DUE MEDICATION ADMINISTERED, ASSIST TURN AND REPOSTION Q 2 HR. INFUSING VERSED 4.5MG, AND PRECEDEX 1.5 MCG/KG/HR. ENDORSED ONCOMING NURSE EMMANUEL.
--- NOTE | 2020-12-26 19:25 | NUR ---
ICU/SUPERINTENDENT FISH HATCHERY RECEIVED THE PT WITH SEDATION VERSED AT 4.5MCG. WILL CONTINUE TO MONITOR THIS PT.
[2020-12-27] VITALS (27 sets, daily range): BP systolic 91–179; BP diastolic 31–104
[2020-12-27] MEDS: PRECEDEX 400 MCG/100 ML BOTTLE 100 ML IV PRN ×7 (01:37→21:43)
--- NOTE | 2020-12-27 01:59 | NUR ---
ICU/SPEEDER HAND VERSED WAS LOWERED DOWN PER DR PARHAM ORDERS THAT HE WOULD LIKE TO WING THE PT DOWN OFF VERSED AND POSSIBLE EXTUBATION OF PT. WILL MONITOR THIS PT.
[2020-12-27] MEDS: GLUCERNA 1.2 1,000 ML BOTTLE NG PRN (03:38)
[2020-12-27] MEDS: HYDROCORTISONE SOD SUCCINATE 100 MG/2 ML VIAL IV SCH ×3 (05:09→20:59)
[2020-12-27] MEDS: IV NS 0.9% 250 ML IV PRN (05:23)
[2020-12-27 05:32] LABS: BASOPHILS % (AUTO) 0.2 % (0.0-2.0); HEMATOCRIT 30 % (39-51); HEMOGLOBIN 9.9 g/dL (13.5-17.5); LYMPHOCYTES # (AUTO) 0.6 /CMM (0.8-4.8); LYMPHOCYTES % (AUTO) 4.7 % (20.0-44.0); MEAN CORPUSCULAR HGB CONC 33 g/dl (31.0-36.0); MEAN CORPUSCULAR VOLUME 89 fL (80-96); MONOCYTES # (AUTO) 0.5 /CMM (0.1-1.30); MONOCYTES % (AUTO) 3.9 % (2.0-12.0); NEUTROPHILS # (AUTO) 12.3 /CMM (1.8-8.9); NEUTROPHILS % (AUTO) 91.2 % (43.0-81.0); PLATELET COUNT (AUTO) 322 /CMM (150-450); RED BLOOD CELL COUNT(AUTO) 3.36 MIL/uL (4.5-6.0); WHITE BLOOD COUNT (AUTO) 13.5 K/uL (4.3-11.0)
[2020-12-27 06:00] LABS: CALCIUM, SERUM 8.8 mg/dL (8.5-10.1); CREATININE 1.5 mg/dL (0.6-1.3); POTASSIUM 4.4 mmol/L (3.5-5.1)
[2020-12-27] MEDS: BLOOD SUGAR DIAGNOSTIC 1 EACH STRIP IN SCH ×3 (06:42→17:01)
[2020-12-27] MEDS: INSULIN REGULAR, HUMAN 100 UNIT/ML 3 ML VIAL SQ PRN ×4 (06:43→17:17)
[2020-12-27] MEDS: MIDAZOLAM HCL 100 MG in IV NS 0.9% 80 ML IV PRN (08:00)
[2020-12-27] MEDS: AMIODARONE HCL 200 MG TABLET PO SCH (08:10)
[2020-12-27] MEDS: PANTOPRAZOLE 40 MG VIAL IV SCH ×2 (08:10→16:52)
--- NOTE | 2020-12-27 09:00 | NUR ---
ICU/RN PT IS INTUBATED ON THE VENT AC MODE,FIO2-40% SAT O2-95%.PEEP-5 JUST DECREASED ORDERED.PT IS SEDATED WITH PRECEDEX .VERSED JUST STOP.PT IS TACHYPNEIC NOTIFIED NEW ORDERS FOR ATIVAN RECEIVED. V/S STABLE,AFEBRILE.NO PAIN REPORTED AT THIS TIME.OG TUBE IN PLACE INFUSING WITH GLUCERNA.F/C DRAINING WITH YELLOW URINE. GENERALIZED EDEMA PRESENT.SUCTION PROVIDED.REPOSITION FOR COMFORT.DUE MEDS ARE GIVEN ORDERD,LABS REVIEW.CONTINUE MONITORING.
[2020-12-27] MEDS: LORAZEPAM INJ 2 MG/ML VIAL IV PRN ×2 (09:59→13:18)
--- NOTE | 2020-12-27 14:05 | NUR ---
ICU/RN PT IS UNABLE TO TOLERATE BE WITHOUT VERSED AT THIS TIME. VERY AGITATED,HR INCREASED,RR INCREASED.BP 177/110.MD NOTIFIED.VERSED RESTARTED .ATIVAN D/C ORDERED.CONTINUE MONITORING
[2020-12-27] MEDS: HYDROCODONE/APAP 5/325MG TABLET PO PRN ×2 (14:43→19:22)
[2020-12-27] MEDS: hydrALAZINE HCL IV 20 MG VIAL IV PRN (15:17)
[2020-12-27 15:58] LABS: C-REACTIVE PROTEIN 8.8 mg/dL (0.0-0.9)
[2020-12-27] MEDS: ACETAMINOPHEN 325 MG TABLET PO PRN (16:51)
--- NOTE | 2020-12-27 17:00 | NUR ---
ICU/RN PM CARE PROVIDED.WOUND DRESSING DONE ORDERED.PT HAS T-101. 6.TYLENOL VIA G-TUBE GIVEN.SUCTION PROVIDED.REPOSITION FOR COMFORT.
--- NOTE | 2020-12-27 19:30 | NUR ---
ICU/REVENUE INSPECTOR PT APPEARS TO BE IN PAIN USING FLACC SCALE, PT HAD INCREASED HEART RATE TO 100'S, INCREASE RESPIRATORY RATE 30'S. NORWY GIVEN FOR THIS. WILL CONTINUE TO MONITOR THIS PT AND HIS PAIN.
--- NOTE | 2020-12-27 20:10 | NUR ---
ICU/FELLER OPERATOR RECEIVED PT ON VERSED DRIP AT 5MCG, PT APPEARS COMFORTABLE, NOTIFED THE CHARGE NURSE WHO THEN DECREASED THE VERSED DRIP DOWN TO 4.5MCG. WILL CONTINUE TO MONITOR THIS PT.
--- NOTE | 2020-12-27 22:30 | NUR ---
ICU/FINISHED CIGAR MAKER VERSED DRIP AT 4.5 MCG, PT APPEARS COMFORTABLE, NOTIFED THE CHARGE NURSE WHO THEN DECREASED THE VERSED DRIP DOWN TO 4.0 MCG. WILL CONTINUE TO MONITOR THIS PT AND HIS PAIN.
[2020-12-28] VITALS (38 sets, daily range): BP systolic 97–150; BP diastolic 52–86
[2020-12-28] MEDS: BLOOD SUGAR DIAGNOSTIC 1 EACH STRIP IN SCH ×4 (00:05→17:27)
[2020-12-28] MEDS: INSULIN REGULAR, HUMAN 100 UNIT/ML 3 ML VIAL SQ PRN ×3 (00:07→17:27)
[2020-12-28] MEDS: PRECEDEX 400 MCG/100 ML BOTTLE 100 ML IV PRN ×7 (00:47→21:11)
[2020-12-28] MEDS: HYDROCORTISONE SOD SUCCINATE 100 MG/2 ML VIAL IV SCH ×3 (04:13→21:11)
[2020-12-28 04:28] LABS: BASOPHILS % (AUTO) 0.1 % (0.0-2.0); HEMATOCRIT 25 % (39-51); HEMOGLOBIN 8.5 g/dL (13.5-17.5); LYMPHOCYTES # (AUTO) 0.5 /CMM (0.8-4.8); LYMPHOCYTES % (AUTO) 4.8 % (20.0-44.0); MEAN CORPUSCULAR HGB CONC 33 g/dl (31.0-36.0); MEAN CORPUSCULAR VOLUME 89 fL (80-96); MONOCYTES # (AUTO) 0.3 /CMM (0.1-1.30); MONOCYTES % (AUTO) 3.2 % (2.0-12.0); NEUTROPHILS % (AUTO) 91.9 % (43.0-81.0); PLATELET COUNT (AUTO) 221 /CMM (150-450); RED BLOOD CELL COUNT(AUTO) 2.85 MIL/uL (4.5-6.0); WHITE BLOOD COUNT (AUTO) 9.8 K/uL (4.3-11.0)
[2020-12-28] MEDS: IV NS 0.9% 250 ML IV PRN (04:39)
[2020-12-28 04:40] LABS: CALCIUM, SERUM 8.2 mg/dL (8.5-10.1); CREATININE 1.6 mg/dL (0.6-1.3); PHOSPHORUS 3.9 mg/dL (2.5-4.9); POTASSIUM 4.3 mmol/L (3.5-5.1)
--- NOTE | 2020-12-28 07:00 | NUR ---
RN NOTES RECEIVED PT ON BED , INTUBATED AND SEDATED, ON VERSED AND PRECEDEX , TOLERAING CURRENT VENT SETTING WELL, VSS STABLE, TF AT 50CC/HR RUNNING , NO RESIDUAL NOTED, SR UP x3, CALL LIGHT WITHIN EASY REACH, BED LOCKED AND IN LOWEST POSITION, WILL CONTINUE TO MONITOR .
[2020-12-28] MEDS: PANTOPRAZOLE 40 MG VIAL IV SCH ×2 (08:18→17:08)
[2020-12-28] MEDS: AMIODARONE HCL 200 MG TABLET PO SCH (08:19)
[2020-12-28] MEDS: MIDAZOLAM HCL 100 MG in IV NS 0.9% 80 ML IV PRN (12:15)
[2020-12-28] MEDS: SOD FERRIC GLUC 125 MG in IV NS 0.9% 100 ML IV SCH (14:05)
[2020-12-28] MEDS ORDERED: MIDAZOLAM HCL 2 MG/2ML VIAL ONE (15:46)
[2020-12-28] MEDS: GLUCERNA 1.2 1,000 ML BOTTLE NG PRN (16:07)
--- NOTE | 2020-12-28 18:00 | NUR ---
RN NOTES PT REMANINS INTUBATED AND SEDATED, ON PRECEDEX AND VERSED DRIP, VSS STABLE, TF AT 50CC/HR RUNNING , TOLERAING WELL. WILL ENDORSE TO RAILROAD MAINTENANCE CLERK NURSE FOR CONTINUITY OF CARE .
[2020-12-28] MEDS: HYDROCODONE/APAP 5/325MG TABLET PO PRN (21:11)
--- NOTE | 2020-12-28 21:16 | NUR ---
ICU/SALES OPERATIONS LEAD NORCO GIVEN FOR PAIN VIA G/TUBE. FLACC SCALE 10/10 WITH INCREASED RESPIRATIONS. WILL MONITOR THIS PT.
[2020-12-29] VITALS (34 sets, daily range): BP systolic 103–163; BP diastolic 56–87
[2020-12-29] MEDS: PRECEDEX 400 MCG/100 ML BOTTLE 100 ML IV PRN ×7 (00:36→23:40)
[2020-12-29] MEDS: BLOOD SUGAR DIAGNOSTIC 1 EACH STRIP IN SCH ×4 (00:51→17:23)
[2020-12-29] MEDS: INSULIN REGULAR, HUMAN 100 UNIT/ML 3 ML VIAL SQ PRN ×4 (00:56→17:25)
[2020-12-29] MEDS: HYDROCODONE/APAP 5/325MG TABLET PO PRN ×2 (02:33→13:13)
--- NOTE | 2020-12-29 02:34 | NUR ---
ICU/ANALYTICS MANAGER NORCO GIVEN FOR PAIN VIA G/TUBE. FLACC SCALE 7/10 WITH INCREASED RESPIRATIONS of 40. WILL MONITOR THIS PT AND HIS PAIN LEVEL. ALSO AT THIS TIME CHARGE NURSE INCREASED THE VERSED TO 5.0 FROM 4.5 DUE TO HIGH BP AN INCREASED RR.
[2020-12-29] MEDS: IV NS 0.9% 250 ML IV PRN (03:06)
[2020-12-29] MEDS: HYDROCORTISONE SOD SUCCINATE 100 MG/2 ML VIAL IV SCH ×3 (04:49→21:48)
[2020-12-29 05:16] LABS: HEMATOCRIT 25 % (39-51); HEMOGLOBIN 8.5 g/dL (13.5-17.5); LYMPHOCYTES # (AUTO) 0.3 /CMM (0.8-4.8); LYMPHOCYTES % (AUTO) 3.5 % (20.0-44.0); MEAN CORPUSCULAR HGB CONC 34 g/dl (31.0-36.0); MEAN CORPUSCULAR VOLUME 89 fL (80-96); MONOCYTES # (AUTO) 0.3 /CMM (0.1-1.30); MONOCYTES % (AUTO) 3.9 % (2.0-12.0); NEUTROPHILS # (AUTO) 8.2 /CMM (1.8-8.9); NEUTROPHILS % (AUTO) 92.6 % (43.0-81.0); PLATELET COUNT (AUTO) 225 /CMM (150-450); RED BLOOD CELL COUNT(AUTO) 2.84 MIL/uL (4.5-6.0); WHITE BLOOD COUNT (AUTO) 8.8 K/uL (4.3-11.0)
[2020-12-29 05:30] LABS: CALCIUM, SERUM 8.3 mg/dL (8.5-10.1); CREATININE 1.5 mg/dL (0.6-1.3); MAGNESIUM 2.1 mg/dL (1.8-2.4)
[2020-12-29] MEDS: PANTOPRAZOLE 40 MG VIAL IV SCH ×2 (08:58→16:15)
[2020-12-29] MEDS: AMIODARONE HCL 200 MG TABLET PO SCH (08:59)
--- NOTE | 2020-12-29 13:16 | NUR ---
PT GIVEN NORCO DUE TO INCREASING BP, RR, AND HR
[2020-12-29] MEDS: SOD FERRIC GLUC 125 MG in IV NS 0.9% 100 ML IV SCH ×2 (13:42→14:42)
[2020-12-29] MEDS: MIDAZOLAM HCL 100 MG in IV NS 0.9% 80 ML IV PRN (14:14)
--- NOTE | 2020-12-29 17:00 | NUR ---
PRN TYLENOL GIVEN FOR TEMP 100.2
[2020-12-29] MEDS: ACETAMINOPHEN 325 MG TABLET PO PRN (17:30)
--- NOTE | 2020-12-29 18:00 | NUR ---
PT BP INCREASING TO 150'S. PRN HYDRALAZINE AVAILABLE, BUT ONLY IF SBP >160, WILL CONTINUE TO MONITOR
[2020-12-29] MEDS: GLUCERNA 1.2 1,000 ML BOTTLE NG PRN (18:50)
--- NOTE | 2020-12-29 19:58 | NUR ---
RN NOTES RECEIVED PATIENT ORALLY INTUBATED WITH ETT 7.5 AND 25 CM AT LIP CONNECTED TO VENT SETTING AC 20 TV 500 FIO2 40% AND PEEP 5 SEDATED WITH PRECEDEX SR ON TELE MONTIOR. WITH OGT INTACT AND PATENT. IV SITE ON GENOVEVA ML WITH VERSED AND PRECEDEX RUNNING TITRATED ORDERED. KEPT HOB ELEVATED. KEPT PT CLEAN AND DRY. WILL CONT. TO MONITOR.
[2020-12-30] VITALS (28 sets, daily range): BP systolic 129–172; BP diastolic 61–91
[2020-12-30] MEDS: BLOOD SUGAR DIAGNOSTIC 1 EACH STRIP IN SCH ×4 (00:50→17:18)
[2020-12-30] MEDS: INSULIN REGULAR, HUMAN 100 UNIT/ML 3 ML VIAL SQ PRN ×4 (00:54→17:19)
[2020-12-30] MEDS: PRECEDEX 400 MCG/100 ML BOTTLE 100 ML IV PRN ×8 (02:36→22:20)
[2020-12-30] MEDS: HYDROCORTISONE SOD SUCCINATE 100 MG/2 ML VIAL IV SCH ×3 (05:46→20:48)
--- NOTE | 2020-12-30 06:52 | NUR ---
RN NOTES NO SIGNIFICANT CHANGES TROUGHOUT THE SHIFT. REMAINED ORALLY INTUBATED VENT SETTING TOLERATED WELL. AFEBRILE TMAX 100.4 NOW IS 98.7. CONTINUE ON VERSED AND PRECEDEX TITRATED ORDERED. SKIN CARE PROVIDED SKIN ASSESSMENT DONE WITH PHOTO TAKEN. KEPT PT CLEAN AND DRY.WILL CONT. TO MONITOR.
--- NOTE | 2020-12-30 07:23 | NUR ---
RN NOTES RECEIVED PT ON BED , INTUBATED AND SEDATED, TOLERATING CURRENT VENT SETTING, ON VERSED AND PRECEDEX, IVF TKO, OGT INTACT, NO RESIDUAL NOTED, VITAL SIGNS STABLE, CALL LIGHT WITHIN EASY REACH, BED LOCKED AND IN LOWEST POSITION, WILL CONTINUE CARES .
[2020-12-30 07:40] LABS: ABG BASE EXCESS 3.7 mmol/L; ABG OXYGEN SATURATION 96.8 % (92.0-98.5); ABG PCO2 38.9 mmHg (35.0-45.0); ABG PH 7.469 (7.350-7.450); ABG PO2 97.5 mmHg (75.0-100.0); COHb 0.1 % (0.5-1.5); O2Hb 96.7 % (94.0-97.0); SITE, ABG Right Radial; VENT MODE, BG AC 20 500 40% +5
--- NOTE | 2020-12-30 07:55 | NUR ---
WOUND CARE CONSULT/FOLLOW UP: PT SEEN FOR RE-EVALUATION OF SACRAL DEEP TISSUE INJURY IN EVOLUTION. WOUND IS NOTED TO HAVE NECROTIC TISSUE AND FOUL ODOR WITH SEROSANGUINOUS AND PURULENT DRAINAGE. RECOMMENDATIONS MADE FOR SKIN PROTECTION AND WOUND CARE. DISCUSSED WITH NURSING STAFF AND DR YADAV, SURGEON CURRENTLY ON CASE. PT IS ON LILI ISOFLEX LOW AIRLOSS BED. PT HAS MULTIPLE CO-MORBIDITIES INCLUDING COVID PNEUMONIA, RESPIRATORY FAILURE (CURRENTLY INTUBATED), ACUTE RENAL FAILURE, DIABETES AND SEPTIC SHOCK. DUE TO MULTIPLE CO-MORBIDITIES, FURGHER SKIN BREAKDOWN MAY BE UNAVOIDABLE. MD IN AGREEMENT WITH PLAN OF CARE. Addendum: 12/30/20 at 0759 by DARWIN CROSS WNDNU TREATMENT ORDERS UPDATED.
[2020-12-30] MEDS: PANTOPRAZOLE 40 MG VIAL IV SCH ×2 (08:12→17:18)
[2020-12-30] MEDS: AMIODARONE HCL 200 MG TABLET PO SCH (08:12)
[2020-12-30] MEDS: DAKINS QUARTER STRENGTH (0.125%) 480 ML BOTTLE TOP SCH (09:34)
[2020-12-30] MEDS: MIDAZOLAM HCL 100 MG in IV NS 0.9% 80 ML IV PRN (09:34)
--- NOTE | 2020-12-30 14:07 | NUR ---
RN NOTES RESUME VERSED PER PROTOCOL PER DR PARHAM.
[2020-12-30] MEDS: SOD FERRIC GLUC 125 MG in IV NS 0.9% 100 ML IV SCH (14:35)
[2020-12-30] MEDS: GLUCERNA 1.2 1,000 ML BOTTLE NG PRN (15:10)
--- NOTE | 2020-12-30 18:46 | NUR ---
RN CLOSING NOTES WEANED OFF VERSED THIS SHIFT, BUT PT GETS RESTLESS AND AGITATED, SO WAS RESUMED AND TITRATED BACK UP TO 5MG. PRECEDEX CONTINUES AT 1.5. TRUDI APPLIED TO SACRAL DTI. NO OTHER SIGNIFICANT CHANGES. OK TO TRANSFER TO [facility] FOR TRACH INSERTION AND FURTHER CARE. ENDORSED TO NIGHT RN.
[2020-12-30] MEDS ORDERED: LIDOCAINE 1%-EPI 1:100,000 20 ML VIAL TP ONE ×2 (19:30→20:30)
--- NOTE | 2020-12-30 19:40 | NUR ---
RN NOTES PATIENT is ORALLY INTUBATED WITH ETT 7.5 AND 25 CM AT LIP CONNECTED TO VENT AC 20 TV 500 FIO2 40% AND PEEP 5 . PATIENT IS SEDATED WITH PRECEDEX SR WITH BBB ON TELE MONITOR. WITH OGT INTACT AND PATENT., WITH MINIMAL RESIDUAL. IV SITE ON GENOVEVA ML RUNNING WITH VERSED AND PRECEDEX WILL TITRATED ORDERED. KEPT HOB ELEVATED. KEPT PT CLEAN AND DRY. WILL CONT. TO MONITOR.
[2020-12-30] MEDS: IV NS 0.9% 250 ML IV PRN (22:41)
[2020-12-31] VITALS (28 sets, daily range): BP systolic 120–161; BP diastolic 57–79
[2020-12-31] MEDS: INSULIN REGULAR, HUMAN 100 UNIT/ML 3 ML VIAL SQ PRN ×4 (00:18→17:19)
[2020-12-31] MEDS: BLOOD SUGAR DIAGNOSTIC 1 EACH STRIP IN SCH ×4 (00:18→17:20)
[2020-12-31] MEDS: hydrALAZINE HCL IV 20 MG VIAL IV PRN (00:40)
[2020-12-31] MEDS: PRECEDEX 400 MCG/100 ML BOTTLE 100 ML IV PRN ×7 (01:08→20:57)
[2020-12-31] MEDS: BISACODYL SUPP (10 MG) 10 MG/SUPP.RECT SUPP.RECT RC PRN (03:40)
[2020-12-31 04:57] LABS: HEMATOCRIT 26 % (39-51); HEMOGLOBIN 8.5 g/dL (13.5-17.5); LYMPHOCYTES # (AUTO) 0.5 /CMM (0.8-4.8); LYMPHOCYTES % (AUTO) 5.5 % (20.0-44.0); MEAN CORPUSCULAR HGB CONC 33 g/dl (31.0-36.0); MEAN CORPUSCULAR VOLUME 89 fL (80-96); MONOCYTES # (AUTO) 0.4 /CMM (0.1-1.30); MONOCYTES % (AUTO) 4.9 % (2.0-12.0); NEUTROPHILS % (AUTO) 89.6 % (43.0-81.0); PLATELET COUNT (AUTO) 213 /CMM (150-450); RED BLOOD CELL COUNT(AUTO) 2.87 MIL/uL (4.5-6.0); WHITE BLOOD COUNT (AUTO) 8.9 K/uL (4.3-11.0)
[2020-12-31 05:07] LABS: CREATININE 1.3 mg/dL (0.6-1.3); POTASSIUM 3.6 mmol/L (3.5-5.1)
[2020-12-31 05:19] LABS: C-REACTIVE PROTEIN 6.1 mg/dL (0.0-0.9)
[2020-12-31] MEDS: HYDROCORTISONE SOD SUCCINATE 100 MG/2 ML VIAL IV SCH (05:40)
[2020-12-31] MEDS: MIDAZOLAM HCL 100 MG in IV NS 0.9% 80 ML IV PRN (07:00)
--- NOTE | 2020-12-31 07:39 | NUR ---
RN NOTES RECEIVED PT INTUBATED AND AWAKE. ETT IN PLACE AND TOLERATING SETTINGS OF 40% FIO2 AND PEEP OF 5. OGT IN PLACE WITH GLUCERNA AT 50ML/HR TOLERATING WELL. GENOVEVA ML WITH VERSED RUNNING AT 4 AND PRECEDEX AT 1.5, N/S-TKO. ON TELEMETRY SB HIGHER 50'S. DEMARCO DRAINING WELL. APPEARS COMFORTABLE. WILL CONTINUE CARES.
--- NOTE | 2020-12-31 07:40 | NUR ---
RN NOTES PATIENT STABLE THROUGHOUT THE SHIFT. AFEBRILE. VSS. NSR OR SB ON TELE MONITOR WITH BBB. ETT AND VENT SETTING TOLERATED WELL NO CHANGES NO ACUTE RESPIRATORY DISTRESS. CONTINUE WITH SEDATION PRECEDEX AND VERSED TITRATED PROTOCOL. KEPT PT CLEAN AND DRY. WOUND DRESSING CHANGES ORDERED. 2200 PM - RECEIVED A CALL FROM [facility]. SPOKE TO ALISHA AND INFORMED THAT THERES STILL NO ICU BED OPEN AT THIS TIME. 0720 AM - CALLED TO RIKKI DAUGHTER AND UPDATED REGARDING THE PATIENT WILL BE TRANSFER TO [facility] FOR TRACH PLACEMENT ONCE THE ICU BED IS OPEN. GOT CONSENT FOR WOUND DEBRIDEMENT ON SACRAL AND BILATERAL BUTTOCKS. WITNESSED BY WEI. ENDORSED CONTINUITY OF CARE TO AM NURSE.
--- NOTE | 2020-12-31 08:00 | NUR ---
RT PATIENT REC'D ORALLY INTUBATED ON [facility] VENT WITH ORDERED SETTINGS. ALARMS CHECKED + AUDIBLE. ETT SECURE AND IN PROPER POSITION. AMBU BAG AT HOB. Addendum: 12/31/20 at 1617 by ANGELO IZAGUIRRE RT Amended: Links added.
[2020-12-31] MEDS: PANTOPRAZOLE 40 MG VIAL IV SCH ×2 (08:50→16:32)
[2020-12-31] MEDS: DAKINS QUARTER STRENGTH (0.125%) 480 ML BOTTLE TOP SCH (08:51)
[2020-12-31] MEDS: INSULIN GLARGINE, 100 UNIT/ML CARTRIDGE SQ SCH (10:39)
[2020-12-31] MEDS ORDERED: HYDROCORTISONE SOD SUCCINATE 100 MG/2 ML VIAL IV SCH (13:00)
[2020-12-31] MEDS ORDERED: LIDOCAINE 1% INJ 50 ML MDV IJ ONE (13:00)
[2020-12-31] MEDS: GLUCERNA 1.2 1,000 ML BOTTLE NG PRN (14:00)
[2020-12-31] MEDS: SOD FERRIC GLUC 125 MG in IV NS 0.9% 100 ML IV SCH (14:07)
--- NOTE | 2020-12-31 14:30 | NUR ---
RN NOTE DEBRIDEMENT DONE AT BEDSIDE BY SENIOR PRODUCT DESIGNER ANDRESSA PROM. NO BLEEDING NOTED. DAKIN SOAKED DRESSING DRY AND INTACT. PATIENT TOLERATED THE PROCEDURE.
[2020-12-31] MEDS: IV NS 0.9% 250 ML IV PRN (17:21)
--- NOTE | 2020-12-31 18:26 | NUR ---
RN CLOSING NOTES PT REMAINS INTUBATED AND SEDATED. ON VERSED AT 2MG/HR, PRECEDEX AT 1.5MCG, TOLERATING CURRENT VENT SETTINGS FIO2 40% PEEP OF 5, DEMARCO DRAINING WELL, DRESSING TO SACRUM DRY AND NO SIGNS OF BLEEDING AT THIS TIME, TOLERATING FEEDING AT 50ML/HR, VITAL SIGNS STABLE, SIDE RAILS UPX3, BED LOCKED AND IN LOWEST POSITION, WILL ENDORSE TO NIGHT NURSE FOR CONTINUITY OF CARE.
--- NOTE | 2020-12-31 20:00 | NUR ---
Received orally intubated on AC mode,breathing regular and non labored,mildly sedated on Precedex drip and Versed drip,opens eyes ,tracking with eyes, still unable to move extremities (=generalized edema), does not follow commands,= cough and gag, grimaces to pain. OGT with on going feeding ,tolerating well.Comfort care done, S/P sacral wound debridement today.
[2021-01-01] VITALS (43 sets, daily range): BP systolic 96–146; BP diastolic 51–74
--- NOTE | 2021-01-01 | NUR ---
Remains stable,no change still on precedex drip but patient awake,alert,calm ,not in any distress
[2021-01-01] MEDS: PRECEDEX 400 MCG/100 ML BOTTLE 100 ML IV PRN ×7 (00:09→20:39)
[2021-01-01] MEDS: BLOOD SUGAR DIAGNOSTIC 1 EACH STRIP IN SCH ×4 (00:10→17:36)
[2021-01-01] MEDS: INSULIN REGULAR, HUMAN 100 UNIT/ML 3 ML VIAL SQ PRN ×4 (00:15→17:30)
--- NOTE | 2021-01-01 04:00 | NUR ---
AM bath done ,chest tube dressings changed. Tolerated turning/no episode of desaturation or SOB. Addendum: 01/01/21 at 0731 by RAFI MURRAY RN Disregard above note ,entered in the wrong patient
[2021-01-01 04:45] LABS: BASOPHILS % (AUTO) 0.1 % (0.0-2.0); EOSINOPHILS % (AUTO) 0.1 % (0.0-6.0); HEMATOCRIT 29 % (39-51); HEMOGLOBIN 9.6 g/dL (13.5-17.5); LYMPHOCYTES # (AUTO) 0.6 /CMM (0.8-4.8); LYMPHOCYTES % (AUTO) 5.1 % (20.0-44.0); MEAN CORPUSCULAR HGB CONC 33 g/dl (31.0-36.0); MEAN CORPUSCULAR VOLUME 89 fL (80-96); MONOCYTES # (AUTO) 0.5 /CMM (0.1-1.30); MONOCYTES % (AUTO) 3.9 % (2.0-12.0); NEUTROPHILS # (AUTO) 11.1 /CMM (1.8-8.9); NEUTROPHILS % (AUTO) 90.8 % (43.0-81.0); PLATELET COUNT (AUTO) 234 /CMM (150-450); RED BLOOD CELL COUNT(AUTO) 3.29 MIL/uL (4.5-6.0); WHITE BLOOD COUNT (AUTO) 12.2 K/uL (4.3-11.0)
[2021-01-01 04:58] LABS: CALCIUM, SERUM 8.1 mg/dL (8.5-10.1); CREATININE 1.4 mg/dL (0.6-1.3); POTASSIUM 3.3 mmol/L (3.5-5.1)
--- NOTE | 2021-01-01 06:00 | NUR ---
Remains stable,alert,awakeand calm ,not in any distress. 0700 Report given to dayshift .
--- NOTE | 2021-01-01 07:15 | NUR ---
ICU NOTES RECEIVED PATIENT IN BED, ALERT AND AWAKE, ABLE TO NOD HEAD YES AND NO WHEN ASKED. ET TUBE INTACT AND PATENT. 7.5/28CM WITH VENT SETTING OF AC 20 TV 520 FIO2 OF 40% PEEP 5 WITH SPO2 OF 98-99%. BED IN LOWEST POSITION LOCKED. FREQUENT VISUAL CHECK DONE.
[2021-01-01] MEDS ORDERED: POTASSIUM CHLORIDE 20 MEQ POWDER PACKET NG SCH (08:00)
[2021-01-01] MEDS: PANTOPRAZOLE 40 MG VIAL IV SCH ×2 (08:30→17:06)
[2021-01-01] MEDS: INSULIN GLARGINE, 100 UNIT/ML CARTRIDGE SQ SCH (08:36)
[2021-01-01] MEDS: DAKINS QUARTER STRENGTH (0.125%) 480 ML BOTTLE TOP SCH (08:47)
[2021-01-01] MEDS ORDERED: AMIODARONE HCL 200 MG TABLET PO SCH (09:00)
[2021-01-01] MEDS: MIDAZOLAM HCL 100 MG in IV NS 0.9% 80 ML IV PRN (10:24)
[2021-01-01] MEDS: SOD FERRIC GLUC 125 MG in IV NS 0.9% 100 ML IV SCH (13:58)
[2021-01-01] MEDS: GLUCERNA 1.2 1,000 ML BOTTLE NG PRN (14:01)
--- NOTE | 2021-01-01 15:15 | NUR ---
GALLERY OR MUSEUM CURATOR NOTES WOUND CARE TEAM SEEN AND EXMAINED PATIENT.
--- NOTE | 2021-01-01 19:00 | NUR ---
RN NOTE RECEIVED PATIENT IN BED, MILDLY SEDATED, IN NO S/SX OF ACUTE DISTRESS AT THIS TIME. PATIENT ON ET TUBE CONNECTED TO MECHANICAL VENT WITH SETTINGS PRESCRIBED, SATURATION AT 96%, SR ON THE MONITOR, HR IS 81. NOTED OG TUBE INTACT AT 55 ON THE LIP, PLACEMENT WAS CONFIRMED BY ASPIRATION AND AUSCULTATION, WITH GLUCERNA 1.2 RERE REGULATED AT 50 ML/HR. GENOVEVA MIDLINE INTACT, BOTH HUBS PATENT AND FLUSHING WELL, NO S/S OF INFECTION, VERSED INFUSING AT 2 MG/HR, AND PRECEDEX AT 1.5 MCG/KG/HR. DEMARCO CATHETER CONNECTED TO URINE BAG IN PLACE DRAINING TO A CLEAR YELLOW URINE. SAFETY MEASURES HAVE BEEN PROVIDED AND IMPLEMENTED. PATIENT BED ALARM IS ON. HEAD OF BED ELEVATED. BED IS LOCKED, IN LOWEST POSITION AND SIDE RAILS UP. CALL LIGHT WITHIN REACH OF THE PATIENT. WILL CONTINUE TO MONITOR AND REASSESS FOR ANY CHANGES.
--- NOTE | 2021-01-01 19:33 | NUR ---
ICU NOTES PATIENT RESTING COMFORTABLY IN BED. DENIES ANY C/O PAIN NOR DISCOMFORT AT THIS TIME. ET TUBE INTACT AND PATENT. 7.5/28CM WITH VENT SETTING OF AC 20 TV 520 FIO2 OF 40% PEEP 5. ON VERSED AND PRECEDEX ELOINA WELL ORDERED. GENOVEVA MID LINE INACT AND PATENT. OGT INTACT AND PATENT ELOINA GLUCERNA 1.5 AT 50ML/HR ELOINA WELL. NO RESIDUAL OBSERVED. BED IN LOWEST POSITION LOCKED. FREQUENT VISUAL CHECK DONE.
--- NOTE | 2021-01-01 22:00 | NUR ---
RN NOTE TELEPHONE CALL RECEIVED FROM JACEY GILES OF [facility] [phone], STATED PATIENT WILL BE TRANSFERRED TO [facility] ICU BED 8, SHEETMETAL TRADES WORKER IS DISHA CHAPMAN [phone]. PATIENT WILL BE ICKED UP BETWEEN 2250 TO 2300. JACEY STATED PATIENT'S DAUGHTER WAS INFORMED [phone], AND OK WITH TRANSFER, DAUGHTER SAID NO NEED TO CALL HER FOR UPDATES LONG SHE KNOWS PATIENT WILL BE TRANSFERRED TONIGHT. EMBEDDED FIRMWARE ENGINEER AWARE.
--- NOTE | 2021-01-01 23:55 | NUR ---
RN NOTE REPORT GIVEN TO DISHA CHAPMAN, PATIENT WILL BE TRANSFERRED TO [facility] AT [phone] VIA ACLS PROTOCOL. EMT ARRIVED AT UNIT AT 2305. PATIENT SAFETY WAS MAINTAINED, RT INVOLVED IN THE TRANSFER. VERBAL REPORT GIVEN TO TOYIN CHAPMAN. ENDORSED ONGOING DRIPS VERSED INFUSING AT 2 MG/HR, AND PRECEDEX AT 1.5 MCG/KG/HR VIA GENOVEVA MIDLINE. ALL PATIENT BELONGINGS ACCOUNTED FOR AND TRANSFERRED WITH PATIENT. LEFT UNIT VIA GURNEY AT 2355 WITH TOYIN CHAPMAN AND 2 EMT PERSONNEL IN STABLE CONDITION, T 98.1, HR 67, 96%, RR27, BP 117/68. CHECKERING MACHINE OPERATOR, CM, AND RN AT [facility] WAS ALL NOTIFIED.
--- NOTE | 2021-01-01 23:58 | NUR ---
RT NOTE PATIENT PICKED UP BY TRANSPORT TEAM. PATIENT PLACED ON MECHANICAL VENT ON REPORTED SETTINGS TO EDUCATIONAL PSYCHOLOGY PROFESSORTOYIN. ETT IS SECURED. NO RESPIRATORY DISTRESS NOTED. EMERGENCY EQUIPMENT WITH TRANSPORT TEAM.
[2021-01-02] MEDS ORDERED: PROSOURCE / PROSTAT (PYXIS) 30 ML UDC GT SCH (09:00)
== END 2021-01-01 23:54 | disposition short-term general hospital (02) | DRG 853 ==
LOC: ER 09:43 → TRANSITION 15:25 → TELE2 15:53 → SAOV 12-05 23:25 → ICU 12-05 23:26
PROVIDERS: ADMIT Internal Medicine; ATTEND Internal Medicine
PROC: 30233N1 Transfusion of Nonautologous Red Blood Cells into Peripheral Vein, Percutaneous Approach (ICD-10-PCS; principal; 2020-11-23)
PROC: XW13325 Transfusion of Convalescent Plasma (Nonautologous) into Peripheral Vein, Percutaneous Approach, New Technology Group 5 (ICD-10-PCS; 2020-11-25)
PROC: 05HY33Z Insertion of Infusion Device into Upper Vein, Percutaneous Approach (ICD-10-PCS; 2020-11-25)
PROC: 5A1955Z Respiratory Ventilation, Greater than 96 Consecutive Hours (ICD-10-PCS; 2020-12-05)
PROC: 0BH18EZ Insertion of Endotracheal Airway into Trachea, Via Natural or Artificial Opening Endoscopic (ICD-10-PCS; 2020-12-05)
PROC: 0DB68ZX Excision of Stomach, Via Natural or Artificial Opening Endoscopic, Diagnostic (ICD-10-PCS; 2020-12-28)
PROC: 0KBP0ZZ Excision of Left Hip Muscle, Open Approach (ICD-10-PCS; 2020-12-31)
PROC: 0KBN0ZZ Excision of Right Hip Muscle, Open Approach (ICD-10-PCS; 2020-12-31)
DX: A41.89 Other specified sepsis (principal); U07.1 COVID-19; N17.0 Acute kidney failure with tubular necrosis; R65.21 Severe sepsis with septic shock; J12.82 Pneumonia due to coronavirus disease 2019; E43 Unspecified severe protein-calorie malnutrition; J96.01 Acute respiratory failure with hypoxia; L89.324 Pressure ulcer of left buttock, stage 4; L89.154 Pressure ulcer of sacral region, stage 4; L89.314 Pressure ulcer of right buttock, stage 4; I21.A1 Myocardial infarction type 2; G93.41 Metabolic encephalopathy; D62 Acute posthemorrhagic anemia; E27.40 Unspecified adrenocortical insufficiency; E87.2 Acidosis; I47.1 Supraventricular tachycardia; J90 Pleural effusion, not elsewhere classified; E87.0 Hyperosmolality and hypernatremia; D69.6 Thrombocytopenia, unspecified; E78.5 Hyperlipidemia, unspecified; E83.42 Hypomagnesemia; E86.1 Hypovolemia; E87.6 Hypokalemia; I48.0 Paroxysmal atrial fibrillation; K29.70 Gastritis, unspecified, without bleeding; E88.09 Other disorders of plasma-protein metabolism, not elsewhere classified; E11.65 Type 2 diabetes mellitus with hyperglycemia; Z79.84 Long term (current) use of oral hypoglycemic drugs; D63.8 Anemia in other chronic diseases classified elsewhere; N18.9 Chronic kidney disease, unspecified; Z68.30 Body mass index [BMI] 30.0-30.9, adult; I51.4 Myocarditis, unspecified; E11.22 Type 2 diabetes mellitus with diabetic chronic kidney disease; I12.9 Hypertensive chronic kidney disease with stage 1 through stage 4 chronic kidney disease, or unspecified chronic kidney disease; E87.70 Fluid overload, unspecified
CPT/HCPCS: 31720; 36410; 36415; 36600; 71045-TC; 80048-TC; 80053-TC; 80061-TC; 80076-TC; 80202-TC; 81001; 82272-TC; 82533; 82550-TC; 82553; 82570-TC; 82728-TC; 82803-TC; 82962-TC; 83540-TC; 83605-TC; 83615-TC; 83690-TC; 83735-TC; 83880; 83970; 84100-TC; 84155; 84155-TC; 84165; 84300-TC; 84478-TC; 84484-TC; 85025-TC; 85378-TC; 85610-TC; 85730-TC; 86140-TC; 86850-TC; 87040-TC; 87081-TC; 88305-TC; 88313-TC; 88342; 93307-TC; 94002-TC; 94003-TC; 94640-TC; 94760-TC; 94761-TC; 94799-TC; A4217; A6253; A6403; C9113; G0378; J0153; J0282; J0330; J0360; J1100; J1644; J1720; J1815; J1940; J1956; J2060; J2250; J2370; J2765; J2916; J3010; J3370; J3475; J3490; J7030; J7040; J7050; J7060; P9016-BL; P9017-BL; U0003